=== PATIENT | female | born 1930 | race Caucasian/White ===

== ENCOUNTER 2018-01-26 15:47 | Inpatient (IN) | payer MEDICARE ==
[2018-01-26] MEDS ORDERED: cefTRIAXone\\ROCEPHIN 1 GM VIAL ONE (17:21)
--- NOTE | 2018-01-26 19:14 | CT ---
CT OF THE BRAIN WITHOUT CONTRAST 01/26/18 COMPARISON: None. HISTORY: Renal failure. Fall with head trauma. TECHNIQUE: Multiple contiguous axial images were obtained in a CT of the brain without contrast. FINDINGS: There are scattered hypodensities in the subcortical and periventricular white matter, likely seconda ry to small vessel ischemic disease. No large confluent infarction is seen. There is no evidence of h ydrocephalus, intracranial hemorrhage or extra-axial fluid collection. The calvarium and overlying soft tissues are unremarkable. The visualized paranasal sinuses and masto id air cells are well aerated. IMPRESSION: No evidence of acute intracranial abnormality. POS: [facility]
[2018-01-26] MEDS ORDERED: Ondansetron ODT 4 MG TAB SL PRN (19:23)
[2018-01-26] MEDS ORDERED: Ondansetron HCl/PF 4 MG/2 ML Vial IVP PRN (19:23)
[2018-01-26] MEDS ORDERED: Sodium Chloride 0.9% 1,000 ML IV SCH (19:23)
[2018-01-26] MEDS ORDERED: Acetaminophen 325 MG TAB PO PRN (19:23)
[2018-01-27] MEDS ORDERED: Guaifenesin DM 100-10/5 ML UDCUP PO PRN (01:13)
[2018-01-27] MEDS ORDERED: Zolpidem Tartrate 5 MG TAB PO PRN (01:13)
[2018-01-27] MEDS ORDERED: traMADol HCl 50 MG TAB PO PRN (01:15)
[2018-01-27] MEDS ORDERED: Dextrose 5% in Water 1,000 ML IV SCH (01:15)
--- NOTE | 2018-01-27 04:05 | HP ---
REASON FOR ADMISSION: Acute renal failure, metabolic acidosis with 22-pound weight loss in the last 3 months. HISTORY OF PRESENT ILLNESS: The patient gives history of having fallen 2 weeks back in the restroom. She sustained left thigh bruises and likely fell on the left side of her chest as well. As patient was not complaining of any issue, the patient and her daughter who live together they stayed at home with not seeking any attention. Around 3:00 in the morning yesterday, the patient fell in the hallway. She also tried to latch onto glass cupboard, which apparently broke in the process. This woke her daughter and saw patient was on the floor. The patient also was frequently wanting to urinate. The second time she urinated, it was almost bloody urine. The daughter took her to [facility] from where she was transferred here for higher level of care. The patient also mentions that she has lost nearly 22 pounds from last 3 months. She has not been able to drink or eat much. She has been walking by herself without any assistive devices at home. No complaints of bleeding per rectum. No complaints of cough or expectoration. No complaints of chest pain, palpitation , PND or orthopnea. PAST MEDICAL AND SURGICAL HISTORY: History of hypertension, insomnia, osteoarthritis, left eye retina surgery. CURRENT MEDICATIONS: Lisinopril 20 mg twice daily, zolpidem 5 mg p.o. at bedtime p.r.n. for insomnia, calcium with vitamin D 1 tab daily. ALLERGIES: Allergic to PENICILLIN. PERSONAL HISTORY: Does not abuse alcohol or drugs. No history of smoking. She stays with her daughter. FAMILY HISTORY: Mother of pneumonia and its complications at the age of 86 years. She does not know much about her biological dad. Her stepdad in his 60s from unknown cancer. Her 2 sons are . One due to alcoholism and cirrhosis and other son of suicide at the age of 54. CODE STATUS: DNR. This was discussed with patient at bedside. Power of patent prosecution attorney is her daughter who is here at bedside. REVIEW OF SYSTEMS: The following complete review of systems was negative, unless otherwise mentioned in the HPI or below: Constitutional: Weight loss or gain, ability to conduct usual activities. Skin: Rash, itching. Eyes: Double vision, pain. ENT/Mouth: Nose bleeding, neck stiffness, pain, tenderness. Cardiovascular: Palpitations, dyspnea on exertion, orthopnea. Respiratory: Shortness of breath, wheezing, cough, hemoptysis, fever or night sweats. Gastrointestinal: Poor appetite, abdominal pain, heartburn, nausea, vomiting, constipation, or diarrhea. Genitourinary: Urgency, frequency, dysuria, nocturia. Musculoskeletal: Pain, swelling. Neurologic/Psychiatric: Anxiety, depression. Allergy/Immunologic: Skin rash, bleeding tendency. PHYSICAL EXAMINATION: GENERAL: The patient is an 87-year-old female who is currently not in any acute distress. VITAL SIGNS: Blood pressure 164/58, pulse 70 per minute, respiratory rate 20 per minute, temperature 97.9 degrees Fahrenheit, saturating 97% on room air. NECK: Supple, no elevated JVD. HEENT: Eyes: Extraocular muscles intact. Pupils reacting to light. Oral cavity: Mucous membranes are dry. No exudates or congestion. CARDIOVASCULAR SYSTEM: S1, S2 heard. Regular rhythm. RESPIRATORY SYSTEM: Air entry 1+ bilateral. No rales or rhonchi. ABDOMEN: Soft, bowel sounds heard. No tenderness, rigidity, or guarding. EXTREMITIES: No peripheral edema or calf tenderness. VASCULAR SYSTEM: Peripheral pulses 1+ bilateral, no ischemic ulcerations or gangrene. CENTRAL NERVOUS SYSTEM: No gross focal deficits seen. The patient is alert, awake, oriented well. PSYCHIATRIC SYSTEM: The patient's mood is euthymic. No hallucinations or delusions. LABORATORY DATA AND X-RAY FINDINGS: EKG done shows sinus rhythm with Q-waves seen in V1, V2, V3. White count of 6, H and H 10 and 32, platelet count 169, MCV is 98 with 69% neutrophils. Potassium is 5.5, sodium is 132, serum bicarbonate is 12, BUN 95, creatinine 4.8, glucose 91. UA shows more than 300 mg per deciliter of protein, positive nitrite, small bilirubin, small leukocyte esterase, greater than 50 wbc's, and 3+ bacteria. PA view chest with left rib series done shows fractures of left 8th and 9th rib, no acute infiltrate. CT brain shows no acute intracranial abnormality. Lumbar spine CT shows no acute osseous abnormality. CLINICAL IMPRESSION AND PLAN: The patient will be admitted to telemetry for acute renal failure, metabolic acidosis, urinary tract infection. The patient apparently had normal creatinine last year. It is unclear the reason for her 22 -pound weight loss with loss of appetite, which has been progressive from last 3 months. We will obtain CT chest, abdomen, and pelvis without contrast and ultrasound of the kidneys as well. Echo with 2D Doppler for LV function. She will be gently hydrated with D5 water at 75 mL per hour. We will consult Dr. Guadarrama for Nephrology. She will continue Norvasc 5 mg daily and Ambien p.r.n. for insomnia. Her overall prognosis is guarded given her age of 87 years and current acute renal failure. Please note I have seen and [facility]
[2018-01-27 05:45] LABS: #Eosinphils 0.1 thou/uL (0.0-0.7); #Lymphocytes 1.5 thou/uL (1.20-3.40); #Monocytes 0.5 thou/uL (0.11-0.59); #Neutrophils 6.8 thou/uL (1.40-6.50); %Basophils 0.1 % (0.0-1.0); %Eosinophils 0.9 % (0.0-10.0); %Lymphocytes 16.8 % (21.0-51.0); %Monocytes 5.5 % (0.0-10.0); %Neutrophils 76.7 % (42.0-75.0); Hemoglobin 12.2 g/dL (12.0-16.0); Mean Corpuscular HGB CONC 34.2 g/dL (32.0-36.0); Mean Corpuscular Hemoglobin 34.3 pg (27.0-31.0); Mean Platelet Volume 7.5 fL (7.4-10.4); Platelet Count 203 thou/uL (130-400); RBC Distribution Width 12.8 % (11.5-14.5); Red Blood Cell (RBC) Count 3.56 mill/uL (4.20-5.40); White Blood Cell (WBC) Count 8.8 thou/uL (4.8-10.8)
[2018-01-27 06:15] LABS: Anion Gap 16 mmol/L (10-20); BUN (Urea Nitrogen) 86 mg/dL (9.8-20.1); BUN/Creatinine Ratio 19.33; Calc. Creatinine Clearance 8 mL/min (70-130); Calcium 9.3 mg/dL (7.8-10.44); Carbon Dioxide 12 mmol/L (23-31); Chloride 112 mmol/L (98-107); Estimated GFR-MDRD 9; Glucose 96 mg/dL (83-110); Sodium 135 mmol/L (136-145)
--- NOTE | 2018-01-27 09:31 | CON ---
DATE OF CONSULTATION: 01/27/2018 RENAL MEDICINE SUBJECTIVE: Ms. Saha is an 87-year-old white female who was admitted for an acute kidney injury. According to the history, the patient has had frequent falls. In addition, she has had significant w eight loss. Of interest is she is also taking an MATTEO inhibitor and lisinopril. She is now admitted for further management of this acute kidney injury as well as a consultation for further renal evalua tion. Patient is currently receiving D5 water at 75 mL per hour. My plan is to change this to D5 no rmal saline at 100 mL per hour. REVIEW OF SYSTEMS: Positive for decreased appetite. Positive for frequent falls, no nausea, no vomi ting. Denies any hematochezia, no melena, no syncopal episode. Positive for rib pain, no headache, no syncopal episode, no productive cough, no fever or chills, decreased appetite, decreased energy le kennedy. HOME MEDICATIONS: Include lisinopril 20 mg tab twice a day, Ambien 5 mg at bedtime, calcium 1 tab ev day. TRAUMA: Status post fall. IMMUNIZATIONS: Not up to date. HOSPITALIZATIONS: Please see past medical history. SOCIAL HISTORY: The patient lives in [place]. She has 4 children, 2 . 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 Education; high school. Sedentary lifestyle. Lives with her daughter. No IV drug us e, no smoking, no alcohol intake. FAMILY HISTORY: No family history of ESRD. CODE STATUS: The patient is DNR. ALLERGIES: Includes PENICILLIN, POLYMYXIN B, NEOMYCIN, BACITRACIN. PHYSICAL EXAMINATION: VITAL SIGNS: Blood pressure 142/64, heart rate 73, respiratory rate 16, temperature 98.4, pulse ox 9 2%. GENERAL: Awake, supine, comfortable. SKIN: Decreased turgor. HEENT: She has pinkish conjunctivae, anicteric sclerae. NECK: No neck mass, no carotid bruits, no JVD. CHEST: No deformities. LUNGS: Clear breath sounds, no wheezing, no crackles. HEART: Normal sinus rhythm. No murmurs, no gallops, no rubs. ABDOMEN: Globular, soft, nontender, no masses. EXTREMITIES: No edema, no deformities. NEUROLOGIC: Awake, oriented to 3 spheres. Moving all extremities. No tremors, no asterixis, no josh fartun. IMAGING DATA: 1. On 01/26/2018, chest x-ray/ribs - no CHF. There are fractures involving the left 8th and 9th rib s. 2. CT scan of the head on 01/26/2018 showed no acute intracranial abnormality. 3. CT scan of the lumbar spine, no acute osseous abnormality. LABORATORY DATA: 1. Laboratories of 01/27/2018; sodium 135, potassium 5, chloride 112, carbon dioxide 12, BUN 86, cre atinine 4.45, and phosphorus is 5. 2. On 01/26/2018, creatinine 4.83. 3. On 05/25/2017, creatinine 0.86. 4. Urinalysis of 01/26/2018 showed WBC of 50, RBC of 50, protein is greater than 300, urine bacteria 3+. MEDICATIONS: Medications of 01/27/2018, Norvasc 5 mg daily, Lovenox 30 mg subcu daily status post ce ftriaxone 1 gram x1 dose. ASSESSMENT AND PLAN: 1. Acute kidney injury - urinalysis did not show any evidence of acute tubular necrosis. She does h ave proteinuria. She may simply have a hemodynamically mediated renal dysfunction suggested by a mayte y concentrated urine. Agree with IV hydration. We will change IV fluid to D5 normal saline at 100 m L per hour. I do anticipate improvement with the renal function. There is no indication for any acu te dialytic intervention. 2. Metabolic acidosis - most likely related to her acute kidney injury. I suspect this will improve with improving renal function. 3. Pyuria/hematuria - clinically asymptomatic. I would probably just observe her. 4. A renal ultrasound has been ordered to rule out any intrinsic renal problem. Overall, agree with current management.
[2018-01-27] MEDS: Docusate 100 MG CAP PO SCH ×2 (10:31→22:34)
[2018-01-27] MEDS: Enoxaparin Sodium 30 MG/0.3 ML SYRINGE SC SCH (10:34)
[2018-01-27] MEDS: Amlodipine 5 MG TAB PO SCH (10:34)
[2018-01-27] MEDS: Famotidine 20 MG TAB PO SCH (10:34)
[2018-01-27] MEDS: Dextrose 5 % And 0.9 % NaCl 1,000 ML IV SCH ×2 (10:39→21:29)
--- NOTE | 2018-01-27 12:31 | ULT ---
ULTRASOUND RENAL BILATERAL STANDARD: HISTORY: Renal failure. COMPARISON: CT same day. FINDINGS: The right kidney measures 10.4 x 5.6 x 4.8 cm and the left kidney measures 9.7 x 5 x 5.4 cm. Prevoid urinary bladder is 300 mL. There is layering debris versus mass within the posterior wall urinary b ladder. The wall is abnormally thickened. IMPRESSION: 1. Flat urothelial mass versus more likely debris within the urinary bladder with extensive wall thi ckening. Direct visualization is recommended. 2. No evidence of obstructive uropathy. POS: [facility]
--- NOTE | 2018-01-27 12:55 | CT ---
CT CHEST WITHOUT CONTRAST: CT ABDOMEN WITHOUT CONTRAST: CT PELVIS WITHOUT CONTRAST: HISTORY: Twenty-two pound weight loss. Renal failure. Evaluate for mass. COMPARISON: None. FINDINGS: The lungs are clear. No focal air space consolidation, pneumothorax, or effusion. Small perifissura l lymph nodes. There is a mildly displaced fracture at the left lateral 8th rib. There is a fracture of the left po sterolateral 9th rib with one-half shaft width displacement. A posterior left 10th rib buckle fractu re is present. No thoracic spine compression deformity. The sternum and manubrium are intact. No thoracic spine compression fracture. No lumbar spine compr ession fracture. 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 Mild atherosclerotic plaque of the aorta. No pericardial effusion. There is abnormal inflammation surrounding the urinary bladder with areas of wall thickening. There is abnormal infiltration to the prevesical space. No dilated loops of large or small bowel. No free intraperitoneal gas or fluid. No aneurysmal dilat ation of the aorta. No hydroureteronephrosis or nephroureterolithiasis. No evidence of a recently passed stone. IMPRESSION: Extensive wall thickening of the urinary bladder with abnormal infiltration to the prevesical space. This may be sequela or cystitis versus a malignant process. Direct visualization recommended. Urol ogic consultation recommended. CODE T POS: [facility]
--- NOTE | 2018-01-27 14:23 | PDOC.PN ---
- Subjective Encounter Start Date: 01/27/18 Encounter Start Time: 11:40 Patient denies complaints. She denies being cold in spite of low body temp. On review she reports decreased appetite and weight loss for 3 months. Generalized fatigue. - Objective Resuscitation Status: Resuscitation Status DNR:Do Not Resuscitate Vital Signs & Weight: Vital Signs (12 hours) Temp Pulse Pulse Pulse Resp BP BP 01/27/18 10:34 73 142/64 H 01/27/18 08:31 69 74 162/69 H 01/27/18 07:30 98.4 F 73 16 01/27/18 04:00 97.4 F L 74 16 BP BP Pulse Ox Pulse Ox 01/27/18 10:34 01/27/18 08:31 181/70 H 90 L 01/27/18 07:30 142/64 H 92 L 01/27/18 04:00 155/70 H 94 L Weight Admit Weight 127 lb 12.8 oz Weight 127 lb 12.8 oz I&O: 01/26/18 01/27/18 01/28/18 06:59 06:59 06:59 Intake Total 250 Output Total 650 Balance -400 Result Diagrams: 01/27/18 05:27 01/27/18 05:27 Phys Exam - Physical Examination Constitutional: NAD HEENT: PERRLA, moist MMs, oral pharynx no lesions Neck: no nodes, no JVD Respiratory: no wheezing, no rales, clear to auscultation bilateral Cardiovascular: RRR, no significant murmur Gastrointestinal: soft, non-tender, no distention Musculoskeletal: no edema Psychiatric: normal affect Dx/Plan (1) ARF (acute renal failure) Status: Acute Plan: Etiology is unclear, but may be related to meds and decreased intake. Nephrology consulted. Continue with fluids. (2) UTI (urinary tract infection) Status: Acute Qualifiers: Urinary tract infection type: acute cystitis Plan: Will continue with Rocephin renally dosed starting tomorrow. (3) Weight loss, abnormal Code(s): R63.4 - ABNORMAL WEIGHT LOSS Status: Acute Plan: Had CT chest abdomen and pelvis with some bladder wall thickening. No other major pathology seen. May be secondary to uremia. (4) Hypothermia Code(s): T68.XXXA - HYPOTHERMIA, INITIAL ENCOUNTER Status: Acute Plan: Likely somewhat benign secondary to being in the scanner for a period of time. Ordered warming therapy. Does not appear to be secondary sepsis. (5) Essential hypertension Code(s): I10 - ESSENTIAL (PRIMARY) HYPERTENSION Status: Chronic - Plan * As above.
--- NOTE | 2018-01-28 00:21 | CON ---
DATE OF CONSULTATION REQUEST AND REPORT: 01/27/2018 REASON FOR CONSULTATION: 1. Gross hematuria, R31.0 2. Urinary retention, R33.9 3. Abnormal urinary tract, radiological, R93.49 4. Cystitis, N30.90 5. Abnormal weight loss, R63.4 6. Acute renal insufficiency, N28.9 HISTORY OF PRESENT ILLNESS: Ms. Karin Saha is a pleasant 87-year-old elderly white female who resides at home in the care of her daughter. Over the last month or so, Ms. Saha has lost her appetite and has been having difficulty with feeding and maintaining adequate hydration. The patient does not report significant colon difficulties. No diarrhea at home and does have a chronic history of constipation, but this has not been bad over the last month. The patient apparently has developed a relative anorexia and desired not to eat over the last month. The patient has had some urinary frequency at home up to every 30 minutes. The patient is postmenopausal and has not had any previous gynecologic surgeries. She has never been on hormonal replacement therapy. She is a lifelong nonsmoker, but did have significant secondhand cigarette smoke exposure from her who was a smoker. Her daughter also smokes. Ms. Saha acts as a partial historian for herself today and her daughter also acts as a partial historian. HOME MEDICATION: List includes; 1. Lisinopril 20 mg twice daily. 2. Ambien 5 mg at bedtime. 3. Calcium 1 tablet p.o. daily. SOCIAL HISTORY: The patient resides in [place]. She has run a refill shop for number of years and also had [employer] business where she might have had some industrial exposures. There were no lifetime employment exposures other than this to significant chemicals that may result in cancer. The patient has no history of drug abuse, personal smoking or alcohol intake. FAMILY MEDICAL HISTORY: No history of bladder or renal cancers. No history of renal disease. ALLERGIES: The patient is allergic to PENICILLIN, POLYMYXIN, NEOMYCIN, and BACITRACIN. REVIEW OF SYSTEMS: Constitutional: Positive for a 22-pound weight loss. Musculoskeletal: Negative. Neurologic: Negative for past history of stroke. Gastrointestinal: Positive for decreased appetite. Negative for hematochezia or melena. Cardiac: The patient does have positive history of recent chest pain secondary to rib fractures after a fall, but did not have it prior to this. Endocrinologic: Negative for history of diabetes or endocrinologic disorders. PHYSICAL EXAMINATION: VITAL SIGNS: As per chart. The patient's current heart rate is 105, respirations 12. HEAD, EYES, EARS, NOSE, AND THROAT: Extraocular movements are intact. Sclerae are anicteric. Oropharynx is clear. The patient is dentures. SKIN: Examination of skin finds contusion on the patient's left forehead. NECK: Supple. There is positive jugular venous distention. CARDIAC: There is a regular, but tachycardic rate. PULMONARY: Lungs are clear to auscultation bilaterally. ABDOMEN: Soft and nontender. Patient has no suprapubic fullness or distention. GENITOURINARY: Deferred to the operative suite. EXTREMITIES: Free of evidence of deformity or edema. NEUROLOGIC: Patient is alert and oriented. She has a little trouble with dates and with the trial paralegal, but was able to get it on a secondary guess. She seems to have some reasonable recall and short-term memory that appears reasonable. LABORATORY STUDIES: The patient's baseline creatinine in 05/2017 was 0.86. At admission, creatinine is 4.83. The patient's creatinine did come down minimally to 4.45 overnight. The patient's hemoglobin is 12.2 with hematocrit of 35.7. White cell indices show a left shift of 76%. Urinalysis shows 50 white cells and 50 red cells, protein greater than 300, and urine bacteria 3+. RADIOLOGIC STUDIES: A renal ultrasound with bladder evaluation shows possible posterior bladder wall debris accumulation similar findings observed on CT scan , in both studies, bladder is relatively full. On the CT scan, notable findings of possible diffuse infiltration of the bladder wall and bladder wall thickening. ASSESSMENT AND PLAN: 1. Acute kidney injury, possibly secondary to dehydration given with a history of inadequate fluid and food intake. 2. Metabolic acidosis, probably related to the patient's kidney injury as well as inadequate food intake. 3. Pyuria, hematuria history. The patient did have hematuria on her second void after her fall. This could be related to her fall directly, we do not have contrast imaging studies, so it is not possible to completely assess for possible kidney fracture injury or other issue. Her kidney function is too poor to allow that at this point. 4. Postmenopausal status, not on hormonal replacement therapy. 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 Given two imaging studies with large amounts of urine seen in the patient's bladder, I suspect a degree of outlet obstruction is contributing to the patient's presentation and possible urinary tract infection as well. The patient should be appropriately covered on antibiotics during admission. I would plan on proceeding to the operating room for cystoscopic evaluation tomorrow evening. The patient should be made n.p.o. after breakfast in the morning of 01/28/2018. The patient may require transurethral resection of the bladder if there were tumors observed in her bladder lining. She appears relatively low risk except for age and possible industrial exposure to chemicals as well as secondhand smoke exposure from her . Over 70 minutes of initial evaluation and assessment time was spent in evaluation and assessment of this patient , over of which was in face to face evaluation or in coordination of care, or communication with the patient's family regarding her care, exclusive of any procedures performed, [id number]. MTDD
[2018-01-28] MEDS: Aztreonam 1 GM in Sodium Chloride 0.9% 100 ML IVPB SCH ×3 (05:26→23:04)
[2018-01-28 06:05] LABS: ALT (SGPT) 9 U/L (8-55); AST (SGOT) 18 U/L (5-34); Albumin 3.3 g/dL (3.4-4.8); Alkaline Phosphatase 161 U/L (40-150); Anion Gap 10 mmol/L (10-20); BUN (Urea Nitrogen) 76 mg/dL (9.8-20.1); Bilirubin, Total 0.4 mg/dL (0.2-1.2); Calc. Creatinine Clearance 9 mL/min (70-130); Calcium 8.7 mg/dL (7.8-10.44); Carbon Dioxide 14 mmol/L (23-31); Chloride 116 mmol/L (98-107); Estimated GFR-MDRD 10; Globulin 1.6 g/dL (2.4-3.5); Glucose 98 mg/dL (83-110); Potassium 4.9 mmol/L (3.5-5.1); Protein, Total 4.9 g/dL (6.0-8.3); Sodium 135 mmol/L (136-145)
--- NOTE | 2018-01-28 08:37 | PRG ---
DATE OF SERVICE: 01/28/2018 SUBJECTIVE: Ms. Saha is an 87-year-old white female who has been seen by the Renal Service for her acute kidney injury. At that time, I felt that this was a hemodynamically mediated renal dysfunctio n. She has been empirically volume repleted. A slight improvement in renal function was noted today . In addition, Urology has evaluated this patient for the hematuria and pyuria. A planned cystoscop y for tonight has been scheduled. She is currently on empiric IV antibiotics. Please note we have d iscontinued the patient's lisinopril due to the acute kidney injury. No new complaints today. She denies any chest pain, shortness of breath. OBJECTIVE: VITAL SIGNS: Blood pressure is 151/65, heart rate 73, respiratory rate 18, temperature 97.9, pulse o ximetry 95% on room air. GENERAL: Awake, alert, comfortable, not in distress. SKIN: Decreased turgor. HEENT: She has pinkish conjunctivae, anicteric sclerae. NECK: No neck mass, no carotid bruits, no JVD. CHEST: No deformities. LUNGS: Clear breath sounds. No wheezing, no crackles. HEART: Normal sinus rhythm. No murmur, no gallops or rubs. ABDOMEN: Globular, soft, nontender, no masses. EXTREMITIES: No edema. MEDICATIONS: Medications of 01/28/2018 was reviewed. LABORATORY DATA: Laboratories of 01/27/2018, white count 8.8, hemoglobin 12.2; 01/28/2018, sodium 13 5, potassium 4.9, chloride 116, carbon dioxide 14, BUN 76, creatinine of 4.1, albumin 3.3. ASSESSMENT AND PLAN: 1. Acute kidney injury -- consider hemodynamically mediated renal dysfunction. We will be reviewing a repeat urinalysis and urine chemistries with this patient. A renal ultrasound showed no acute obs truction. Continue current management. No indication for any dialytic intervention. 3. Hematuria/pyuria -- Urology has been consulted. Planned cystoscopy is being considered. Overall, agree with current management. We will be rechecking a base met and CBC in a.m. Urinalysis and urine chemistries have been ordered today.
[2018-01-28] MEDS: Famotidine 20 MG TAB PO SCH (09:07)
[2018-01-28] MEDS: Amlodipine 5 MG TAB PO SCH (09:07)
[2018-01-28] MEDS: Enoxaparin Sodium 30 MG/0.3 ML SYRINGE SC SCH (09:08)
[2018-01-28] MEDS: Docusate 100 MG CAP PO SCH ×2 (09:08→23:03)
--- NOTE | 2018-01-28 09:59 | PDOC.PN ---
- Subjective Encounter Start Date: 01/28/18 Encounter Start Time: 09:58 Doing a little better this morning. She is still having some bladder spasms. Hungry this morning. - Objective Resuscitation Status: Resuscitation Status DNR:Do Not Resuscitate Vital Signs & Weight: Vital Signs (12 hours) Temp Pulse Resp BP BP Pulse Ox 01/28/18 09:07 75 158/72 H 01/28/18 04:00 97.9 F 73 18 151/65 H 95 Weight Admit Weight 127 lb 12.8 oz Weight 127 lb 12.8 oz I&O: 01/27/18 01/28/18 01/29/18 06:59 06:59 06:59 Intake Total 250 1640 0 Output Total 650 550 Balance -400 1090 0 Result Diagrams: 01/27/18 05:27 01/28/18 05:25 Phys Exam - Physical Examination Constitutional: NAD HEENT: PERRLA, moist MMs Respiratory: no wheezing, no rales, no rhonchi, clear to auscultation bilateral Cardiovascular: RRR, no significant murmur Gastrointestinal: soft, non-tender, no distention, positive bowel sounds Musculoskeletal: no edema Neurological: non-focal Psychiatric: normal affect Dx/Plan (1) ARF (acute renal failure) Status: Acute Plan: Nephrology following. Continue with fluids. Slightly better this morning. May be related to outlet obstruction. Lost IV. Awaiting access. (2) UTI (urinary tract infection) Status: Acute Qualifiers: Urinary tract infection type: acute cystitis Plan: Received abx initially and no urine culture pending. Will resume Rocephin. (3) Weight loss, abnormal Code(s): R63.4 - ABNORMAL WEIGHT LOSS Status: Acute Plan: Unclear if related to uremia or other issue. Evaluating abnormal imaging of bladder. Hungry today which would suggest it may be related to uremia. (4) Bladder wall thickening Code(s): N32.89 - OTHER SPECIFIED DISORDERS OF BLADDER Status: Acute Plan: Appreciate Urology consult. Will have cysto later today. (5) Hypothermia Code(s): T68.XXXA - HYPOTHERMIA, INITIAL ENCOUNTER Status: Resolved (6) Essential hypertension Code(s): I10 - ESSENTIAL (PRIMARY) HYPERTENSION Status: Chronic - Plan * As above.
[2018-01-28] MEDS ORDERED: cefTRIAXone\\ROCEPHIN 1 GM in Sodium Chloride 0.9% 100 ML IVPB SCH (11:00)
[2018-01-28] MEDS: Dextrose 5 % And 0.9 % NaCl 1,000 ML IV SCH ×2 (12:36→18:44)
[2018-01-28 13:48] LABS: Bilirubin Negative (Negative); Blood, Urine Large (Negative); Clarity TURBID (Clear); Glucose, Urine (Dipstick) Negative (Negative); Leukocyte Large (Negative); Nitrite Negative (Negative); Protein, Urine (Dipstick) 100 mg/dL (Neg-Trace); Specific Gravity, Urine 1.015 (1.002-1.036); Urobilinogen 0.2 mg/dL (0.2-1.0)
[2018-01-28 13:52] LABS: Bacteria/HPF None Seen HPF (None Seen); Hyaline Casts/LPF 4-6 HYALINE CAST LPF (0-3 Hyaline); RBC/HPF GREATER THAN 50-TNTC HPF (0-3)
[2018-01-28] MEDS ORDERED: PHENYLEPHRINE-NS 100 MCG/ML 10 ML SYRINGE ONE (14:45)
[2018-01-28] MEDS ORDERED: PROPOFOL 200 MG/20 ML VIAL ONE (14:46)
--- NOTE | 2018-01-28 19:11 | PDOC.EVN ---
Event Note - Event Note Event Note: Procedure: Central venous access catheter (procedure aborted) 1600 01/28/18 Attending Physician: Perfecto Cabrales MD Assisting Physician: Vilma Robles DO Primary Primary Physician: Kelton Valerio DO Indication: IV access Attending physician in attendance Consent: Consent was obtained from the patients daughter (POA) for the procedure. Indications, risks and benefits were explained at length. The procedure was attempted routinely and a signed consent form was placed in the patients chart. Procedure summary: Sterile technique was used and hands were washed prior to beginning procedure. I wore a surgical cap, mask with protective eyewear, full gown and sterile gloves throughout the procedure. The pt was placed in the Trendelenburg position. Right chest and neck region was prepped using chlorhexadine scrub and draped in a sterile fashion. The medial and lateral heads of the SCM were identified as was the carotid pulse. The IJ vein was identified using US, but was found to be extremely sensitive to collapse. Anesthesia was achieved using 1 % lidocaine. The introducer needle was advanced with successful venous blood return after several attempts; however, upon attempting to advance the guide wire minor resistance was met and the guide wire was withdrawn. Introducer needle was withdrawn and pressure was held over IJ. After attempting IJ placement, pt was re-prepped and draped to attempt RT sublcavian access; however , pt had palpable pulse under the clavicle on the RT and as such there was concern for abnormal anatomy and no attempt was made for central venous catheter placement at the RT sublclavian site. Lastly, pt was again re-prepped and draped over rt groin and US was placed to identify anatomy which revealed a femoral vein directly behind the femoral artery. Ultimately, the procedure was aborted for the above reasons. The pt did not have any immediate complications from the procedure the nursing staff was notified upon completion of procedure. EBL was 25mL.
--- NOTE | 2018-01-28 19:31 | SPC ---
ULTRASOUND WITH FLUOROSCOPIC GUIDED PICC LINE PLACEMENT 01/28/18 COMPARISON: None. HISTORY: Need for fci IV antibiotics. Bladder mass biopsy. FINDINGS: The patient is brought to the [facility]. All questions were answered. The patient's left arm was prepped and draped in the normal sterile fashion. The basilic vein was not patent. No cephalic vein was available. The brachial vein had to be accessed . 1 mL of lidocaine was instilled in the superficial and deep soft tissues. Over a wire and through a peel away sheath, a PICC line was placed. The wire was unable to pass the axilla due to stenosis. Gi harleen that this line was for short term IV access, it was felt adequate that the line would be placed p eripherally. The line was cut at 15 cm with tip at the axillary vein. IMPRESSION: Technically successful ultrasound and fluoroscopic guided PICC line placement which is not central in location. The tip is at the mid peripheral left axillary vein. The patient tolerated the procedure well without complication. Findings were discussed with the patient's nurse by the technologist. FLUORO TIME: 2.7 minutes. DOSE: 2809 mGy*cm2. POS: HOME
[2018-01-28] MEDS ORDERED: Fentanyl 250 MCG/5 ML VIAL ONE (19:51)
[2018-01-28] MEDS ORDERED: Ondansetron HCl/PF 4 MG/2 ML Vial IVP PRN (20:14)
[2018-01-28] MEDS ORDERED: Bupivacaine 0.75% W/DEXTROSE 8.25% 2 ML AMP ONE (20:35)
[2018-01-28] MEDS ORDERED: Lidocaine 2% 10 ML INJ ONE (20:35)
[2018-01-28] MEDS ORDERED: cefTRIAXone\\ROCEPHIN 1 GM VIAL ONE (20:36)
[2018-01-28] MEDS ORDERED: Fentanyl 100 MCG/2 ML VIAL ONE (20:47)
[2018-01-28] MEDS ORDERED: Iothalamate Meglumine 60% 50 ML VIAL FS ONE (21:20)
[2018-01-28] MEDS ORDERED: Gentamicin 80 MG/2 ML VIAL ONE (21:29)
[2018-01-28] MEDS: Estrogens, Conjugated 30 GM TUBE VAG SCH (23:04)
--- NOTE | 2018-01-29 01:15 | CON ---
DATE OF CONSULTATION: 01/28/2018 CONSULTATION/PROGRESS NOTE DATE OF INITIAL CONSULTATION REQUEST: 01/27/2018 INITIAL REASON FOR CONSULTATION: 1. Gross hematuria, R31.0 2. Urinary retention, R33.9 3. Abnormal urinary tract, radiological, R93.49 4. Cystitis, N30.90 5. Abnormal weight loss, R63.4 6. Acute renal insufficiency, N28.9 HISTORY OF PRESENT ILLNESS: Ms. Karin Saha is a pleasant 87-year-old elderly white female brought in by her daughter with a history of a fall with rib fractures and gross hematuria developing after the fall. The patient had some imaging studies performed in the emergency department on 01/27/2018, which included a renal ultrasound study and a CT scan of the abdomen and pelvis. Both of these demonstrated the presence of layering of posterior bladder wall debris or tumor. I was consulted to evaluate the patient with regard to that and with regard to her gross hematuria episode. Yesterday, we recommended drainage catheter and culture the patient's urine collected by catheter method. The patient had about 400 mL of urine out by Daniels catheter during the day. She does have acute renal failure. A Gram stain of the patient's urine demonstrates presence of gram-negative rods. We did start the patient on aztreonam yesterday and she has also received a dose of ceftriaxone in addition. The patient is doing well, but complains of suprapubic discomfort today. She has had some access issues with respect to IV medications. The patient has been n.p.o. all day. PHYSICAL EXAMINATION: VITAL SIGNS: The patient has been afebrile by standard criteria with current temperature of 98.1, pulse 73, respirations 20, blood pressure is 156/65. HEAD, EARS, EYES, NOSE, AND THROAT: Extraocular movements are intact. Sclerae are anicteric. Oropharynx is clear. NECK: Supple. LUNGS: Clear to auscultation bilaterally. CARDIAC: Regular rate and rhythm. She is markedly less tachycardic than she was yesterday, apparently secondary to volume replacement. ABDOMEN: Superiorly is soft and nontender. Inferior to the umbilicus, there is tenderness in the suprapubic area suggestive of cystitis or a full bladder. I am not able to palpate a bladder mass or any other lesions. PELVIC: Deferred to the operative suite. EXTREMITIES: Appear essentially within normal limits with a few ecchymoses. LABORATORY STUDIES: Urinalysis from yesterday shows a urine gravity of 1.015. There is a large amount of leukocyte esterase. Microscopic analysis shows greater than 50 red cells per high-power field and greater than 50 white cells per high-power field. There were 4-6 squamous epithelial cells seen on the catheterized specimen. A CBC was not obtained today. Serum chemistries do show the patient's creatinine down mildly to 4.1 with a blood urea nitrogen now at 76. ASSESSMENT AND PLAN: 1. Concerns for posterior bladder wall mass. The patient will undergo cystoscopic assessment today. 2. General elderly concerns. The patient has had some trouble with urinary frequency and urgency for about 3-4 weeks. These symptoms predate the patient' s fall at home. She did have at least 1 gross hematuria episode at home. This was after her fall. The patient is at risk due to postmenopausal status for urethral stricture secondary to vaginal atrophy due to low-estrogen status. In addition, urinary tract infection in elderly is a concern. The patient is on appropriate antibiotics and does appear to have a current gram-negative urinary tract infection. She is on broad-spectrum coverage with 2 antibiotics and has been on the antibiotics for 24 hours. She is afebrile. 3. General health. The patient appears to be reasonably stable and will be suitable for cystoscopic assessment, possible urethral dilation if required. Over 35 minutes of subsequent evaluation and assessment time was spent in evaluation and assessment of this patient , over of which was in face to face evaluation, or in coordination of care, or communication with the patient's family regarding her care, exclusive of any procedures performed, [id number]. [facility]
--- NOTE | 2018-01-29 03:01 | OP ---
DATE OF PROCEDURE: 01/28/2018 PREPROCEDURAL DIAGNOSES: 1. Radiologic imaging abnormality on ultrasound and CT scan suggesting posterior bladder wall mass. 2. Bladder wall thickening on CT scan and ultrasound. 3. Pyuria. 4. Gross hematuria. POSTPROCEDURAL DIAGNOSES: 1. Pyuria. 2. No evidence of bladder tumor, other than reddened area on bladder wall which was biopsied. 3. 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 POSTOPERATIVE PROBLEM LIST 1. Gross hematuria, R31.0 2. Urinary retention, R33.9 3. Abnormal urinary tract, radiological, R93.49 4. Cystitis, N30.90 5. Abnormal weight loss, R63.4 6. Acute renal insufficiency, N28.9 7. 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 Post-menopausal atrophic vaginitis, N95.2 PROCEDURES PERFORMED: 1. Cystourethroscopy with bladder biopsy and fulguration of area 1 cm in diameter next to the left ureteric orifice, [address]. 2. Intravesical gentamicin instillation. 3. Cystoscopy Urethral dilation to [id number] SURGEON: Darian Solorio M.D. BRIEF HISTORY AND INDICATION FOR PROCEDURE: Ms. Karin Saha is a pleasant 87- year-old white female brought in by her daughter due to a history of a recent fall with gross hematuria and failure to thrive. The patient has had unexplained weight loss about 22 pounds in a month. The patient is not eating on a regular basis now due to her condition. The patient during course of hospital evaluation has been found to have a gram negative zayda in her urine and has been started on broad spectrum antibiotics. She also has acute renal failure secondary likely to debilitated and dehydrated status it is responding to rehydration therapy. Informed and written consent was obtained from the patient's daughter prior to the procedure. TECHNICAL PROCEDURE: The patient was appropriately identified in the preoperative area. Informed and written consent was verified. The patient was transported to the operative suite. A spinal anesthetic was placed by Anesthesia. The patient was placed in the full supine position and subsequently repositioned in the supine lithotomy position and prepped and draped in usual sterile fashion for cystoscopic assessment. The patient's pelvic examination shows periurethral prolapse of the posterior aspect of the patient's urethra consistent with low estrogen status. The patient's urethra was dilated to 36 British. Cystoscopic evaluation was performed using 22-British cystoscope sheath introduced with using an obturator. Area of pyuria and layering the posterior aspect of the patient's bladder was drained and completely washed from the bladder. Panendoscopic evaluation of the patient's bladder was found some irritation and bladder wall thickening secondary to probable infection. A biopsy was obtained next to the patient's left ureteric orifice. This was sent for permanent section. I cannot rule out carcinoma in situ based on the physical appearance of an irritated bladder wall. The base of the fulgurated area measured approximately 1 cm was fulgurated. Excellent hemostasis was obtained. We then applied 2 mL of gentamicin 40 mg per mL and chased this with an additional 10 mL of sterile saline. The patient was left without indwelling catheter. She tolerated the procedure well. There were no evident complications. ESTIMATED BLOOD LOSS: Less than 5 mL. SPECIMENS: Two biopsies were taken adjacent to the patient's left ureteric orifice which were reddened areas in the bladder west suggestive of CIS but not diagnostic for it. This could also be due to inflammation in the patient's bladder. CHAUD
[2018-01-29] MEDS: Dextrose 5 % And 0.9 % NaCl 1,000 ML IV SCH ×2 (05:16→11:39)
[2018-01-29 05:20] LABS: #Eosinphils 0.1 thou/uL (0.0-0.7); #Lymphocytes 1.2 thou/uL (1.20-3.40); #Monocytes 0.3 thou/uL (0.11-0.59); #Neutrophils 2.9 thou/uL (1.40-6.50); %Basophils 0.4 % (0.0-1.0); %Eosinophils 1.8 % (0.0-10.0); %Lymphocytes 26.7 % (21.0-51.0); %Neutrophils 64.2 % (42.0-75.0); Hemoglobin 9.8 g/dL (12.0-16.0); Mean Corpuscular HGB CONC 33.4 g/dL (32.0-36.0); Mean Corpuscular Hemoglobin 34.3 pg (27.0-31.0); Mean Platelet Volume 7.2 fL (7.4-10.4); Platelet Count 124 thou/uL (130-400); RBC Distribution Width 12.9 % (11.5-14.5); Red Blood Cell (RBC) Count 2.85 mill/uL (4.20-5.40); White Blood Cell (WBC) Count 4.5 thou/uL (4.8-10.8)
[2018-01-29 05:38] LABS: Anion Gap 13 mmol/L (10-20); BUN (Urea Nitrogen) 73 mg/dL (9.8-20.1); Calc. Creatinine Clearance 9 mL/min (70-130); Calcium 8.7 mg/dL (7.8-10.44); Chloride 117 mmol/L (98-107); Estimated GFR-MDRD 11; Glucose 101 mg/dL (83-110); Potassium 4.3 mmol/L (3.5-5.1); Sodium 135 mmol/L (136-145)
[2018-01-29 05:41] LABS: Carbon Dioxide 9 mmol/L (23-31)
[2018-01-29] MEDS ORDERED: Sodium Bicarb 50 MEQ/50 ML VIAL IV SCH (06:00)
[2018-01-29] MEDS: Enoxaparin Sodium 30 MG/0.3 ML SYRINGE SC SCH (09:06)
[2018-01-29] MEDS: Famotidine 20 MG TAB PO SCH (09:06)
[2018-01-29] MEDS: Amlodipine 5 MG TAB PO SCH (09:07)
[2018-01-29] MEDS: Docusate 100 MG CAP PO SCH ×2 (09:07→21:31)
[2018-01-29] MEDS: Aztreonam 1 GM in Sodium Chloride 0.9% 100 ML IVPB SCH ×2 (09:07→21:32)
--- NOTE | 2018-01-29 11:18 | PDOC.PN ---
- Subjective Encounter Start Date: 01/29/18 Encounter Start Time: 11:17 Doing very well. Says she is ready to go home. Eating very well today. Understands the situation well. - Objective Resuscitation Status: Resuscitation Status DNR:Do Not Resuscitate Vital Signs & Weight: Vital Signs (12 hours) Temp Pulse Resp BP Pulse Ox 01/29/18 09:07 75 01/29/18 09:00 97.7 F 75 18 130/60 99 01/29/18 01:00 98.3 F 75 19 150/67 H 98 Weight Admit Weight 127 lb 12.8 oz Weight 120 lb 14.4 oz I&O: 01/28/18 01/29/18 01/30/18 06:59 06:59 06:59 Intake Total 1640 1150 Output Total 550 1050 Balance 1090 100 Result Diagrams: 01/29/18 05:02 01/29/18 05:02 Phys Exam - Physical Examination Constitutional: NAD HEENT: PERRLA, moist MMs, oral pharynx no lesions Neck: no JVD Respiratory: no wheezing, no rales, no rhonchi, clear to auscultation bilateral Cardiovascular: RRR, no significant murmur Gastrointestinal: soft, non-tender, no distention Musculoskeletal: no edema Neurological: non-focal Psychiatric: normal affect Dx/Plan (1) ARF (acute renal failure) Status: Acute Plan: Atrophic vaginitis resulted in some urethral issues and bladder outlet obstruction. That led to ARF and symptomatic azotemia. Had thickened bladder wall, but cyto yesterday was negative for neoplasm and it was likely related to the chronic obstruction. She is improving with IVF. Anticipate a couple more days of IVF and improvement in her creatinine. (2) UTI (urinary tract infection) Status: Acute Qualifiers: Urinary tract infection type: acute cystitis Plan: No culture was obtained. There was some evidence of cystitis on the cystoscopy. On azactam. (3) Weight loss, abnormal Code(s): R63.4 - ABNORMAL WEIGHT LOSS Status: Acute Plan: Secondary to uremia. Eating well now. (4) Bladder wall thickening Code(s): N32.89 - OTHER SPECIFIED DISORDERS OF BLADDER Status: Acute Plan: Cysto negative for neoplasm. Likely related to chronic distention and possibly infection. (5) Hypothermia Code(s): T68.XXXA - HYPOTHERMIA, INITIAL ENCOUNTER Status: Resolved (6) Essential hypertension Code(s): I10 - ESSENTIAL (PRIMARY) HYPERTENSION Status: Chronic (7) Atrophic vaginitis Code(s): N95.2 - POSTMENOPAUSAL ATROPHIC VAGINITIS Status: Acute Plan: Vaginal estrogen cream. - Plan * Continue IVF for another day or two to address the ARF. * IV abx for now. No culture obtained to guide therapy. * Vaginal estrogen cream for atrophic vaginitis.
[2018-01-29] MEDS: Sodium Bicarbonate Tab 325 MG TAB PO SCH ×2 (14:52→21:31)
--- NOTE | 2018-01-29 17:55 | PRG ---
DATE OF SERVICE: 01/29/2018 SUBJECTIVE: Ms. Saha is an 87-year-old white female who was seen by the Renal Service for an acute kidney injury secondary to prerenal azotemia. She has been receiving volume repletion with slow imp rovement of the renal function. In the interim, she also underwent cystourethroscopy with bladder bi opsy and fulguration of an 1-cm area next to the left ureteric orifice. In addition, urethral dilata tion was also done. She was found to have urethral prolapse and urethral stricture. There was no ev idence of bladder tumor. She voices no new complaints except she wants to go home. OBJECTIVE: VITAL SIGNS: Blood pressure is 130/63, heart rate 80, respiratory rate 20, temperature 97.9, pulse o x 98% on room air. GENERAL: Awake, alert, comfortable, not in overt distress. SKIN: Decreased turgor. HEENT: She has slightly pale conjunctivae. Anicteric sclerae. NECK: No neck mass, no carotid bruits, no JVD. CHEST: No deformities. LUNGS: Decreased breath sounds. HEART: Normal sinus rhythm. No murmur, no gallops, no rubs. ABDOMEN: Globular, soft, nontender. No masses. EXTREMITIES: Shows no edema, no deformities. LABORATORY DATA: Laboratories of 01/29/2018, white count 4.5, hemoglobin 9.8, hematocrit 29.3. Sodi um 135, potassium 4.3, chloride 107, carbon dioxide 9, BUN 73, creatinine 3.75, calcium 8.7. ASSESSMENT AND PLAN: 1. Acute kidney injury -- hemodynamically mediated renal dysfunction. Continue IV hydration. Creat inine improved from 4.45 to most recent value of 3.75. Continue to hold off any MATTEO inhibitors or di uretics. 2. Metabolic acidosis -- started sodium bicarbonate 650 mg 1 tab b.i.d. Continue supportive care. There is no indication for any dialytic intervention. Recheck base met and CBC in a.m.
[2018-01-29] MEDS ORDERED: Heparin 1,000 UNITS/ML VIAL ONE (18:04)
[2018-01-29] MEDS ORDERED: cefTRIAXone\\ROCEPHIN 1 GM in Sodium Chloride 0.9% 100 ML IVPB SCH (21:00)
[2018-01-29] MEDS: Estrogens, Conjugated 30 GM TUBE VAG SCH (21:31)
[2018-01-30] MEDS: Dextrose 5 % And 0.9 % NaCl 1,000 ML IV SCH ×3 (03:03→17:49)
[2018-01-30 05:37] LABS: Anion Gap 11 mmol/L (10-20); BUN (Urea Nitrogen) 59 mg/dL (9.8-20.1); Calc. Creatinine Clearance 11 mL/min (70-130); Carbon Dioxide 13 mmol/L (23-31); Chloride 119 mmol/L (98-107); Estimated GFR-MDRD 13; Glucose 150 mg/dL (83-110); Potassium 3.5 mmol/L (3.5-5.1); Sodium 139 mmol/L (136-145)
[2018-01-30 06:55] LABS: Band 1 % (5-11); Eosinophils 1 % (0-10); Hemoglobin 9.8 g/dL (12.0-16.0); Lymphocytes 16 % (21-51); MDiff Complete? YES; Mean Corpuscular HGB CONC 33.5 g/dL (32.0-36.0); Mean Corpuscular Hemoglobin 33.7 pg (27.0-31.0); Mean Platelet Volume 7.4 fL (7.4-10.4); Monocytes 2 % (0-10); Neutrophil 80 % (42-75); PLT Morphology Comment Appears Adequate; Platelet Count 134 thou/uL (130-400); RBC Distribution Width 13.1 % (11.5-14.5); White Blood Cell (WBC) Count 4.3 thou/uL (4.8-10.8)
[2018-01-30] MEDS ORDERED: ALL ABX IVPB PRN (07:30)
[2018-01-30] MEDS: Enoxaparin Sodium 30 MG/0.3 ML SYRINGE SC SCH (10:45)
[2018-01-30] MEDS: Sodium Bicarbonate Tab 325 MG TAB PO SCH ×3 (10:50→20:14)
[2018-01-30] MEDS: Amlodipine 5 MG TAB PO SCH (10:50)
[2018-01-30] MEDS: Famotidine 20 MG TAB PO SCH (10:50)
[2018-01-30] MEDS: Docusate 100 MG CAP PO SCH ×2 (10:51→20:14)
--- NOTE | 2018-01-30 11:55 | PRG ---
DATE OF SERVICE: 01/30/2018 SUBJECTIVE: Ms. Saha is an 87-year-old white female, who was seen for her acute kidney injury. At that time, we felt that she may have hemodynamically-mediated renal dysfunction. She was given IV h ydration. Creatinine slowly improving with hydration. However, the concern is she still has poorly decreased appetite and is not eating well. She also underwent a cystourethroscopy with bladder biops y with her urologist. No overt evidence of bladder tumor was noted. No other complaints, no chest pain or shortness of breath. PHYSICAL EXAMINATION: VITAL SIGNS: Blood pressure is 147/69, heart rate 73, respiratory rate 18, temperature 97.7, pulse o x 100%. GENERAL EXAM: Alert, awake, lethargic, not in overt distress. SKIN: Decreased turgor. HEENT: She has a pinkish conjunctivae, anicteric sclerae. NECK: No neck mass, no carotid bruits, no JVD. CHEST: No deformities. LUNGS: Clear breath sounds, no wheezing, no crackles. HEART: Normal sinus rhythm. No murmur, no gallops, no rubs. ABDOMEN: Globular, soft, nontender, no masses. EXTREMITIES: No edema. Medications of 01/30/2018 was reviewed. LABORATORY DATA: Laboratories of 01/30/2018, white count 4.3, hemoglobin 9.8. Sodium 139, potassium 3.5, chloride 119, carbon dioxide 13, BUN 59, creatinine 3.37, GFR 13 mL per minute. Calcium 8. ASSESSMENT AND PLAN: 1. Acute kidney injury - consider hemodynamically-mediated renal dysfunction. Continue gentle volum e repletion. The slow improvement of the renal function with IV hydration might suggest she may have some degree of acute tubular necrosis. Continue supportive care. No indication for any dialysis. 2. Metabolic acidosis, slightly improved from 9 to a most recent value of 13. We will continue sodi um bicarbonate at 650 mg 1 tab t.i.d.
--- NOTE | 2018-01-30 12:44 | PDOC.PN ---
- Subjective Encounter Start Date: 01/30/18 Encounter Start Time: 11:00 Patient seen and examined for FRANTZ and other med issues. Poor appetite. No new complaints. No overnight events - Objective Resuscitation Status: Resuscitation Status DNR:Do Not Resuscitate MAR Reviewed: Yes Vital Signs & Weight: Vital Signs (12 hours) Temp Pulse Resp BP BP Pulse Ox 01/30/18 10:50 73 147/69 H 01/30/18 04:00 97.7 F 82 18 156/68 H 100 Weight Admit Weight 127 lb 12.8 oz Weight 134 lb 9.6 oz I&O: 01/29/18 01/30/18 01/31/18 06:59 06:59 06:59 Intake Total 1150 3910 Output Total 1050 1735 Balance 100 2175 Result Diagrams: 01/30/18 05:02 01/30/18 05:02 EKG Reviewed by me: Yes (Tele SR) Phys Exam - Physical Examination Constitutional: NAD Respiratory: no wheezing, no rhonchi Cardiovascular: RRR, no rub Gastrointestinal: soft, non-tender, positive bowel sounds Musculoskeletal: no edema Neurological: moves all 4 limbs Dx/Plan (1) ARF (acute renal failure) Status: Acute Comment: improving with IVF (2) Metabolic acidosis Code(s): E87.2 - ACIDOSIS Status: Acute Comment: improving. on Sodium bicarb PO (3) Atrophic vaginitis Code(s): N95.2 - POSTMENOPAUSAL ATROPHIC VAGINITIS Status: Acute Comment: on Estrogen (4) Bladder wall thickening Code(s): N32.89 - OTHER SPECIFIED DISORDERS OF BLADDER Status: Acute Comment : s/p biopsy (5) UTI (urinary tract infection) Status: Acute Qualifiers: Urinary tract infection type: acute cystitis Comment: on Atbx (6) Weight loss, abnormal Code(s): R63.4 - ABNORMAL WEIGHT LOSS Status: Acute (7) HTN (hypertension) Code(s): I10 - ESSENTIAL (PRIMARY) HYPERTENSION Status: Chronic Comment: on Amlodipine - Plan plan discussed w/ family, continue antibiotics, PT/OT, DVT proph w/lovenox, DVT proph w/SCDs Cont current meds as below, Cont IVF/Sodium bicarb -: Change diet to regular due to poor appetite -: AM labs -: Cont to monitor -: Adjust Atbx dose per renal function Review of Systems - Review of Systems Respiratory: negative: Cough, Dry, Shortness of Breath, Hemoptysis, SOB with Excertion, Pleuritic Pain, Sputum, Wheezing Cardiovascular: negative: chest pain, palpitations, orthopnea, paroxysmal nocturnal dyspnea, edema, light headedness, other Gastrointestinal: negative: Nausea, Vomiting, Abdominal Pain, Diarrhea, Constipation, Melena, Hematochezia, Other - Medications/Allergies Allergies/Adverse Reactions: Allergies Allergy/AdvReac Type Severity Reaction Status Date / Time bacitracin Allergy Unknown Verified 03/24/13 03:53 [From Neosporin ([id number])] bacitracin zinc Allergy Unknown Verified 03/24/13 03:53 [From Neosporin ([id number])] neomycin sulfate Allergy Unknown Verified 03/24/13 03:53 [From Neosporin (rab-iwz-eputl)] Penicillins Allergy Unknown Verified 03/24/13 03:53 polymyxin B Allergy Unknown Verified 03/24/13 03:53 [From Neosporin ([id number])] polymyxin B sulfate Allergy Unknown Verified 03/24/13 03:53 [From Polysporin] Medications: Current Medications Acetaminophen (Tylenol) 650 mg PO Q4H PRN PRN Reason: Headache/Fever or Pain Amlodipine Besylate (Norvasc) 5 mg PO DAILY [facility] Last Admin: 01/30/18 10:50 Dose: 5 mg Docusate Sodium (Colace) 100 mg PO BID [facility] Last Admin: 01/30/18 10:51 Dose: 100 mg Enoxaparin Sodium (Lovenox) 30 mg SC 0900 [facility] Last Admin: 01/30/18 10:45 Dose: 30 mg Estrogens Conjugated (Premarin Cream) 1.5 gm VAG HS [facility] Last Admin: 01/29/18 21:31 Dose: 1.5 gm Famotidine (Pepcid) 20 mg PO DAILY [facility] Last Admin: 01/30/18 10:50 Dose: 20 mg Guaifenesin/Dextromethorphan (Robitussin Dm) 15 ml PO Q4H PRN PRN Reason: Cough Dextrose/Sodium Chloride (D5 0.9% Ns) 1,000 mls @ 100 mls/hr IV .Q10H [facility] Last Admin: 01/30/18 03:03 Dose: 1,000 mls Aztreonam 0.5 gm/ Sodium (Chloride) 100 mls @ 100 mls/hr IVPB Q12HR [facility] Miscellaneous Medication (Pharmacy To Dose) 1 each IVPB DAILYPRN PRN PRN Reason: LABS Sodium Bicarbonate (Bicarbonate, Sodium) 650 mg PO TID [facility] Last Admin: 01/30/18 10:50 Dose: 650 mg Sodium Chloride (Flush - Normal Saline) 10 ml IVF Q12HR [facility] Last Admin: 01/30/18 10:52 Dose: 10 ml Sodium Chloride (Flush - Normal Saline) 10 ml IVF PRN PRN PRN Reason: Saline Flush Last Admin: 01/29/18 21:32 Dose: 10 ml Tramadol HCl (Ultram) 50 mg PO Q6H PRN PRN Reason: Pain 4-6 Zolpidem Tartrate (Ambien) 5 mg PO HSPRN PRN PRN Reason: Insomnia
[2018-01-30] MEDS: Estrogens, Conjugated 30 GM TUBE VAG SCH (20:14)
[2018-01-31 04:27] LABS: Albumin 2.7 g/dL (3.4-4.8); Anion Gap 9 mmol/L (10-20); BUN (Urea Nitrogen) 50 mg/dL (9.8-20.1); BUN/Creatinine Ratio 18.12; Calc. Creatinine Clearance 14 mL/min (70-130); Calcium 7.8 mg/dL (7.8-10.44); Carbon Dioxide 12 mmol/L (23-31); Chloride 122 mmol/L (98-107); Estimated GFR-MDRD 16; Glucose 121 mg/dL (83-110); Potassium 3.3 mmol/L (3.5-5.1); Sodium 140 mmol/L (136-145)
[2018-01-31 04:28] LABS: Lactic Acid 1.7 mmol/L (0.5-2.2)
[2018-01-31 04:31] LABS: Phosphorus 1.7 mg/dL (2.3-4.7)
[2018-01-31] MEDS: Dextrose 5 % And 0.9 % NaCl 1,000 ML IV SCH (04:53)
[2018-01-31 04:59] LABS: #Eosinphils 0.1 thou/uL (0.0-0.7); #Monocytes 0.3 thou/uL (0.11-0.59); #Neutrophils 2.5 thou/uL (1.40-6.50); %Basophils 0.5 % (0.0-1.0); %Eosinophils 1.5 % (0.0-10.0); %Lymphocytes 26.3 % (21.0-51.0); %Monocytes 7.1 % (0.0-10.0); %Neutrophils 64.6 % (42.0-75.0); Hemoglobin 9.3 g/dL (12.0-16.0); Mean Corpuscular HGB CONC 34.4 g/dL (32.0-36.0); Mean Corpuscular Hemoglobin 34.4 pg (27.0-31.0); PLT Morphology Comment Appears Decreased; Platelet Count 114 thou/uL (130-400); RBC Distribution Width 13.3 % (11.5-14.5); Red Blood Cell (RBC) Count 2.69 mill/uL (4.20-5.40); White Blood Cell (WBC) Count 3.8 thou/uL (4.8-10.8)
[2018-01-31] MEDS ORDERED: Potassium Phosphate 9 MMOL in Sodium Chloride 0.9% 100 ML IVPB SCH (06:30)
[2018-01-31] MEDS: Sodium Bicarbonate 100 MEQ in Dextrose 5% in Water 1,000 ML IV SCH ×2 (09:09→23:20)
[2018-01-31] MEDS: Famotidine 20 MG TAB PO SCH (09:10)
[2018-01-31] MEDS: Enoxaparin Sodium 30 MG/0.3 ML SYRINGE SC SCH (09:10)
[2018-01-31] MEDS: Amlodipine 5 MG TAB PO SCH (09:10)
[2018-01-31] MEDS: Docusate 100 MG CAP PO SCH ×2 (09:10→20:44)
[2018-01-31] MEDS: Sodium Bicarbonate Tab 325 MG TAB PO SCH ×3 (09:11→20:44)
--- NOTE | 2018-01-31 10:08 | PRG ---
DATE OF SERVICE: 01/31/2018 SERVICE: Renal Medicine. SUBJECTIVE: Ms. Saha is an 87-year-old white female, seen by the Renal Service for acute kidney in [facility]. We felt that this was a hemodynamically-mediated renal dysfunction. She has received IV hydra tion with improvement of the renal function. Her p.o. intake is still inadequate. I had a long disc ussion with the patient and the daughter regarding increasing her p.o. intake. No complaints today, no chest pain or shortness of breath. OBJECTIVE: VITAL SIGNS: Blood pressure is 161/65, heart rate 77, respiratory rate 16, temperature 98, pulse ox 96%. GENERAL EXAM: Awake, alert, supine, comfortable, not in distress. SKIN: Decreased turgor. HEENT: She has a slightly pale conjunctivae, anicteric sclerae. NECK: No neck mass, no carotid bruits, no JVD. CHEST: No deformities. LUNGS: Clear breath sounds. HEART: Normal sinus rhythm. No murmur, no gallops, no rubs. ABDOMEN: Globular, soft, nontender, no masses. EXTREMITIES: No edema, no deformities. Medications of 01/31/2018 was reviewed. LABORATORY DATA: Laboratories of 01/31/2018, sodium 140, potassium 3.3, chloride 122, carbon dioxide 12, BUN 50, creatinine 2.76, calcium is 7.8, phosphorus is 1.9, magnesium 2.0, albumin is 2.7. ASSESSMENT AND PLAN: 1. Hypoalbuminemia - on protein supplementation. 3. Acute kidney injury - secondary to hemodynamically-mediated renal dysfunction, slowly improving o mayte the last several days with IV hydration. Please note her creatinine peaked at 4.1 is currently 2 .76 with a GFR of 16 mL per minute. 3. Mild hypokalemia, p.r.n. replacement. 4. Metabolic acidosis. Continue sodium bicarbonate at 650 mg tablet t.i.d. Overall, prognosis remains guarded.
--- NOTE | 2018-01-31 13:52 | CON ---
DATE OF CONSULTATION: 01/31/2018. HISTORY OF PRESENT ILLNESS: This is an 87-year-old white female that I am seeing today on coverage f or Dr. Darian Solorio. She saw her last week. She had fallen at home, had some rib fractures, had some gross hematuria. At that time, an ultrasound and a CT scan showed a suggestion of perhaps a bladder tumor. Dr. Solorio did a cystoscopy on her on the . She had no bladder tumor of any size. She h ad some abnormal area of mucosa that was biopsied and fulgurated. She developed some hematuria today . It was light pink to red this morning and then much darker this afternoon. She also has not been emptying completely and has required some in and out catheterization and a catheter had been placed e deanna today, a 16 Israeli and the urine has been grossly bloody since. She is also back on Lovenox. She is on Azactam. She did have a low colony counts with gram-negative zayda that has not been furthe r worked up on her initial culture. She is also using some Premarin cream as she had urethral stenos is and Dr. Solorio had to dilate her to do the cystoscopic exam 3-4 days ago. Her vital signs showed t hat she has not had a fever or change in oxygen saturation or change in vital signs. Her hemoglobin is 9.3, it was 9.8 yesterday, 9.8 the day before and 12.2 on the when she came in. Her platelet count is slightly low at 114, although it was 124 two days ago. Apart from the Lovenox, she is not on any other medications that would put her at risk for bleeding. Her creatinine is elevated. It wa s 4.1 when she came in. It was 2.[address] Guadarrama is seeing her for that. I talked with th e patient and the patient's daughter and we went ahead and removed the indwelling catheter and replac ed it with a sterile prep and used a 22-Israeli three-way. We put 15 mL in the balloon. Irrigation p ort was plugged. We hand irrigated with about 500 mL of sterile water until it was just light pink i n color. We got out a [id number] amount of clots and did not seem to be getting any more clots on repeat flushing. The bladder was not distended. Catheter went in easily. Plan on leaving this larger size catheter in. The nurses know that they can hand irrigate it if necessary should her jojo turia worsen and we can also start her on continuous bladder irrigation. Her pathology from her blad edenilson biopsy on the is still pending in the computer. I discussed this with Dr. Solorio earlier thi s afternoon and I will let him know of the results when he returns to care for her tomorrow.
[2018-01-31] MEDS: Estrogens, Conjugated 30 GM TUBE VAG SCH (20:44)
--- NOTE | 2018-01-31 22:11 | PDOC.PN ---
- Subjective Encounter Start Date: 01/31/18 Encounter Start Time: 12:00 Patient seen and examined for FRANTZ/UTI. Gross hematuria +No new complaints. No overnight events - Objective Resuscitation Status: Resuscitation Status DNR:Do Not Resuscitate MAR Reviewed: Yes Vital Signs & Weight: Vital Signs (12 hours) Temp Pulse Resp BP BP Pulse Ox 01/31/18 20:00 97.9 F 81 20 150/68 H 97 01/31/18 16:57 98.8 F 81 16 147/74 H 92 L 01/31/18 12:00 97.9 F 80 16 146/57 H 97 Weight Admit Weight 127 lb 12.8 oz Weight 134 lb 9.6 oz I&O: 01/30/18 01/31/18 02/01/18 06:59 06:59 06:59 Intake Total 3910 1920 1900 Output Total 1735 1050 1500 Balance 2175 870 400 Result Diagrams: 01/31/18 03:35 01/31/18 03:35 Phys Exam - Physical Examination Constitutional: NAD Respiratory: no wheezing, no rhonchi Cardiovascular: RRR, no rub Gastrointestinal: soft, non-tender, positive bowel sounds Musculoskeletal: no edema Neurological: moves all 4 limbs Dx/Plan (1) ARF (acute renal failure) Status: Acute Comment: improving with IVF (2) Metabolic acidosis Code(s): E87.2 - ACIDOSIS Status: Acute Comment: improving. on Sodium bicarb PO (3) Atrophic vaginitis Code(s): N95.2 - POSTMENOPAUSAL ATROPHIC VAGINITIS Status: Acute Comment: on Estrogen (4) Bladder wall thickening Code(s): N32.89 - OTHER SPECIFIED DISORDERS OF BLADDER Status: Acute Comment : s/p biopsy (5) UTI (urinary tract infection) Status: Acute Qualifiers: Urinary tract infection type: acute cystitis Comment: on Atbx (6) Weight loss, abnormal Code(s): R63.4 - ABNORMAL WEIGHT LOSS Status: Acute (7) Hematuria, gross Status: Acute (8) HTN (hypertension) Code(s): I10 - ESSENTIAL (PRIMARY) HYPERTENSION Status: Chronic Comment: on Amlodipine (9) Electrolyte abnormality Code(s): E87.8 - OTH DISORDERS OF ELECTROLYTE AND FLUID BALANCE, NEC Status: Acute Comment: Hypokalemia/Hypophosphatemia - Plan DVT proph w/lovenox, DVT proph w/SCDs DC Lovenox -: Urology notified of hematuria -: AM labs -: Start bicarb drip for 12 hours then change to D5w -: Monitor Review of Systems - Review of Systems Respiratory: negative: Cough, Dry, Shortness of Breath, Hemoptysis, SOB with Excertion, Pleuritic Pain, Sputum, Wheezing Cardiovascular: negative: chest pain, palpitations, orthopnea, paroxysmal nocturnal dyspnea, edema, light headedness, other - Medications/Allergies Allergies/Adverse Reactions: Allergies Allergy/AdvReac Type Severity Reaction Status Date / Time bacitracin Allergy Unknown Verified 03/24/13 03:53 [From Neosporin ([id number])] bacitracin zinc Allergy Unknown Verified 03/24/13 03:53 [From Neosporin ([id number]-[id number])] neomycin sulfate Allergy Unknown Verified 03/24/13 03:53 [From Neosporin ([id number]-[id number])] Penicillins Allergy Unknown Verified 03/24/13 03:53 polymyxin B Allergy Unknown Verified 03/24/13 03:53 [From Neosporin ([id number])] polymyxin B sulfate Allergy Unknown Verified 03/24/13 03:53 [From Polysporin] Medications: Current Medications Acetaminophen (Tylenol) 650 mg PO Q4H PRN PRN Reason: Headache/Fever or Pain Amlodipine Besylate (Norvasc) 5 mg PO DAILY [facility] Last Admin: 01/31/18 09:10 Dose: 5 mg Docusate Sodium (Colace) 100 mg PO BID [facility] Last Admin: 01/31/18 20:44 Dose: 100 mg Estrogens Conjugated (Premarin Cream) 1.5 gm VAG HS [facility] Last Admin: 01/31/18 20:44 Dose: 1.5 gm Famotidine (Pepcid) 20 mg PO DAILY [facility] Last Admin: 01/31/18 09:10 Dose: 20 mg Guaifenesin/Dextromethorphan (Robitussin Dm) 15 ml PO Q4H PRN PRN Reason: Cough Aztreonam 0.5 gm/ Sodium (Chloride) 100 mls @ 100 mls/hr IVPB Q12HR [facility] Last Admin: 01/31/18 20:43 Dose: 100 mls Dextrose/Water (D5w) 1,000 mls @ 75 mls/hr IV .[id number] [facility] Miscellaneous Medication (Pharmacy To Dose) 1 each IVPB DAILYPRN PRN PRN Reason: LABS Potassium Chloride (Klor-Con) 20 meq PO NOW [facility] Stop: 01/31/18 23:59 Sodium Bicarbonate (Bicarbonate, Sodium) 650 mg PO TID [facility] Last Admin: 01/31/18 20:44 Dose: 650 mg Sodium Chloride (Flush - Normal Saline) 10 ml IVF Q12HR [facility] Last Admin: 01/31/18 20:44 Dose: 10 ml Sodium Chloride (Flush - Normal Saline) 10 ml IVF PRN PRN PRN Reason: Saline Flush Last Admin: 01/29/18 21:32 Dose: 10 ml Tramadol HCl (Ultram) 50 mg PO Q6H PRN PRN Reason: Pain 4-6 Zolpidem Tartrate (Ambien) 5 mg PO HSPRN PRN PRN Reason: Insomnia
[2018-01-31] MEDS: Dextrose 5% in Water 1,000 ML IV SCH (23:33)
--- NOTE | 2018-01-31 23:43 | EKG ---
Test Reason : NITZA Blood Pressure : / mmHG Vent. Rate : 068 BPM Atrial Rate : 068 BPM P-R Int : 196 ms QRS Dur : 112 ms QT Int : 406 ms P-R-T Axes : 058 -37 057 degrees QTc Int : 431 ms Normal sinus rhythm Left axis deviation Septal infarct , age undetermined Abnormal ECG No previous ECGs available Confirmed by Raudel GARSIA ([id number]) on 01/31/2018 11:42:42 PM Referred By: STAT Confirmed By:Raudel GARSIA
[2018-02-01] MEDS: Acetaminophen 325 MG TAB PO PRN (00:36)
[2018-02-01 04:41] LABS: #Eosinphils 0.1 thou/uL (0.0-0.7); #Lymphocytes 1.3 thou/uL (1.20-3.40); #Monocytes 0.4 thou/uL (0.11-0.59); #Neutrophils 4.2 thou/uL (1.40-6.50); %Basophils 0.3 % (0.0-1.0); %Eosinophils 1.8 % (0.0-10.0); %Lymphocytes 21.3 % (21.0-51.0); %Monocytes 6.1 % (0.0-10.0); %Neutrophils 70.5 % (42.0-75.0); Hemoglobin 8.4 g/dL (12.0-16.0); Mean Corpuscular HGB CONC 35.8 g/dL (32.0-36.0); Mean Corpuscular Hemoglobin 35.5 pg (27.0-31.0); Mean Platelet Volume 7.6 fL (7.4-10.4); Platelet Count 114 thou/uL (130-400); RBC Distribution Width 13.4 % (11.5-14.5); Red Blood Cell (RBC) Count 2.36 mill/uL (4.20-5.40)
[2018-02-01 04:56] LABS: Albumin 2.6 g/dL (3.4-4.8); Anion Gap 7 mmol/L (10-20); BUN (Urea Nitrogen) 48 mg/dL (9.8-20.1); BUN/Creatinine Ratio 22.33; Calc. Creatinine Clearance 18 mL/min (70-130); Calcium 7.7 mg/dL (7.8-10.44); Carbon Dioxide 16 mmol/L (23-31); Chloride 119 mmol/L (98-107); Estimated GFR-MDRD 22; Glucose 109 mg/dL (83-110); Magnesium 1.7 mg/dL (1.6-2.6); Potassium 3.7 mmol/L (3.5-5.1); Sodium 138 mmol/L (136-145)
[2018-02-01 05:16] LABS: Phosphorus 1.7 mg/dL (2.3-4.7)
[2018-02-01] MEDS ORDERED: K-Phos Neutral 250 MG TAB PO SCH (08:45)
[2018-02-01] MEDS: Amlodipine 5 MG TAB PO SCH (08:47)
[2018-02-01] MEDS: Famotidine 20 MG TAB PO SCH (08:48)
[2018-02-01] MEDS: Sodium Bicarbonate Tab 325 MG TAB PO SCH ×3 (08:48→20:42)
[2018-02-01] MEDS: Docusate 100 MG CAP PO SCH ×2 (08:48→20:43)
--- NOTE | 2018-02-01 09:56 | PRG ---
DATE OF SERVICE: 02/01/2018 SUBJECTIVE: Ms. Saha is an 87-year-old white female who was seen for an acute kidney injury. The patient's renal functions has slowly been improving over the last several days with IV hydration. Hussein seymour was noted to have some gross hematuria. Please note she is status post cystoscopy. In addition, h er Lovenox has been discontinued. No other complaints. She is eating better. No chest pain or shor tness of breath. OBJECTIVE: VITAL SIGNS: Blood pressure 149/68, heart rate 81, respiratory 20, temperature 97.9, pulse ox 97% ro om air. GENERAL: Awake, supine, comfortable, not in distress. SKIN: Decreased turgor. HEENT: Slightly pale conjunctivae, anicteric sclerae. NECK: No neck mass, no carotid bruits, no JVD. CHEST: No deformities. LUNGS: Clear breath sounds. HEART: Normal sinus rhythm. No murmur, no gallops, no rubs. ABDOMEN: Globular, soft, nontender, no masses. EXTREMITIES: No edema. MEDICATIONS: 02/01/2018 - Reviewed. LABORATORY: 02/01/2018 - White count 6, hemoglobin 8.4. Sodium 138, potassium 3.7, chloride 119, ca rbon dioxide 16, BUN 48, creatinine 2.15, GFR 22 mL per minute. Phosphorus is 1.7, calcium 7.7, albu min 2.6. ASSESSMENT AND PLAN: 1. Acute kidney injury - hemodynamically mediated renal dysfunction. Improving renal function with gentle volume repletion. Again, I encouraged the patient to increase her p.o. and fluid intake. 2. Anemia. Continue to observe. Off Lovenox. 3. Gross hematuria - status post cystoscopy - Urology is following. 4. Mild hypophosphatemia, K-Phos has been started on this patient. 5. Metabolic acidosis, slowly improving. Continue sodium bicarbonate 650 mg p.o. t.i.d. We will recheck base met and CBC in a.m.
--- NOTE | 2018-02-01 10:24 | PQF ---
CLINICAL DOCUMENTATION IMPROVEMENT CLARIFICATION FORM: ICD-10 Updated PLEASE DO AN ADDENDUM TO THE PROGRESS NOTE WITH ANY DOCUMENTATION UPDATES OR ADDITIONS AND CARRY THROUGH TO DC SUMMARY. THANK YOU. Date: 02/01/2018 ATTN: DR. MICHELLE ROSAS Please exercise your independent, professional judgment in responding to the clarification form. Clinical indicators are provided on the bottom of this form for your review Please check appropriate box(s): [ ] Protein Calorie Malnutrition: [ ] Mild [ ] Moderate [ ] Severe [ ] Other Malnutrition (please specify) __ [ ] Underweight without malnutrition [ ] Cachexia [ ] Other diagnosis [ ] Unable to determine CLINICAL INDICATORS - SIGNS / SYMPTOMS / LABS BMI: 20.0 PHYSICIAN H&P DOCUMENTATION 01/26: HX OF PRESENT ILLNESS: PT MENTIONS THAT SHE HAS LOST NEARLY 22 LBS IN 3 MONTHS. 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 SHE HAS LOST 22 LBS IN THE LAST 3 MONTHS RISK FACTORS: UTI ACUTE RENAL FAILURE DECREASED APPETITE FOR 3 MONTHS 20 LB WEIGHT LOSS IN 3 MONTHS TREATMENT: NUTRITION ASSESSMENT NUTRITION SUPPLEMENT (SUPLENA BID, 01/29 - PRESENT) Moderate Malnutrition (in acute illness) Energy Intake: <75% of estimated energy requirement for > 7 days Weight Loss: 1-2%/1 week; 5%/ 1 month; 7.5%/3 months Other: mild body fat loss; mild muscle mass loss; mild fluid accumulation; Severe Malnutrition (in acute illness) Energy Intake: < 50% of estimated energy requirement for > 5 days Weight Loss: >1-2%/1 week; >5%/1 month; >7.5%/3 months Other: moderate body fat loss; moderate muscle mass loss; moderate- severe fluid accumulation; measurably reduced lead java developer architect strength Moderate Malnutrition (in chronic illness) Energy Intake: <75% of estimated energy requirement for >1 month Weight Loss: 5%/1 month; 7.5%/3 months; 10%/6 months; 20%/1 year Other: mild body fat loss; mild muscle mass loss; mild fluid accumulation Severe Malnutrition (in chronic illness) Energy Intake: <75% of estimated energy requirement for >1 month Weight Loss: >5%/1 month; >7.5%/3 months; >10%/6 months; >20%/1 year Other: severe body fat loss; severe muscle mass loss; severe fluid accumulation; measurably reduced lead java developer architect strength THANK YOU! Roslyn (This form is maintained as a part of the permanent medical record) 2014 [employer]. All Rights Reserved Roslyn Franklin RN, BSN [email or web address] Office: [phone] [facility]ITAL[facility]atsy
[2018-02-01] MEDS: K-Phos Neutral 250 MG TAB PO SCH ×2 (12:01→16:00)
[2018-02-01] MEDS: Dextrose 5% in Water 1,000 ML IV SCH (12:01)
[2018-02-01 16:44] LABS: Hemoglobin 9.2 g/dL (12.0-16.0)
[2018-02-01] MEDS: Estrogens, Conjugated 30 GM TUBE VAG SCH (20:43)
--- NOTE | 2018-02-01 22:02 | PDOC.PN ---
- Subjective Encounter Start Date: 02/01/18 Encounter Start Time: 09:00 Patient seen and examined for FRANTZ. No new complaints. No overnight events - Objective Resuscitation Status: Resuscitation Status DNR:Do Not Resuscitate MAR Reviewed: Yes Vital Signs & Weight: Vital Signs (12 hours) Temp Pulse Resp BP Pulse Ox 02/01/18 17:00 97.6 F 74 18 145/70 H 97 02/01/18 11:31 97.9 F 77 18 136/65 97 Weight Admit Weight 127 lb 12.8 oz Weight 134 lb 9.6 oz I&O: 01/31/18 02/01/18 02/02/18 06:59 06:59 06:59 Intake Total 1920 3025 2160 Output Total 1050 2250 750 Balance 412 934 2373 Result Diagrams: 02/08/18 04:25 02/08/18 04:25 EKG Reviewed by me: Yes (Tele paced) Phys Exam - Physical Examination Constitutional: NAD Respiratory: no wheezing, no rhonchi Cardiovascular: RRR, no rub Gastrointestinal: soft, non-tender, positive bowel sounds Musculoskeletal: no edema Neurological: moves all 4 limbs Dx/Plan (1) ARF (acute renal failure) Status: Acute Comment: improving with IVF (2) Metabolic acidosis Code(s): E87.2 - ACIDOSIS Status: Acute Comment: improving. on Sodium bicarb PO (3) Atrophic vaginitis Code(s): N95.2 - POSTMENOPAUSAL ATROPHIC VAGINITIS Status: Acute Comment: on Estrogen (4) Bladder wall thickening Code(s): N32.89 - OTHER SPECIFIED DISORDERS OF BLADDER Status: Acute Comment : s/p biopsy - No malignancy (5) UTI (urinary tract infection) Status: Acute Qualifiers: Urinary tract infection type: acute cystitis Comment: on Atbx (6) Weight loss, abnormal Code(s): R63.4 - ABNORMAL WEIGHT LOSS Status: Acute Comment: Moderate protein calorie malnutrition (7) Hematuria, gross Status: Acute Comment: improving (8) HTN (hypertension) Code(s): I10 - ESSENTIAL (PRIMARY) HYPERTENSION Status: Chronic Comment: on Amlodipine (9) Electrolyte abnormality Code(s): E87.8 - OTH DISORDERS OF ELECTROLYTE AND FLUID BALANCE, NEC Status: Acute Comment: Hypokalemia/Hypophosphatemia/Hyponatremia/Hypomagnesemia - Plan continue antibiotics Cont current meds as below -: AM labs Review of Systems - Review of Systems Respiratory: negative: Cough, Dry, Shortness of Breath, Hemoptysis, SOB with Excertion, Pleuritic Pain, Sputum, Wheezing Cardiovascular: negative: chest pain, palpitations, orthopnea, paroxysmal nocturnal dyspnea, edema, light headedness, other - Medications/Allergies Allergies/Adverse Reactions: Allergies Allergy/AdvReac Type Severity Reaction Status Date / Time bacitracin Allergy Unknown Verified 03/24/13 03:53 [From Neosporin ([id number]-[id number])] bacitracin zinc Allergy Unknown Verified 03/24/13 03:53 [From Neosporin ([id number]-[id number])] neomycin sulfate Allergy Unknown Verified 03/24/13 03:53 [From Neosporin (ysy-lez-fuuxy)] Penicillins Allergy Unknown Verified 03/24/13 03:53 polymyxin B Allergy Unknown Verified 03/24/13 03:53 [From Neosporin ([id number]-zop-tezik)] polymyxin B sulfate Allergy Unknown Verified 03/24/13 03:53 [From Polysporin] Medications: Current Medications Acetaminophen (Tylenol) 650 mg PO Q4H PRN PRN Reason: Headache/Fever or Pain Last Admin: 02/01/18 00:36 Dose: 650 mg Amlodipine Besylate (Norvasc) 2.5 mg PO DAILY [facility] Docusate Sodium (Colace) 100 mg PO BID [facility] Last Admin: 02/01/18 20:43 Dose: 100 mg Estrogens Conjugated (Premarin Cream) 1.5 gm VAG HS [facility] Last Admin: 02/01/18 20:43 Dose: 1.5 gm Famotidine (Pepcid) 20 mg PO DAILY [facility] Last Admin: 02/01/18 08:48 Dose: 20 mg Guaifenesin/Dextromethorphan (Robitussin Dm) 15 ml PO Q4H PRN PRN Reason: Cough Aztreonam 0.5 gm/ Sodium (Chloride) 100 mls @ 100 mls/hr IVPB Q12HR [facility] Last Admin: 02/01/18 20:43 Dose: 100 mls Dextrose/Water (D5w) 1,000 mls @ 75 mls/hr IV .[id number] [facility] Last Admin: 02/01/18 12:01 Dose: 1,000 mls Miscellaneous Medication (Pharmacy To Dose) 1 each IVPB DAILYPRN PRN PRN Reason: LABS Phosphorus (Kphos Neutral) 250 mg PO TID-[facility] Last Admin: 02/01/18 16:00 Dose: 250 mg Saccharomyces Boulardii (Florastor) 250 mg PO DAILY [facility] Sodium Bicarbonate (Bicarbonate, Sodium) 650 mg PO TID [facility] Last Admin: 02/01/18 20:42 Dose: 650 mg Sodium Chloride (Flush - Normal Saline) 10 ml IVF Q12HR [facility] Last Admin: 02/01/18 20:44 Dose: 10 ml Sodium Chloride (Flush - Normal Saline) 10 ml IVF PRN PRN PRN Reason: Saline Flush Last Admin: 01/29/18 21:32 Dose: 10 ml Tramadol HCl (Ultram) 50 mg PO Q6H PRN PRN Reason: Pain 4-6 Zolpidem Tartrate (Ambien) 5 mg PO HSPRN PRN PRN Reason: Insomnia
--- NOTE | 2018-02-01 23:35 | PDOC.PN ---
- Subjective Encounter Start Date: 02/01/18 Encounter Start Time: 12:30 Patient seen and examined for FRANTZ. No new complaints. No overnight events - Objective Resuscitation Status: Resuscitation Status DNR:Do Not Resuscitate MAR Reviewed: Yes Vital Signs & Weight: Vital Signs (12 hours) Temp Pulse Resp BP Pulse Ox 02/01/18 20:00 97.6 F 69 18 138/54 L 97 02/01/18 17:00 97.6 F 74 18 145/70 H 97 Weight Admit Weight 127 lb 12.8 oz Weight 134 lb 9.6 oz I&O: 01/31/18 02/01/18 02/02/18 06:59 06:59 06:59 Intake Total 1920 3025 2160 Output Total 1050 2250 750 Balance 890 550 3470 Result Diagrams: 02/02/18 04:35 02/02/18 04:35 Phys Exam - Physical Examination Constitutional: NAD Respiratory: no wheezing, no rhonchi Cardiovascular: RRR, no rub Gastrointestinal: soft, positive bowel sounds Musculoskeletal: no edema Neurological: moves all 4 limbs Dx/Plan (1) ARF (acute renal failure) Status: Acute Comment: improving with IVF (2) Metabolic acidosis Code(s): E87.2 - ACIDOSIS Status: Acute Comment: improving. on Sodium bicarb PO (3) Atrophic vaginitis Code(s): N95.2 - POSTMENOPAUSAL ATROPHIC VAGINITIS Status: Acute Comment: on Estrogen (4) Bladder wall thickening Code(s): N32.89 - OTHER SPECIFIED DISORDERS OF BLADDER Status: Acute Comment : s/p biopsy (5) UTI (urinary tract infection) Status: Acute Qualifiers: Urinary tract infection type: acute cystitis Comment: on Atbx (6) Weight loss, abnormal Code(s): R63.4 - ABNORMAL WEIGHT LOSS Status: Acute Comment: Moderate protein calorie malnutrition (7) Hematuria, gross Status: Acute (8) HTN (hypertension) Code(s): I10 - ESSENTIAL (PRIMARY) HYPERTENSION Status: Chronic Comment: on Amlodipine (9) Electrolyte abnormality Code(s): E87.8 - OTH DISORDERS OF ELECTROLYTE AND FLUID BALANCE, NEC Status: Acute Comment: Hypokalemia/Hypophosphatemia (10) Acute blood loss anemia Code(s): D62 - ACUTE POSTHEMORRHAGIC ANEMIA Status: Acute - Plan PT/OT, DVT proph w/SCDs Replace electrolytes -: Monitor HH -: AM labs -: Change IVF to D5W -: Cont to monitor Review of Systems - Review of Systems Respiratory: negative: Cough, Dry, Shortness of Breath, Hemoptysis, SOB with Excertion, Pleuritic Pain, Sputum, Wheezing Cardiovascular: negative: chest pain, palpitations, orthopnea, paroxysmal nocturnal dyspnea, edema, light headedness, other - Medications/Allergies Allergies/Adverse Reactions: Allergies Allergy/AdvReac Type Severity Reaction Status Date / Time bacitracin Allergy Unknown Verified 03/24/13 03:53 [From Neosporin ([id number]-ddp-tbott)] bacitracin zinc Allergy Unknown Verified 03/24/13 03:53 [From Neosporin ([id number]-nke-[id number])] neomycin sulfate Allergy Unknown Verified 03/24/13 03:53 [From Neosporin ([id number]-beg-lvlvj)] Penicillins Allergy Unknown Verified 03/24/13 03:53 polymyxin B Allergy Unknown Verified 03/24/13 03:53 [From Neosporin ([id number]-lrm-qsauz)] polymyxin B sulfate Allergy Unknown Verified 03/24/13 03:53 [From Polysporin] Medications: Current Medications Acetaminophen (Tylenol) 650 mg PO Q4H PRN PRN Reason: Headache/Fever or Pain Last Admin: 02/01/18 00:36 Dose: 650 mg Amlodipine Besylate (Norvasc) 2.5 mg PO DAILY [facility] Docusate Sodium (Colace) 100 mg PO BID [facility] Last Admin: 02/01/18 20:43 Dose: 100 mg Estrogens Conjugated (Premarin Cream) 1.5 gm VAG HS [facility] Last Admin: 02/01/18 20:43 Dose: 1.5 gm Famotidine (Pepcid) 20 mg PO DAILY [facility] Last Admin: 02/01/18 08:48 Dose: 20 mg Guaifenesin/Dextromethorphan (Robitussin Dm) 15 ml PO Q4H PRN PRN Reason: Cough Aztreonam 0.5 gm/ Sodium (Chloride) 100 mls @ 100 mls/hr IVPB Q12HR [facility] Last Admin: 02/01/18 20:43 Dose: 100 mls Dextrose/Water (D5w) 1,000 mls @ 75 mls/hr IV .[id number] [facility] Last Admin: 02/01/18 12:01 Dose: 1,000 mls Miscellaneous Medication (Pharmacy To Dose) 1 each IVPB DAILYPRN PRN PRN Reason: LABS Phosphorus (Kphos Neutral) 250 mg PO TID-[facility] Last Admin: 02/01/18 16:00 Dose: 250 mg Saccharomyces Boulardii (Florastor) 250 mg PO DAILY [facility] Sodium Bicarbonate (Bicarbonate, Sodium) 650 mg PO TID [facility] Last Admin: 02/01/18 20:42 Dose: 650 mg Sodium Chloride (Flush - Normal Saline) 10 ml IVF Q12HR [facility] Last Admin: 02/01/18 20:44 Dose: 10 ml Sodium Chloride (Flush - Normal Saline) 10 ml IVF PRN PRN PRN Reason: Saline Flush Last Admin: 01/29/18 21:32 Dose: 10 ml Tramadol HCl (Ultram) 50 mg PO Q6H PRN PRN Reason: Pain 4-6 Zolpidem Tartrate (Ambien) 5 mg PO HSPRN PRN PRN Reason: Insomnia
[2018-02-02] MEDS: Dextrose 5% in Water 1,000 ML IV SCH (02:32)
--- NOTE | 2018-02-02 03:58 | CON ---
DATE OF CONSULTATION: 02/01/2018 INITIAL REASON FOR CONSULTATION: 1. History of gross hematuria. 2. Posterior bladder wall mass. 3. Acute renal failure. PROBLEM LIST: 1. Gross hematuria, R31.0 2. Urinary retention, R33.9 3. Abnormal urinary tract, radiological, R93.49 4. Cystitis, N30.90 5. Abnormal weight loss, R63.4 6. Acute renal insufficiency, N28.9 7. 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 Karin Saha is a pleasant 87-year-old white female known to me for hematuria after a fall at home and number of fractured ribs. The patient also had radiologic imaging demonstrating possible posterior bladder wall mass or layering of debris. Patient did undergo cystoscopic assessment on 01/28/2018. Please see my operative notes for specific details. Since I last saw Ms. Saha, she was evaluated by my colleague, Dr. Carlos Castle with respective gross hematuria that developed after use of Lovenox. The patient does have a degree of uremia, platelet dysfunction, and a recent biopsy that would be possible causes of this, in addition to her presenting complaint of gross hematuria after a fall. The patient has not undergone any contrast imaging of her kidneys due to the renal dysfunction and has not undergone retrograde evaluation due to the fact that she had concurrent urinary tract infection, likely secondary to E. coli. The patient has been treated with appropriate antibiotics for that. She did have a bladder biopsy that remains pending as far as pathology. We believe that she has simply inflammatory changes to her bladder wall secondary to chronic bladder infection. The patient does remain on Estrace cream for her postmenopausal atrophic vaginitis and urethral narrowing. She did have a urethral stricture dilated on 01/28/2018 as well. PHYSICAL EXAMINATION: VITAL SIGNS: Patient is afebrile with temperature of 97.6, pulse 74, respirations 18, O2 saturation 97% on room air, blood pressure is 145/70. GENERAL: This is a pleasant, awake, alert, white female in no apparent distress. She does appear to be more aware of her surroundings and when I first met her, suggesting some degree of an illness from her bladder infection. General hydration may also be helping. The patient's renal function seems to be improving to a degree as well as documented by laboratories. The patient today is able to communicate without any difficulties. HEAD, EARS, EYES, NOSE, AND THROAT: Extraocular movements are intact. Sclerae are anicteric. Oropharynx is clear. NECK: Supple. LUNGS: Clear to auscultation bilaterally. CARDIAC: Regular rate and rhythm without murmur, rub, or gallop. ABDOMEN: Soft and nontender. There is no suprapubic tenderness today. Abdomen exam finds one small bruised area, which the patient states was an injection in her abdomen to prevent blood clots. GENITOURINARY: Daniels catheter is in place. There is gross hematuria present, but this easily and irrigates to clear, a few small clots were cleared by hand irrigation. EXTREMITIES: Appear within normal limits. BACK: No costovertebral angle tenderness, no point tenderness along the course of the spine. NEUROLOGIC: Formal neurologic examination was not performed. The patient does have the ability to move all 4 extremities against gravity. LABORATORY STUDIES: The patient's hemoglobin is 9.2 with a current hematocrit of 26.7, indicating a degree of hemoconcentration. Serum chemistries show current blood urea nitrogen of 48 with a creatinine of 2.15 with a BUN to creatinine ratio of 22, suggesting a degree of dehydration as well. Microbiology: The patient's original urine culture obtained on 01/26/2018, grew E. coli greater than 100,000, CFUs per mL and this was pansensitive except to ampicillin. Urine obtained for culture on 01/27/2018, grew gram-negative rods. ASSESSMENT AND PLAN: 1. Urinary tract infection. The patient can be appropriately treated on essentially many different available oral antibiotics. She does not need to be continued long-term on IV antibiotics based on the presentation. 2. Gross hematuria. This is likely secondary to a combination of either the patient's fall, which was the prompting presentation of gross hematuria or due to her bladder biopsy in combination with the Lovenox shot and a degree of platelet dysfunction. She has relatively low platelet count and has had uremia for number of days. Based on that presentation, the patient's bleeding is not wholly unexpected. I would recommend no use of anticoagulants as the patient is essentially auto anticoagulated. There are concerns, EMETERIO hose and sequential compression devices would be a suitable alternative. 3. Pathology. This remains pending at the present time. The patient does not need to remain hospitalized until the pathology report is available. 4. Acute renal failure. Patient is being followed by Dr. Guadarrama at the present time, the patient appears to be improving, although over the last 24 hours or so , she probably has not been taking enough p.o. fluids and this may be a longer- term issue for the patient. We did discuss with the patient's daughter that there is a risk when patient is no longer taking in food, which seems to be an issue for her and not wanting to drink that a degree of Alzheimer disease or dementia may be present. Ms. Saha does seem to be embarrassed and she is more aware of her surroundings today than she was at admission. 5. Low estrogen status. Patient should continue on Estrace cream applied to the periurethral area on a nightly basis. Over 35 minutes of subsequent evaluation and assessment time was spent in evaluation and assessment of this patient, over of which was in face to face evaluation, or in coordination of care, or communication with the patient's family regarding her care, exclusive of any procedures performed, [id number]. [facility]
[2018-02-02 05:16] LABS: Anion Gap 8 mmol/L (10-20); BUN (Urea Nitrogen) 43 mg/dL (9.8-20.1); Calc. Creatinine Clearance 23 mL/min (70-130); Calcium 7.2 mg/dL (7.8-10.44); Carbon Dioxide 17 mmol/L (23-31); Chloride 107 mmol/L (98-107); Estimated GFR-MDRD 29; Glucose 104 mg/dL (83-110); Iron 98 ug/dL (50-170); Iron Binding Capacity, Total 136 mcg/dL (265-497); Potassium 3.5 mmol/L (3.5-5.1); Sodium 128 mmol/L (136-145)
[2018-02-02 05:18] LABS: #Eosinphils 0.1 thou/uL (0.0-0.7); #Lymphocytes 1.5 thou/uL (1.20-3.40); #Monocytes 0.5 thou/uL (0.11-0.59); #Neutrophils 3.7 thou/uL (1.40-6.50); %Basophils 0.4 % (0.0-1.0); %Eosinophils 1.2 % (0.0-10.0); %Lymphocytes 26.2 % (21.0-51.0); %Monocytes 8.3 % (0.0-10.0); Hemoglobin 7.9 g/dL (12.0-16.0); Mean Corpuscular HGB CONC 34.7 g/dL (32.0-36.0); Mean Corpuscular Hemoglobin 34.1 pg (27.0-31.0); Mean Corpuscular Volume 98.2 fl (81.0-99.0); Mean Platelet Volume 7.4 fL (7.4-10.4); Platelet Count 98 thou/uL (130-400); RBC Distribution Width 13.2 % (11.5-14.5); Red Blood Cell (RBC) Count 2.31 mill/uL (4.20-5.40); White Blood Cell (WBC) Count 5.7 thou/uL (4.8-10.8)
[2018-02-02 05:23] LABS: Phosphorus 1.9 mg/dL (2.3-4.7)
[2018-02-02] MEDS: Sodium Bicarbonate Tab 325 MG TAB PO SCH ×3 (08:55→22:05)
[2018-02-02] MEDS: Amlodipine 5 MG TAB PO SCH (08:55)
[2018-02-02] MEDS: Famotidine 20 MG TAB PO SCH (08:55)
[2018-02-02] MEDS: Docusate 100 MG CAP PO SCH ×2 (08:55→22:02)
[2018-02-02] MEDS: Saccharomyces boulardii 250 MG CAP PO SCH (08:55)
[2018-02-02] MEDS: K-Phos Neutral 250 MG TAB PO SCH ×3 (08:56→16:47)
[2018-02-02] MEDS: Sodium Chloride 0.9% 1,000 ML IV SCH (08:57)
--- NOTE | 2018-02-02 09:46 | PRG ---
DATE OF SERVICE: 02/02/2018 SUBJECTIVE: Ms. Saha is an 87-year-old white female who was seen for an acute kidney injury that w as hemodynamically mediated renal dysfunction. She received continuous IV infusion with normal salin e. We also encouraged her to increase her p.o. intake. Renal function is now much improved with the conservative management. No other complaints today, no chest pain or shortness of breath. OBJECTIVE: VITAL SIGNS: Blood pressure 125/56, heart rate 68, respiratory rate 18, temperature 97.8, pulse ox 9 6%. GENERAL: Noted to be awake, alert, comfortable, not in distress. SKIN: Adequate turgor. HEENT: She has slightly pale conjunctivae, anicteric sclerae. NECK: No neck mass, no carotid bruits, no JVD. CHEST: No deformities. LUNGS: Clear breath sounds, no wheezing, no crackles. HEART: Normal sinus rhythm. No murmur, no gallops, no rubs. ABDOMEN: Globular, soft, nontender. EXTREMITIES: No edema, no deformities. LABORATORY: 02/02/2018 - Reviewed. LABORATORY DATA: 02/02/2018 - White count 5.7, hemoglobin 7.9. Sodium 128, potassium 3.5, chloride 107, carbon dioxide 17, BUN 43, creatinine 1.66, phosphorus is 1.9, calcium 7.2, TIBC 136, albumin 2. 6. ASSESSMENT AND PLAN: 1. Acute kidney injury - hemodynamically mediated renal dysfunction. Much improved with IV hydratio n. No indication for any dialytic intervention. 2. Anemia p.r.n. blood transfusion. 3. Hyperphosphatemia. Continue on K-phos. 4. Please note creatinine is much improved at 1.66. Please note at one time her creatinine was note d at 4.45. 5. Metabolic acidosis. Continue sodium bicarbonate 650 mg tab t.i.d.
[2018-02-02 16:17] LABS: Hemoglobin 8.7 g/dL (12.0-16.0)
[2018-02-02 16:37] LABS: Anion Gap 11 mmol/L (10-20); BUN (Urea Nitrogen) 43 mg/dL (9.8-20.1); Calc. Creatinine Clearance 24 mL/min (70-130); Calcium 7.3 mg/dL (7.8-10.44); Carbon Dioxide 16 mmol/L (23-31); Chloride 103 mmol/L (98-107); Estimated GFR-MDRD 30; Glucose 107 mg/dL (83-110); Potassium 3.5 mmol/L (3.5-5.1); Sodium 126 mmol/L (136-145)
[2018-02-02] MEDS: Estrogens, Conjugated 30 GM TUBE VAG SCH (22:05)
[2018-02-02] MEDS: Nitrofurantoin Monohyd/M-Cryst 100 MG CAP PO SCH (22:05)
--- NOTE | 2018-02-02 23:15 | PDOC.PN ---
- Subjective Encounter Start Date: 02/02/18 Encounter Start Time: 12:00 Patient seen and examined for FRANTZ/UTI/Gen weakness. Gross hematuria imroving. No new complaints. No overnight events - Objective Resuscitation Status: Resuscitation Status DNR:Do Not Resuscitate MAR Reviewed: Yes Vital Signs & Weight: Vital Signs (12 hours) Temp Pulse Resp BP BP Pulse Ox 02/02/18 20:00 98.5 F 75 18 127/76 96 02/02/18 16:00 98.2 F 77 16 117/62 97 02/02/18 11:31 98.0 F 79 18 115/54 L 97 Weight Admit Weight 127 lb 12.8 oz Weight 134 lb 9.6 oz I&O: 02/01/18 02/02/18 02/03/18 06:59 06:59 06:59 Intake Total 3025 3235 1504 Output Total 2250 1600 850 Balance 775 1635 654 Result Diagrams: 02/02/18 16:07 02/03/18 03:53 Phys Exam - Physical Examination Constitutional: NAD Daniels + Respiratory: no wheezing, no rhonchi Cardiovascular: RRR, no rub Gastrointestinal: soft, non-tender, positive bowel sounds Musculoskeletal: no edema Neurological: moves all 4 limbs Psychiatric: A&O x 3 Dx/Plan (1) ARF (acute renal failure) Status: Acute Comment: improving with IVF (2) Metabolic acidosis Code(s): E87.2 - ACIDOSIS Status: Acute Comment: improving. on Sodium bicarb PO (3) Atrophic vaginitis Code(s): N95.2 - POSTMENOPAUSAL ATROPHIC VAGINITIS Status: Acute Comment: on Estrogen (4) Bladder wall thickening Code(s): N32.89 - OTHER SPECIFIED DISORDERS OF BLADDER Status: Acute Comment : s/p biopsy (5) UTI (urinary tract infection) Status: Acute Qualifiers: Urinary tract infection type: acute cystitis Comment: on Atbx (6) Weight loss, abnormal Code(s): R63.4 - ABNORMAL WEIGHT LOSS Status: Acute Comment: Moderate protein calorie malnutrition (7) Hematuria, gross Status: Acute (8) HTN (hypertension) Code(s): I10 - ESSENTIAL (PRIMARY) HYPERTENSION Status: Chronic Comment: on Amlodipine (9) Electrolyte abnormality Code(s): E87.8 - OTH DISORDERS OF ELECTROLYTE AND FLUID BALANCE, NEC Status: Acute Comment: Hypokalemia/Hypophosphatemia/Hyponatremia (10) Acute blood loss anemia Code(s): D62 - ACUTE POSTHEMORRHAGIC ANEMIA Status: Acute - Plan continue antibiotics, PT/OT, out of bed/ambulate, DVT proph w/SCDs Cont NS at 50 ml/hr -: AM labs -: Cont current meds as below -: DC planning to Home with HHC per patient req Review of Systems - Review of Systems Respiratory: negative: Cough, Dry, Shortness of Breath, Hemoptysis, SOB with Excertion, Pleuritic Pain, Sputum, Wheezing Cardiovascular: negative: chest pain, palpitations, orthopnea, paroxysmal nocturnal dyspnea, edema, light headedness, other Gastrointestinal: negative: Nausea, Vomiting, Abdominal Pain, Diarrhea, Constipation, Melena, Hematochezia, Other - Medications/Allergies Allergies/Adverse Reactions: Allergies Allergy/AdvReac Type Severity Reaction Status Date / Time bacitracin Allergy Unknown Verified 03/24/13 03:53 [From Neosporin ([id number])] bacitracin zinc Allergy Unknown Verified 03/24/13 03:53 [From Neosporin ([id number])] neomycin sulfate Allergy Unknown Verified 03/24/13 03:53 [From Neosporin ([id number])] Penicillins Allergy Unknown Verified 03/24/13 03:53 polymyxin B Allergy Unknown Verified 03/24/13 03:53 [From Neosporin ([id number])] polymyxin B sulfate Allergy Unknown Verified 03/24/13 03:53 [From Polysporin] Medications: Current Medications Acetaminophen (Tylenol) 650 mg PO Q4H PRN PRN Reason: Headache/Fever or Pain Last Admin: 02/01/18 00:36 Dose: 650 mg Amlodipine Besylate (Norvasc) 2.5 mg PO DAILY [facility] Last Admin: 02/02/18 08:55 Dose: 2.5 mg Docusate Sodium (Colace) 100 mg PO BID [facility] Last Admin: 02/02/18 22:02 Dose: Not Given Estrogens Conjugated (Premarin Cream) 1.5 gm VAG HS [facility] Last Admin: 02/02/18 22:05 Dose: 1.5 gm Famotidine (Pepcid) 20 mg PO DAILY [facility] Last Admin: 02/02/18 08:55 Dose: 20 mg Guaifenesin/Dextromethorphan (Robitussin Dm) 15 ml PO Q4H PRN PRN Reason: Cough Sodium Chloride (Normal Saline 0.9%) 1,000 mls @ 50 mls/hr IV .Q20H [facility] Last Admin: 02/02/18 08:57 Dose: 1,000 mls Miscellaneous Medication (Pharmacy To Dose) 1 each IVPB DAILYPRN PRN PRN Reason: LABS Nitrofurantoin Macrocrystals (Macrobid) 100 mg PO BID [facility] Last Admin: 02/02/18 22:05 Dose: 100 mg Phosphorus (Kphos Neutral) 500 mg PO TID[facility] Last Admin: 02/02/18 16:47 Dose: 500 mg Saccharomyces Boulardii (Florastor) 250 mg PO DAILY [facility] Last Admin: 02/02/18 08:55 Dose: 250 mg Sodium Bicarbonate (Bicarbonate, Sodium) 650 mg PO TID [facility] Last Admin: 02/02/18 22:05 Dose: 650 mg Sodium Chloride (Flush - Normal Saline) 10 ml IVF Q12HR [facility] Last Admin: 02/02/18 22:05 Dose: Not Given Sodium Chloride (Flush - Normal Saline) 10 ml IVF PRN PRN PRN Reason: Saline Flush Last Admin: 01/29/18 21:32 Dose: 10 ml Tramadol HCl (Ultram) 50 mg PO Q6H PRN PRN Reason: Pain 4-6 Zolpidem Tartrate (Ambien) 5 mg PO HSPRN PRN PRN Reason: Insomnia
--- NOTE | 2018-02-03 02:22 | CON ---
DATE OF CONSULTATION: 02/02/2018 INITIAL REASON FOR CONSULTATION: 1. History of gross hematuria. 2. Concerns for posterior bladder wall mass. 3. Acute renal failure. PROBLEM LIST: 1. Gross hematuria, R31.0 2. Urinary retention, R33.9 3. Abnormal urinary tract, radiological, R93.49 4. Cystitis, N30.90 5. Abnormal weight loss, R63.4 6. Acute renal insufficiency, N28.9 7. 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 Karin Saha is a pleasant 87-year -old white female, known to me for history of hematuria after a fall at home and a number of fractured ribs. The patient had radiologic imaging, ultrasound and CT demonstrating possible posterior bladder wall mass or layering of debris. She underwent a cystoscopic assessment on 01/28/2018. Please see my operative notes for specific details. We did perform a bladder biopsy due to some inflammatory changes in her bladder wall. interval events since I last saw Ms. Saha last night, she has continued to have a small amount of hematuria and few clots passing her catheter. She has not been on continuous bladder irrigation, simply had a Daniels catheter in place. Hand irrigation was then performed as necessary. Today, the patient has much-reduced amounts of hematuria and we have decided to perform a voiding trial on her tonight. Patient's urine culture did return earlier in the week with evidence of E. coli which was pansensitive and the patient did have a specimen which grew gram negative rods suggestive of the same type of organism. The Escherichia coli is pansensitive to all tested antibiotics. The patient does have a number of allergies and/or suggesting conversion from aztreonam, which is relatively expensive to a more inexpensive orally usable medication Macrobid tonight. The patient's bladder biopsy results became available today and these do not show any evidence of any type of cancer or precancer. The patient's pathology report from 01/29/2018, shows cystitis cystica and cystitis glandularis, marked inflammation with focal reactive epithelial atypia, but no evidence of dysplasia or malignancy. Multiple levels of the bladder wall works evaluated before that assessment. PHYSICAL EXAMINATION: GENERAL: This is a pleasant, elderly white female in no apparent distress. She is a reasonable historian. VITAL SIGNS: The patient has been afebrile. Has current temperature of 98.5, pulse 75, respirations 18, O2 saturation on room air is 96%, blood pressure is 127/76. HEAD, EYES, EARS, NOSE, AND THROAT: Extraocular movements are intact. Sclerae are anicteric. Oropharynx is clear. NECK: Supple. LUNGS: Clear to auscultation bilaterally. CARDIAC: Regular rate and rhythm without murmur, rub, or gallop. ABDOMEN: Soft and nontender. Bowel sounds are heard on auscultation. BACK: There is no point tenderness in the patient's bladder. GENITOURINARY: Indwelling Daniels catheter is in place and this was hand irrigated until clear using sterile water. The patient did have a few clots which appeared to be dependent, which were easily irrigated free. The patient has recently been on Lovenox as an anticoagulant. This probably contributed to the patient's hematuria as well as the patient's recent history of fall and hematuria after that as well as recent urethral dilation as potential contributor as well. The patient did have bladder biopsies performed x2 and these relatively small, but were fulgurated. We irrigated the patient's bladder by hand to clear and discontinued the Daniels catheter. Extremities appear within normal limits. LABORATORY STUDIES: The patient's blood urea nitrogen shows any improvement to 43 with a current creatinine of 1.62, which is the lowest, it has been on her hospitalization. Electrolytes appeared essentially within normal limits with a current potassium of 3.5, sodium level is a little low at 126. Serum calcium 7.3, but this is not in the INR's measurement and she is a little on the hypoalbuminemic side with a current albumin of 2.6, which probably affects her serum calcium level to a degree. ASSESSMENT: 1. Concerns for posterior bladder wall mass. This does not appear to be due to a malignancy, but instead due to inflammatory changes associated with chronic infection. 2. Chronic infection management. The patient was relatively dehydrated, had relatively low urine output associated with acute renal insufficiency and this probably contributed to development of her urine infection. If the patient's bladder fills infrequently and she makes low amounts of urine, she is more prone to having a urinary tract infection. This is due to stagnant time in the bladder. Adequate hydration is retana in this patient. 3. Ascending infection risks. Patient has been started on Premarin cream applied to the anterior vaginal wall nightly and should continue indefinitely. The patient may follow up in my office regarding further prescriptions for that after she is discharged, she should be discharged with a current tube being utilized for her topical Estrace application. The patient should be self instructed with an application of the cream to the anterior vaginal wall at the opening where the urethra is present. 4. Urinary tract infection due to Escherichia coli pansensitive type not a hospital organism. The patient's UTIs can be easily treated with a number of oral agents and I recommend the use of Macrobid based on her antibiotic allergy history. She will start on that tonight, so she may be observed on that medication overnight. 5. Antibiotic management. I would recommend discontinuation of the aztreonam and other antibiotics except Macrobid for now. We are going to treat her as if she has a complicated urinary tract infection and should receive at least a 2- week course of antibiotic therapy. 6. Urethral stricture disease. The patient did undergo urethral dilation earlier in this hospitalization. She may have this is an ongoing issue and should follow up in the clinic regarding this. 7. Loss of desire to eat and drink. These are early symptoms of dementia and may well be present in this patient. I did caution the patient's daughter to not be overly optimistic, even though the patient is looking significantly better today. This may be on long-term and ongoing issue and is a manifestation of dementia in its middle phases. Over 35 minutes of subsequent evaluation and assessment time was spent in evaluation and assessment of this patient, over of which was in face to face evaluation, or in coordination of care, or communication with the patient's family regarding her care, exclusive of any procedures performed, [id number]. [facility]
[2018-02-03 05:42] LABS: Anion Gap 12 mmol/L (10-20); BUN (Urea Nitrogen) 50 mg/dL (9.8-20.1); Calc. Creatinine Clearance 23 mL/min (70-130); Calcium 7.2 mg/dL (7.8-10.44); Carbon Dioxide 17 mmol/L (23-31); Chloride 105 mmol/L (98-107); Estimated GFR-MDRD 29; Glucose 93 mg/dL (83-110); Magnesium 1.4 mg/dL (1.6-2.6); Phosphorus 3.3 mg/dL (2.3-4.7); Potassium 3.5 mmol/L (3.5-5.1); Sodium 130 mmol/L (136-145)
[2018-02-03] MEDS: Sodium Chloride 0.9% 1,000 ML IV SCH ×2 (05:58→23:39)
[2018-02-03] MEDS ORDERED: Magnesium Sulfate 2 GM in Sodium Chloride 0.9% 100 ML IVPB SCH (08:30)
[2018-02-03] MEDS ORDERED: Magnesium 2 GM/NS 0.9% 100 ML 2 GM in Premix Bag 1 BAG IVPB SCH (08:45)
[2018-02-03] MEDS: Amlodipine 5 MG TAB PO SCH (09:18)
[2018-02-03] MEDS: Famotidine 20 MG TAB PO SCH (09:19)
[2018-02-03] MEDS: Nitrofurantoin Monohyd/M-Cryst 100 MG CAP PO SCH (09:19)
[2018-02-03] MEDS: K-Phos Neutral 250 MG TAB PO SCH ×3 (09:19→17:13)
[2018-02-03] MEDS: Sodium Bicarbonate Tab 325 MG TAB PO SCH ×3 (09:19→22:20)
[2018-02-03] MEDS: Saccharomyces boulardii 250 MG CAP PO SCH (09:19)
[2018-02-03] MEDS: Docusate 100 MG CAP PO SCH ×2 (09:20→22:20)
--- NOTE | 2018-02-03 10:05 | PRG ---
DATE OF SERVICE: 02/03/2018 SERVICE: Renal Medicine. SUBJECTIVE: Ms. Saha is an 87-year-old white female, seen for acute kidney injury. She had a hemo dynamically-mediated renal dysfunction. The renal function has slowly been improving with optimizati on of her hemodynamics. She has received IV hydration. She has also increased p.o. intake. No comp laints today. No chest pain or shortness of breath. OBJECTIVE: VITAL SIGNS: Blood pressure 133/66, heart rate 74, respiratory rate 18, temperature 98, pulse ox 94% . GENERAL EXAM: Awake, alert, comfortable. SKIN: Adequate turgor. HEENT: Pinkish conjunctivae, anicteric sclerae. NECK: No neck mass, no carotid bruits, no JVD. CHEST: No deformities. LUNGS: Clear breath sounds, no wheezing, no crackles. HEART: Normal sinus rhythm. No murmur, no gallops, no rubs. ABDOMEN: Globular, soft, nontender, no masses. EXTREMITIES: No edema, no deformities. Medications of 02/03/2018 reviewed. LABORATORY DATA: Laboratories of 02/02/2018, hemoglobin 8.7. 02/03/2018, sodium 130, potassium 3.5, chloride 105, carbon dioxide 17, BUN 50, creatinine 1.66, phosphorus is 3.3, magnesium 1.4. ASSESSMENT AND PLAN: 1. Urinary tract infection - Urology evaluated this patient. He recommended antibiotics. He starte d the p.o. Macrobid. However, due to her renal dysfunction, we will discontinue Macrobid and change it Cipro 250 b.i.d. 2. Acute kidney injury - hemodynamically-mediated renal dysfunction. Much improved creatinine. Cre atinine is now running at about 1.66. This is most likely her baseline. 3. Anemia - we will continue to observe. Overall, continue supportive care. From a renal point of view, this patient with stable renal functi on can be discharged anytime. We will follow up at the Renal Clinic.
[2018-02-03 12:20] VITALS: BMI 21.0
--- NOTE | 2018-02-03 14:45 | CON ---
DATE OF CONSULTATION: 02/03/2018 INITIAL REASON FOR CONSULTATION: 1. Gross hematuria. 2. Urinary retention. 3. Possible posterior bladder wall mass. 4. Acute renal failure. PROBLEM LIST: 1. Gross hematuria, R31.0 2. Urinary retention, R33.9 3. Abnormal urinary tract, radiological, R93.49 4. Cystitis, N30.90 5. Abnormal weight loss, R63.4 6. Acute renal insufficiency, N28.9 7. 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 Karin Saha is a pleasant 87-year-old white female known to me for history of gross hematuria developing after a fall at home. She had a number of fractured ribs. The patient had radiologic imaging ultrasound and CT demonstrating a possible posterior bladder wall mass or layering of debris. She underwent cystoscopic assessment on 01/28/2018. Please see my operative notes for specific details related to that case. She did have a bladder biopsy performed and this returned with only inflammatory changes, no evidence of cancer. INTERVAL EVENTS: Since I evaluated Ms. Saha last night, she has been on observation after a voiding trial. She had a few clots that were completely cleared from her bladder yesterday. She has not had gross hematuria since yesterday. She did have a number of combined stool and urine voids overnight due to concurrent diarrhea from bowel softening agents. The patient has settled down quite a bit today. She did have a number of postvoid bladder scans , it is unclear if these were immediate postvoid or not, but these all showed residual volumes of in excess of 250 mL indicating the patient still has a degree of urinary retention despite urethral dilation. Overall, she is doing well today and is awake and alert. PHYSICAL EXAMINATION: GENERAL: This is a pleasant, elderly, frail white female in no apparent distress. She is a reasonable historian and is communicative today. VITAL SIGNS: The patient has been afebrile with a current temperature of 97.9, pulse 73, respirations 16, O2 saturation on room air is 94%, blood pressure is 128/61. HEENT: Extraocular movements are intact. Sclerae are anicteric. Oropharynx is clear. NECK: Supple. LUNGS: Clear to auscultation bilaterally. CARDIAC: Regular rate and rhythm. ABDOMEN: Soft and nontender. Bowel sounds are heard on auscultation. BLADDER/GENITOURINARY: Catheter has been removed. PELVIC: Formal pelvic examination not repeated on today's rounds. EXTREMITIES: Appear within normal limits. LABORATORY STUDIES: The patient's acute renal failure is substantially resolved. She has a blood urea nitrogen of 50 with a current creatinine 1.66. She is essentially in a stable baseline at this point and has been this way for the last 24 hours. She apparently endured some degree of permanent injury from her acute renal failure episode secondary to dehydration. Estimated glomerular filtration rate is 29 placing her in class 4 acute renal failure. Hematologic profile last obtained yesterday shows a white count of 5700, hemoglobin of 7.9 with hematocrit of 22.6. She is a little hemoconcentrated today with a hematocrit up to 25.1. Evaluation of the patient's differential on 02/[address] back to 01/31 shows no evidence of left shift or systemic process is resolved. The patient's urine culture obtained on 01/26 grew only E. coli which was pansensitive to all tested organisms and she has been on Macrobid for more than 24 hours. ASSESSMENT AND PLAN: 1. Urinary tract infection with posterior bladder wall debris and inflammatory changes to the bladder. The patient is now on Macrobid for management of the UTI and we will continue on that as an outpatient. 2. Gross hematuria, apparently resolved. At this point, patient has not had a formal gross hematuria evaluation due to her poor renal function and concurrent bladder infection. She would be appropriate for subsequent followup cystoscopic assessment. Possibly if her kidney function resolves appropriately , might be appropriate for CT scanning or a renal ultrasound in the future to complete her hematuria evaluation. 3. Urinary retention and incomplete bladder emptying issues. The patient did undergo urethral dilation for urethral stricture secondary to low estrogen status and appears to be retaining more than 250 mL post-void at the present time. I am recommending that the patient started on intermittent catheterization at home. Her daughter is excellent scrap metal burner for her and shows all the signs of being appropriately provisioned for taking care of her mother at home. The patient would need to be on clean intermittent catheterization 5 times per day, likely using 14 or 16 Welsh vinyl catheters preferably as a closed system for a total of 99 months. 4. Low estrogen status. Patient should be discharged home on Premarin vaginal cream to be applied to the anterior urethra and anterior vaginal wall on a nightly basis. This will be a lifelong need. 5. General health issues. The patient had lost her appetite and desired to consume fluids prior to admission. She has remained on IV fluid throughout her hospitalization. I am recommending the patient adequately hydrate herself so that she does not present again in acute renal failure. 6. Acute renal failure. The patient is followed by Dr. Guadarrama of the Nephrology Service and appears to have recovered with appropriate hydration to a new baseline blood urea nitrogen 50, creatinine of 1.66 indicating chronic renal failure stage 4. The patient may transition into stage 3B with further hydration in time. Over 35 minutes of subsequent evaluation and assessment time was spent in evaluation and assessment of this patient, over of which was in face to face evaluation, or in coordination of care, or communication with the patient's family regarding her care, exclusive of any procedures performed, [id number]. MTDD
[2018-02-03] MEDS ORDERED: Sodium Chloride 0.9% 10 ML ONE (14:52)
--- NOTE | 2018-02-03 16:41 | PDOC.PN ---
- Subjective Encounter Start Date: 02/03/18 Encounter Start Time: 12:00 Patient seen and examined for FRANTZ/Gen weakness. No new complaints. No overnight events. Gross hematuria improved. Daniels dced. - Objective Resuscitation Status: Resuscitation Status DNR:Do Not Resuscitate MAR Reviewed: Yes Vital Signs & Weight: Vital Signs (12 hours) Temp Pulse Resp BP BP Pulse Ox 02/03/18 12:00 97.9 F 73 16 128/61 94 L 02/03/18 09:18 74 133/66 02/03/18 08:00 98 F 74 18 133/66 94 L Weight Admit Weight 127 lb 12.8 oz Weight 134 lb 9.6 oz I&O: 02/02/18 02/03/18 02/04/18 06:59 06:59 06:59 Intake Total 3235 1504 Output Total 1600 850 Balance 1635 654 Result Diagrams: 02/02/18 16:07 02/03/18 03:53 Additional Labs: Laboratory Tests 02/03/18 03:53 Magnesium 1.4 L Phys Exam - Physical Examination Constitutional: NAD Respiratory: no wheezing, no rhonchi Cardiovascular: RRR, no rub Gastrointestinal: soft, non-tender, positive bowel sounds Musculoskeletal: no edema Neurological: moves all 4 limbs Psychiatric: A&O x 3 Dx/Plan (1) ARF (acute renal failure) Status: Acute Comment: improving with IVF (2) Metabolic acidosis Code(s): E87.2 - ACIDOSIS Status: Acute Comment: improving. on Sodium bicarb PO (3) Atrophic vaginitis Code(s): N95.2 - POSTMENOPAUSAL ATROPHIC VAGINITIS Status: Acute Comment: on Estrogen (4) Bladder wall thickening Code(s): N32.89 - OTHER SPECIFIED DISORDERS OF BLADDER Status: Acute Comment : s/p biopsy - No malignancy (5) UTI (urinary tract infection) Status: Acute Qualifiers: Urinary tract infection type: acute cystitis Comment: on Atbx (6) Weight loss, abnormal Code(s): R63.4 - ABNORMAL WEIGHT LOSS Status: Acute Comment: Moderate protein calorie malnutrition (7) Hematuria, gross Status: Acute Comment: improving (8) HTN (hypertension) Code(s): I10 - ESSENTIAL (PRIMARY) HYPERTENSION Status: Chronic Comment: on Amlodipine (9) Electrolyte abnormality Code(s): E87.8 - OTH DISORDERS OF ELECTROLYTE AND FLUID BALANCE, NEC Status: Acute Comment: Hypokalemia/Hypophosphatemia/Hyponatremia/Hypomagnesemia (10) Acute blood loss anemia Code(s): D62 - ACUTE POSTHEMORRHAGIC ANEMIA Status: Acute - Plan DVT proph w/SCDs Postvoid residuals per Urology -: AM labs, Replace Magnessium -: Replace Mg -: DC once cleared by Nephrology and Urology -: Cont current meds as below Review of Systems - Review of Systems Respiratory: negative: Cough, Dry, Shortness of Breath, Hemoptysis, SOB with Excertion, Pleuritic Pain, Sputum, Wheezing Cardiovascular: negative: chest pain, palpitations, orthopnea, paroxysmal nocturnal dyspnea, edema, light headedness, other Gastrointestinal: negative: Nausea, Vomiting, Abdominal Pain, Diarrhea, Constipation, Melena, Hematochezia, Other - Medications/Allergies Allergies/Adverse Reactions: Allergies Allergy/AdvReac Type Severity Reaction Status Date / Time bacitracin Allergy Unknown Verified 03/24/13 03:53 [From Neosporin ([id number])] bacitracin zinc Allergy Unknown Verified 03/24/13 03:53 [From Neosporin ([id number])] neomycin sulfate Allergy Unknown Verified 03/24/13 03:53 [From Neosporin ([id number]-bgz-[id number])] Penicillins Allergy Unknown Verified 03/24/13 03:53 polymyxin B Allergy Unknown Verified 03/24/13 03:53 [From Neosporin ([id number]-[id number])] polymyxin B sulfate Allergy Unknown Verified 03/24/13 03:53 [From Polysporin] Medications: Current Medications Acetaminophen (Tylenol) 650 mg PO Q4H PRN PRN Reason: Headache/Fever or Pain Last Admin: 02/01/18 00:36 Dose: 650 mg Amlodipine Besylate (Norvasc) 2.5 mg PO DAILY [facility] Last Admin: 02/03/18 09:18 Dose: 2.5 mg Ciprofloxacin (Cipro) 250 mg PO 0600,1999 [facility] Docusate Sodium (Colace) 100 mg PO BID [facility] Last Admin: 02/03/18 09:20 Dose: Not Given Estrogens Conjugated (Premarin Cream) 1.5 gm VAG HS [facility] Last Admin: 02/02/18 22:05 Dose: 1.5 gm Famotidine (Pepcid) 20 mg PO DAILY [facility] Last Admin: 02/03/18 09:19 Dose: 20 mg Guaifenesin/Dextromethorphan (Robitussin Dm) 15 ml PO Q4H PRN PRN Reason: Cough Sodium Chloride (Normal Saline 0.9%) 1,000 mls @ 50 mls/hr IV .Q20H [facility] Last Admin: 02/03/18 05:58 Dose: 1,000 mls Miscellaneous Medication (Pharmacy To Dose) 1 each IVPB DAILYPRN PRN PRN Reason: LABS Phosphorus (Kphos Neutral) 500 mg PO TID-WM [facility] Last Admin: 02/03/18 11:50 Dose: 500 mg Saccharomyces Boulardii (Florastor) 250 mg PO DAILY [facility] Last Admin: 02/03/18 09:19 Dose: 250 mg Sodium Bicarbonate (Bicarbonate, Sodium) 650 mg PO TID [facility] Last Admin: 02/03/18 15:08 Dose: 650 mg Sodium Chloride (Flush - Normal Saline) 10 ml IVF Q12HR [facility] Last Admin: 02/03/18 09:20 Dose: Not Given Sodium Chloride (Flush - Normal Saline) 10 ml IVF PRN PRN PRN Reason: Saline Flush Last Admin: 01/29/18 21:32 Dose: 10 ml Tramadol HCl (Ultram) 50 mg PO Q6H PRN PRN Reason: Pain 4-6 Zolpidem Tartrate (Ambien) 5 mg PO HSPRN PRN PRN Reason: Insomnia
[2018-02-03] MEDS ORDERED: Loperamide HCl 2 MG CAP PO PRN (21:08)
[2018-02-03] MEDS: Cipro 250 MG TAB PO SCH (22:20)
[2018-02-03] MEDS: Estrogens, Conjugated 30 GM TUBE VAG SCH (22:20)
[2018-02-04 04:26] LABS: #Lymphocytes 1.1 thou/uL (1.20-3.40); #Monocytes 0.4 thou/uL (0.11-0.59); #Neutrophils 2.2 thou/uL (1.40-6.50); %Basophils 0.6 % (0.0-1.0); %Eosinophils 1.2 % (0.0-10.0); %Lymphocytes 29.4 % (21.0-51.0); %Neutrophils 57.8 % (42.0-75.0); Mean Corpuscular HGB CONC 35.8 g/dL (32.0-36.0); Mean Corpuscular Hemoglobin 34.5 pg (27.0-31.0); Mean Corpuscular Volume 96.4 fl (81.0-99.0); Mean Platelet Volume 7.3 fL (7.4-10.4); Platelet Count 103 thou/uL (130-400); RBC Distribution Width 13.1 % (11.5-14.5); Red Blood Cell (RBC) Count 2.04 mill/uL (4.20-5.40); White Blood Cell (WBC) Count 3.7 thou/uL (4.8-10.8)
[2018-02-04 04:41] LABS: Anion Gap 11 mmol/L (10-20); BUN (Urea Nitrogen) 52 mg/dL (9.8-20.1); Calc. Creatinine Clearance 23 mL/min (70-130); Calcium 7.4 mg/dL (7.8-10.44); Carbon Dioxide 17 mmol/L (23-31); Chloride 108 mmol/L (98-107); Estimated GFR-MDRD 29; Glucose 93 mg/dL (83-110); Potassium 3.4 mmol/L (3.5-5.1); Sodium 133 mmol/L (136-145)
[2018-02-04] MEDS: Cipro 250 MG TAB PO SCH ×2 (07:43→20:46)
[2018-02-04] MEDS: Famotidine 20 MG TAB PO SCH (07:44)
[2018-02-04] MEDS: Sodium Bicarbonate Tab 325 MG TAB PO SCH ×3 (07:44→20:47)
[2018-02-04] MEDS: K-Phos Neutral 250 MG TAB PO SCH ×3 (07:44→16:09)
[2018-02-04] MEDS: Saccharomyces boulardii 250 MG CAP PO SCH (07:45)
[2018-02-04] MEDS: Amlodipine 5 MG TAB PO SCH (07:45)
[2018-02-04] MEDS: Docusate 100 MG CAP PO SCH ×3 (07:48→20:51)
--- NOTE | 2018-02-04 09:44 | PRG ---
DATE OF SERVICE: 02/04/2018 SERVICE: Renal Medicine. SUBJECTIVE: Ms. Saha is an 87-year-old white female, who was seen by the Renal Service for her acu te kidney injury. This was a hemodynamically-mediated renal dysfunction. Renal function improved wi th IV hydration. Her creatinine is noted to have stabilized to a most recent value of 1.68. No othe r complaints. No chest pain or shortness of breath. PHYSICAL EXAMINATION: VITAL SIGNS: Blood pressure is 151/77, heart rate 74, respiratory rate 12, temperature 98, pulse ox 95%. GENERAL EXAM: Noted to be awake, alert, comfortable, not in distress. SKIN: Adequate turgor. HEENT: Pale conjunctivae, anicteric sclerae. NECK: No neck mass, no carotid bruits, no JVD. CHEST: No deformities. LUNGS: Clear breath sounds. HEART: Normal sinus rhythm. No murmur, no gallops, no rubs. ABDOMEN: Globular, soft, nontender, no masses. EXTREMITIES: No edema, no deformities. Medications of 02/04/2018 reviewed. LABORATORY DATA: Laboratories of 02/04/2018, white count 3.7, hemoglobin 7, sodium 133, potassium 3. 4, chloride 108, carbon dioxide 17, BUN 52, creatinine 1.68, calcium 7.4. ASSESSMENT AND PLAN: 1. Anemia. Consider starting Epogen with iron supplementation. Consider also giving 1 unit of pack ed RBC. 2. Acute kidney injury - hemodynamically-mediated renal dysfunction, much improved. Currently, she is probably most likely at baseline GFR. There is no indication for any dialytic intervention. Agree with current management. If the patient is discharged, consider following up at the Renal Clin ic.
[2018-02-04] MEDS ORDERED: Epoetin (ESRD) 20,000 UNITS/ML SC SCH (10:00)
[2018-02-04] MEDS: Ferrous Sulfate 325 MG TAB PO SCH (16:09)
[2018-02-04] MEDS: Sodium Chloride 0.9% 1,000 ML IV SCH (16:13)
[2018-02-04] MEDS: Estrogens, Conjugated 30 GM TUBE VAG SCH (20:48)
--- NOTE | 2018-02-04 22:03 | PDOC.PN ---
- Subjective Encounter Start Date: 02/04/18 Encounter Start Time: 10:30 Subjective: pt up in bed no complains. pt had cardenas replaced due to gross hematuria - Objective Resuscitation Status: Resuscitation Status DNR:Do Not Resuscitate Vital Signs & Weight: Vital Signs (12 hours) Temp Pulse Pulse Resp BP BP BP 02/04/18 20:00 98.1 F 77 20 136/71 02/04/18 16:00 98.0 F 75 16 134/67 02/04/18 12:49 97.8 F 78 16 151/69 H 02/04/18 11:09 97.9 F 78 18 156/70 H 02/04/18 10:39 97.9 F 78 16 157/68 H 02/04/18 10:23 97.9 F 74 16 161/69 H Pulse Ox 02/04/18 20:00 97 02/04/18 16:00 95 02/04/18 12:49 93 L 02/04/18 11:09 93 L 02/04/18 10:39 96 02/04/18 10:23 95 Weight Admit Weight 127 lb 12.8 oz Weight 134 lb 9.6 oz I&O: 02/03/18 02/04/18 02/05/18 06:59 06:59 06:59 Intake Total 1504 1180 1750 Output Total 850 1800 1900 Balance 654 -620 -150 Result Diagrams: 02/04/18 13:25 02/04/18 03:35 Phys Exam - Physical Examination HEENT: PERRLA, moist MMs, sclera anicteric, TM's clear, oral pharynx no lesions , 2+ tonsils Neck: no nodes, no JVD, supple, full ROM Respiratory: no wheezing, no rales, no rhonchi, wheezing present, clear to auscultation bilateral Cardiovascular: RRR, no significant murmur, no rub, gallop, irregular Gastrointestinal: soft, non-tender, no distention, positive bowel sounds Dx/Plan (1) ARF (acute renal failure) Status: Acute Comment: improving with IVF (2) Metabolic acidosis Code(s): E87.2 - ACIDOSIS Status: Acute Comment: improving. on Sodium bicarb PO (3) Hematuria, gross Status: Acute Comment: improving (4) Acute blood loss anemia Code(s): D62 - ACUTE POSTHEMORRHAGIC ANEMIA Status: Acute - Plan * pt's hh was low being transfused one unit. Pt has Cardenas back in gross hematuria. will continue to monitor. urology called recommended removal of cardenas but pt's hematuria is significant will keep cardenas in for now. will discharge once ok with nephrology and urology. Review of Systems - Review of Systems Eyes: negative: Pain, Vision Change, Conjunctivae Inflammation, Eyelid Inflammation, Redness, Other ENT: negative: Ear Pain, Ear Discharge, Nose Pain, Nose Discharge, Nose Congestion, Mouth Pain, Mouth Swelling, Throat Pain, Throat Swelling, Other Respiratory: negative: Cough, Dry, Shortness of Breath, Hemoptysis, SOB with Excertion, Pleuritic Pain, Sputum, Wheezing Cardiovascular: negative: chest pain, palpitations, orthopnea, paroxysmal nocturnal dyspnea, edema, light headedness, other Gastrointestinal: negative: Nausea, Vomiting, Abdominal Pain, Diarrhea, Constipation, Melena, Hematochezia, Other Genitourinary: negative: Dysuria, Frequency, Incontinence, Hematuria, Retention , Other - Medications/Allergies Allergies/Adverse Reactions: Allergies Allergy/AdvReac Type Severity Reaction Status Date / Time bacitracin Allergy Unknown Verified 03/24/13 03:53 [From Neosporin ([id number])] bacitracin zinc Allergy Unknown Verified 03/24/13 03:53 [From Neosporin (qod-wmq-tbmdj)] neomycin sulfate Allergy Unknown Verified 03/24/13 03:53 [From Neosporin (brv-xve-ulxwq)] Penicillins Allergy Unknown Verified 03/24/13 03:53 polymyxin B Allergy Unknown Verified 03/24/13 03:53 [From Neosporin ([id number])] polymyxin B sulfate Allergy Unknown Verified 03/24/13 03:53 [From Polysporin] Medications: Current Medications Acetaminophen (Tylenol) 650 mg PO Q4H PRN PRN Reason: Headache/Fever or Pain Last Admin: 02/01/18 00:36 Dose: 650 mg Amlodipine Besylate (Norvasc) 2.5 mg PO DAILY [facility] Last Admin: 02/04/18 07:45 Dose: 2.5 mg Ciprofloxacin (Cipro) 250 mg PO 0600,2000 [facility] Last Admin: 02/04/18 20:46 Dose: 250 mg Docusate Sodium (Colace) 100 mg PO BID [facility] Last Admin: 02/04/18 20:51 Dose: Not Given Epoetin Zeke (Procrit) 7,500 units SC Q7D [facility] Last Admin: 02/04/18 13:06 Dose: 7,500 units Estrogens Conjugated (Premarin Cream) 1.5 gm VAG HS [facility] Last Admin: 02/04/18 20:48 Dose: 1.5 gm Famotidine (Pepcid) 20 mg PO DAILY [facility] Last Admin: 02/04/18 07:44 Dose: 20 mg Ferrous Sulfate (Feosol) 325 mg PO BID-[facility] Last Admin: 02/04/18 16:09 Dose: 325 mg Guaifenesin/Dextromethorphan (Robitussin Dm) 15 ml PO Q4H PRN PRN Reason: Cough Sodium Chloride (Normal Saline 0.9%) 1,000 mls @ 50 mls/hr IV .Q20H [facility] Last Admin: 02/04/18 16:13 Dose: Not Given Loperamide HCl (Imodium) 2 mg PO PRN PRN PRN Reason: Diarrhea/Loose Stools Last Admin: 02/03/18 22:50 Dose: 2 mg Miscellaneous Medication (Pharmacy To Dose) 1 each IVPB DAILYPRN PRN PRN Reason: LABS Phosphorus (Kphos Neutral) 500 mg PO TID-[facility] Last Admin: 02/04/18 16:09 Dose: 500 mg Saccharomyces Boulardii (Florastor) 250 mg PO DAILY [facility] Last Admin: 02/04/18 07:45 Dose: 250 mg Sodium Bicarbonate (Bicarbonate, Sodium) 650 mg PO TID [facility] Last Admin: 02/04/18 20:47 Dose: 650 mg Sodium Chloride (Flush - Normal Saline) 10 ml IVF Q12HR [facility] Last Admin: 02/04/18 20:50 Dose: Not Given Sodium Chloride (Flush - Normal Saline) 10 ml IVF PRN PRN PRN Reason: Saline Flush Last Admin: 01/29/18 21:32 Dose: 10 ml Tramadol HCl (Ultram) 50 mg PO Q6H PRN PRN Reason: Pain 4-6 Zolpidem Tartrate (Ambien) 5 mg PO HSPRN PRN PRN Reason: Insomnia
[2018-02-05 04:54] LABS: Hemoglobin 8.2 g/dL (12.0-16.0)
[2018-02-05 05:17] LABS: Anion Gap 11 mmol/L (10-20); BUN (Urea Nitrogen) 48 mg/dL (9.8-20.1); Calc. Creatinine Clearance 23 mL/min (70-130); Calcium 7.4 mg/dL (7.8-10.44); Carbon Dioxide 20 mmol/L (23-31); Chloride 107 mmol/L (98-107); Estimated GFR-MDRD 30; Glucose 134 mg/dL (83-110); Magnesium 1.6 mg/dL (1.6-2.6); Sodium 134 mmol/L (136-145)
--- NOTE | 2018-02-05 05:32 | CON ---
DATE OF CONSULTATION: 02/04/2018 INITIAL REASON FOR CONSULTATION: 1. Gross hematuria. 2. Urinary retention. 3. Possible posterior bladder wall mass, which has now been ruled out. 4. Acute renal failure. PROBLEM LIST: 1. Gross hematuria, R31.0. 2. Urinary retention, R33.9. 3. Abnormal urinary tract by radiological imaging, R93.49. 4. Cystitis, N30.90. 5. Abnormal weight loss, R63.4. 6. Acute renal insufficiency, N28.9. 7. 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 8. Postmenopausal atrophic vaginitis, N95.2. BRIEF HISTORY AND REASON FOR INITIAL CONSULTATION: Ms. Karin Saha is a pleasant 87-year-old white female, known to me for history of gross hematuria developing after a fall at home. Her fall was severe enough to result in fractures of ribs 7 and 8 on the left side. These are associated with her pulmonary space, not her kidneys. There is an intervening spleen as well, and we do not believe her kidney was injured in a fall. The patient had radiologic imaging of CT scan and ultrasound studies, which suggested a possible posterior bladder wall mass or layering of debris. She did undergo cystoscopic evaluation on 01/28/2018, was found to have pyocystis. She had some inflammatory changes to her bladder wall, underwent biopsy and this was returned with no evidence of cancer, simply inflammatory changes. INTERVAL EVENTS: Since I last saw Ms. Saha last night, she had her catheter out under my service and evaluation yesterday and was clot free and had no hematuria at that point. The patient has developed interval hematuria and has had a Daniels catheter replaced. She has apparently not been on any new anticoagulants. She was started on Epogen due to her anemic state. The patient has had gross clots in the existing small bore catheter which is in place. PHYSICAL EXAMINATION: GENERAL: A pleasant, elderly, frail white female, in no apparent distress. She is a reasonable historian, does not recall any shots other than her Epogen shot today. VITAL SIGNS: The patient has been afebrile throughout the day. Current temperature 98.1, pulse 77, respirations 20, O2 saturations 97% on room air. Blood pressure is 136/71. HEAD, EARS, EYES, NOSE, THROAT: Extraocular movements are intact. Sclerae are anicteric. Oropharynx is clear. NECK: Supple. LUNGS: Clear to auscultation bilaterally. CARDIAC: Regular rate and rhythm. ABDOMEN: Soft and nontender. There is no suprapubic mass noted. GENITOURINARY: Indwelling Daniels catheter is in place and is draining grossly bloody urine. I did hand irrigate the patient's bladder and did recover about 500 mL of relatively soft clot from her bladder. I am recommending that we replaced the existing catheter with an indwelling CBI catheter on continuous bladder irrigation on this patient. EXTREMITIES: Appear within normal limits. LABORATORY STUDIES: White count is down to 3.7. The patient's hemoglobin is 7.0 and hematocrit of 19.6 prior to transfusion, hemoglobin increased to 9 with a hematocrit of 25.7, showing good utilization after transfusion of 1 unit of packed red cells. Serum chemistries show the patient's current blood urea nitrogen of 52, creatinine 1.68. RADIOLOGIC STUDIES: I did review the patient's admission CT scan and does not appear that the kidney has any contusions on the left side at all. Did notice the rib fractures were nowhere close to the patient's kidney and there is no evidence of perinephric hematoma or swelling observed on evaluation of the CT scan. The patient's spleen appears to be appropriately intact on the admission CT scan. ASSESSMENT AND PLAN: 1. Gross hematuria. No current source of the patient's cystitis and potentially a very small biopsy site which was fulgurated. 2. Acute renal insufficiency with now probable chronic manifestations, this might improve with additional transfusion of blood as the patient is quite anemic at this point. Unclear if the patient's kidney function is going to completely recover. She seems to have achieved a new baseline. 3. Upper tract evaluation. The patient's upper urinary tract has not really been evaluated at this point. She had a CT scan, which showed no kidney stones , no obstruction, no hydronephrosis, no obvious renal injuries. If her kidney function improves appropriately, she might be a candidate for a CT and IVP study. This ultimately can be delayed. Retrograde evaluation of the patient may be valuable for evaluating her ureters. I do not believe her fall was strong enough to result in a ureteral injury, although this could be a potential source of additional bleeding. The patient has no significant risk factors for upper tract transitional cell carcinoma and I see no lesions on the CT scan or ultrasound that would suggest a primary renal malignancy. In all likelihood, the bleeding is either from the biopsy site, cystitis or urethral polyps, any of which could result in this presentation. I would strenuously recommend strict avoidance of any anticoagulants in this patient. 4. Hematuria management. A CBI catheter will be placed tonight. We placed on sterile water CBI. The patient's catheter may be hand irrigated p.r.n. Total assessment, evaluation, and consultation time were in excess of 35 minutes with over 25 minutes of bedside care delivered directly to the patient with hand irrigation of clots free from the bladder. Over 35 minutes of subsequent evaluation and assessment time was spent in evaluation and assessment of this patient, over of which was in face to face evaluation, or in coordination of care, or communication with the patient's family regarding her care, exclusive of any procedures performed, [id number]. [facility]
[2018-02-05] MEDS: Saccharomyces boulardii 250 MG CAP PO SCH (08:25)
[2018-02-05] MEDS: Amlodipine 5 MG TAB PO SCH (08:25)
[2018-02-05] MEDS: Sodium Bicarbonate Tab 325 MG TAB PO SCH ×3 (08:25→20:00)
[2018-02-05] MEDS: Famotidine 20 MG TAB PO SCH (08:25)
[2018-02-05] MEDS: Cipro 250 MG TAB PO SCH ×2 (08:27→20:00)
[2018-02-05] MEDS: Ferrous Sulfate 325 MG TAB PO SCH ×2 (08:27→17:16)
[2018-02-05] MEDS: K-Phos Neutral 250 MG TAB PO SCH ×3 (08:27→17:16)
--- NOTE | 2018-02-05 09:57 | PDOC.PN ---
- Subjective Encounter Start Date: 02/05/18 Encounter Start Time: 08:20 -: old records requested/rev Patient seen and examined for hematuria, still has pinkish urine and on CBI, pt feels fine. No new complaints. No overnight events - Objective Resuscitation Status: Resuscitation Status DNR:Do Not Resuscitate MAR Reviewed: Yes Vital Signs & Weight: Vital Signs (12 hours) Temp Pulse Resp BP BP BP Pulse Ox 02/05/18 08:25 75 147/57 H 02/05/18 08:00 98.1 F 72 16 147/57 H 95 02/05/18 04:00 98.3 F 79 20 176/73 H 97 02/05/18 00:00 98.6 F 100 20 172/73 H 96 Weight Admit Weight 127 lb 12.8 oz Weight 134 lb 9.6 oz I&O: 02/04/18 02/05/18 02/06/18 06:59 06:59 06:59 Intake Total 1180 81393 Output Total 1800 13293 Balance -620 60915 Result Diagrams: 02/05/18 04:22 02/05/18 04:22 Phys Exam - Physical Examination Constitutional: NAD HEENT: PERRLA, moist MMs, sclera anicteric Neck: no JVD, supple Respiratory: no wheezing, no rales, no rhonchi Cardiovascular: RRR, no significant murmur, no rub Gastrointestinal: soft, non-tender, no distention, positive bowel sounds cardenas+ on CBI Musculoskeletal: no edema, pulses present Neurological: non-focal, normal sensation Lymphatic: no nodes Psychiatric: normal affect, A&O x 3 Skin: no rash, normal turgor Dx/Plan (1) ARF (acute renal failure) Status: Acute Comment: improving with IVF (2) Acute blood loss anemia Code(s): D62 - ACUTE POSTHEMORRHAGIC ANEMIA Status: Acute (3) Atrophic vaginitis Code(s): N95.2 - POSTMENOPAUSAL ATROPHIC VAGINITIS Status: Acute Comment: on Estrogen (4) Bladder wall thickening Code(s): N32.89 - OTHER SPECIFIED DISORDERS OF BLADDER Status: Acute Comment : s/p biopsy - No malignancy (5) Electrolyte abnormality Code(s): E87.8 - OTH DISORDERS OF ELECTROLYTE AND FLUID BALANCE, NEC Status: Acute Comment: Hypokalemia/Hypophosphatemia/Hyponatremia/Hypomagnesemia (6) Hematuria, gross Status: Acute Comment: improving (7) Metabolic acidosis Code(s): E87.2 - ACIDOSIS Status: Acute Comment: improving. on Sodium bicarb PO (8) UTI (urinary tract infection) Status: Acute Qualifiers: Urinary tract infection type: acute cystitis Comment: on Atbx (9) Weight loss, abnormal Code(s): R63.4 - ABNORMAL WEIGHT LOSS Status: Acute Comment: Moderate protein calorie malnutrition (10) Essential hypertension Code(s): I10 - ESSENTIAL (PRIMARY) HYPERTENSION Status: Chronic Comment: Cont Amlodipine (11) HTN (hypertension) Code(s): I10 - ESSENTIAL (PRIMARY) HYPERTENSION Status: Chronic Comment: on Amlodipine (12) Hypothermia Code(s): T68.XXXA - HYPOTHERMIA, INITIAL ENCOUNTER Status: Resolved - Plan cont current plan of care, social media content manager * hematuria slowly clearing with CBI * we need to see if her hematuria clears off CBI * will need intermittent catheterization at home * home health will be arranged by case management assistant * medication reviewed as below * symptomatic treatment. Review of Systems - Review of Systems Constitutional: negative: fever, chills, sweats, weakness, malaise, other Eyes: negative: Pain, Vision Change, Conjunctivae Inflammation, Eyelid Inflammation, Redness, Other ENT: negative: Ear Pain, Ear Discharge, Nose Pain, Nose Discharge, Nose Congestion, Mouth Pain, Mouth Swelling, Throat Pain, Throat Swelling, Other Respiratory: negative: Cough, Dry, Shortness of Breath, Hemoptysis, SOB with Excertion, Pleuritic Pain, Sputum, Wheezing Cardiovascular: negative: chest pain, palpitations, orthopnea, paroxysmal nocturnal dyspnea, edema, light headedness, other Gastrointestinal: negative: Nausea, Vomiting, Abdominal Pain, Diarrhea, Constipation, Melena, Hematochezia, Other Genitourinary: Hematuria. negative: Dysuria, Frequency, Incontinence, Retention , Other Musculoskeletal: negative: Neck Pain, Shoulder Pain, Arm Pain, Back Pain, Hand Pain, Leg Pain, Foot Pain, Other Skin: negative: Rash, Lesions, Wyatt, Bruising, Other - Medications/Allergies Allergies/Adverse Reactions: Allergies Allergy/AdvReac Type Severity Reaction Status Date / Time bacitracin Allergy Unknown Verified 03/24/13 03:53 [From Neosporin ([id number])] bacitracin zinc Allergy Unknown Verified 03/24/13 03:53 [From Neosporin ([id number])] neomycin sulfate Allergy Unknown Verified 03/24/13 03:53 [From Neosporin ([id number])] Penicillins Allergy Unknown Verified 03/24/13 03:53 polymyxin B Allergy Unknown Verified 03/24/13 03:53 [From Neosporin ([id number])] polymyxin B sulfate Allergy Unknown Verified 03/24/13 03:53 [From Polysporin] Medications: Current Medications Acetaminophen (Tylenol) 650 mg PO Q4H PRN PRN Reason: Headache/Fever or Pain Last Admin: 02/01/18 00:36 Dose: 650 mg Amlodipine Besylate (Norvasc) 2.5 mg PO DAILY [facility] Last Admin: 02/05/18 08:25 Dose: 2.5 mg Ciprofloxacin (Cipro) 250 mg PO [phone] [facility] Last Admin: 02/05/18 08:27 Dose: 250 mg Epoetin Zeke (Procrit) 7,500 units SC Q7D [facility] Last Admin: 02/04/18 13:06 Dose: 7,500 units Estrogens Conjugated (Premarin Cream) 1.5 gm VAG HS [facility] Last Admin: 02/04/18 20:48 Dose: 1.5 gm Famotidine (Pepcid) 20 mg PO DAILY [facility] Last Admin: 02/05/18 08:25 Dose: 20 mg Ferrous Sulfate (Feosol) 325 mg PO BID-[facility] Last Admin: 02/05/18 08:27 Dose: 325 mg Guaifenesin/Dextromethorphan (Robitussin Dm) 15 ml PO Q4H PRN PRN Reason: Cough Sodium Chloride (Normal Saline 0.9%) 1,000 mls @ 50 mls/hr IV .Q20H [facility] Last Admin: 02/04/18 16:13 Dose: Not Given Loperamide HCl (Imodium) 2 mg PO PRN PRN PRN Reason: Diarrhea/Loose Stools Last Admin: 02/03/18 22:50 Dose: 2 mg Miscellaneous Medication (Pharmacy To Dose) 1 each IVPB DAILYPRN PRN PRN Reason: LABS Phosphorus (Kphos Neutral) 500 mg PO TID-[facility] Last Admin: 02/05/18 08:27 Dose: 500 mg Saccharomyces Boulardii (Florastor) 250 mg PO DAILY [facility] Last Admin: 02/05/18 08:25 Dose: 250 mg Sodium Bicarbonate (Bicarbonate, Sodium) 650 mg PO TID [facility] Last Admin: 02/05/18 08:25 Dose: 650 mg Sodium Chloride (Flush - Normal Saline) 10 ml IVF Q12HR [facility] Last Admin: 02/05/18 08:28 Dose: Not Given Sodium Chloride (Flush - Normal Saline) 10 ml IVF PRN PRN PRN Reason: Saline Flush Last Admin: 01/29/18 21:32 Dose: 10 ml Tramadol HCl (Ultram) 50 mg PO Q6H PRN PRN Reason: Pain 4-6 Zolpidem Tartrate (Ambien) 5 mg PO HSPRN PRN PRN Reason: Insomnia
[2018-02-05] MEDS: Sodium Chloride 0.9% 1,000 ML IV SCH ×2 (17:15→23:05)
[2018-02-05] MEDS: Estrogens, Conjugated 30 GM TUBE VAG SCH (20:01)
--- NOTE | 2018-02-06 01:51 | CON ---
DATE OF CONSULTATION: 02/05/2018 INITIAL REASON FOR CONSULTATION: 1. Gross hematuria. 2. Urinary retention. 3. Possible posterior bladder wall mass which has now been ruled out. 4. Acute renal failure. PROBLEM LIST: 1. Gross hematuria, R31.0. 2. Urinary retention, R33.9. 3. Abnormal urinary tract by radiologic imaging, R93.49. 4. Cystitis, N30.90. 5. Abnormal weight loss, R63.4. 6. Acute renal insufficiency, N28.9. 7. 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 8. Postmenopausal atrophic vaginitis, N95.2. BRIEF HISTORY AND REASON FOR INITIAL CONSULTATION: Ms. Karin Saha is a pleasant 87-year-old white female brought into the hospital by her daughter due to a change in mental status, weight loss and development of gross hematuria after a fall at home. The patient suffered a fall, significant enough to resultant fractures of ribs 7 and 8 on the left side. These are in the thoracic area next to the lung not next to her kidney. The patient underwent radiologic imaging by CT and ultrasound evaluation, which demonstrated possible posterior bladder wall mass or layering of debris, it later turned out to be the actual case. She underwent cystoscopic evaluation demonstrating pyocystis on 01/28/2018. We did perform a small two cold cup biopsy of the patient's trigone area and these have returned without evidence of malignancy. 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 The patient has been on a medical floor bed for about a week and at the present time continues to have a degree of hematuria despite the fulguration portion of our operation. She was doing fine for several days and then developed gross hematuria after Lovenox. At this point, the patient is still having a little bit of hematuria. INTERVAL EVENTS: The patient had her catheter exchanged out for 24 Kinyarwanda CBI catheter yesterday and has been doing well with that. She is a fairly having clots irrigated from her bladder without difficulty. At this point, the urine is substantially cleared and is no longer grossly bloody now appears almost the same color as the irrigation which is entering her bladder. She has been otherwise stable and is feeling significantly better than when admitted. She had a degree of altered mental status at admission. PHYSICAL EXAMINATION: GENERAL: This is a pleasant, elderly, frail white female in no apparent distress. She is able to communicate her needs and is a reasonable historian of the day's events for herself. VITAL SIGNS: Temperature is 98.1, pulse 75, respirations are 16, and blood pressure is 147/57. HEAD, EYES, EARS, NOSE, AND THROAT: Extraocular movements are intact. Sclerae are anicteric. Oropharynx is clear. NECK: Supple. LUNGS: Clear to auscultation bilaterally. CARDIAC: Regular rate and rhythm without murmur, rub or gallop. ABDOMEN: Soft and nontender. Bowel sounds are heard on auscultation. GENITOURINARY: An indwelling 24-Kinyarwanda three-way Daniels catheter is in place. Irrigation is running at an extremely low rate. The patient has only minimal hematuria. I did hand irrigate the patient's bladder recovering several small clots. After this, the urine cleared substantially. We left her on low rate CBI at that point. LABORATORY STUDIES: The patient's hemoglobin is 8.2 today with hematocrit of 23.3. Serum chemistries show some normalization, current potassium 4, chloride 107, sodium is 134, blood urea nitrogen is 48, creatinine is 1.63, essentially unchanged over the last 24 hours. ASSESSMENT AND PLAN: 1. Gross hematuria. The current source is most likely the patient's cystitis and recent very small biopsy site which was recently fulgurated as well. 2. Acute renal insufficiency, now with probable chronic manifestations, probably a chronic kidney disease stage 3 A or B depending upon how much improvement there is. 3. Upper tract evaluation. The patient's upper tract has not been evaluated by CT scan or retrograde evaluation due to concurrent bladder infection and acute renal insufficiency. These studies can be delayed for some time until the patient's overall general condition improves. 4. Hematuria management. The patient will continue with CBI catheter on low rate tonight and possibly tomorrow night. We will plan on placing the patient on no CBI at least by Thursday, possibly consider a voiding trial on Thursday. As the patient is a chronic retainer, she will be on home intermittent self- catheterization 5 times per day which could be restarted on Thursday. If she succeed with that she should be suitable for discharge on Thursday. Over 35 minutes of subsequent evaluation and assessment time was spent in evaluation and assessment of this patient, over of which was in face to face evaluation, or in coordination of care, or communication with the patient's family regarding care, exclusive of any procedures performed, [id number]. [facility]
[2018-02-06] MEDS: Cipro 250 MG TAB PO SCH ×2 (05:35→20:39)
[2018-02-06] MEDS: Amlodipine 5 MG TAB PO SCH (09:20)
[2018-02-06] MEDS: K-Phos Neutral 250 MG TAB PO SCH ×3 (09:21→16:55)
[2018-02-06] MEDS: Famotidine 20 MG TAB PO SCH (09:22)
[2018-02-06] MEDS: Ferrous Sulfate 325 MG TAB PO SCH ×2 (09:22→16:55)
[2018-02-06] MEDS: Saccharomyces boulardii 250 MG CAP PO SCH (09:22)
[2018-02-06] MEDS: Sodium Bicarbonate Tab 325 MG TAB PO SCH ×3 (09:22→20:39)
--- NOTE | 2018-02-06 09:41 | PDOC.PN ---
- Subjective Encounter Start Date: 02/06/18 Encounter Start Time: 09:00 Patient seen and examined for hematuria. No new complaints. No overnight events - Objective Resuscitation Status: Resuscitation Status DNR:Do Not Resuscitate MAR Reviewed: Yes Vital Signs & Weight: Vital Signs (12 hours) Temp Pulse Resp BP BP Pulse Ox 02/06/18 09:20 81 133/67 02/06/18 08:00 98.2 F 81 16 133/67 93 L Weight Admit Weight 127 lb 12.8 oz Weight 134 lb 9.6 oz I&O: 02/05/18 02/06/18 02/07/18 06:59 06:59 06:59 Intake Total 75926 29083 Output Total 38483 00408 Balance 28306 -8705 Result Diagrams: 02/05/18 04:22 02/05/18 04:22 Phys Exam - Physical Examination Constitutional: NAD HEENT: PERRLA, moist MMs, sclera anicteric Neck: no JVD, supple Respiratory: no wheezing, no rales, no rhonchi Cardiovascular: RRR, no significant murmur, no rub Gastrointestinal: soft, non-tender, no distention, positive bowel sounds Musculoskeletal: no edema, pulses present Neurological: non-focal, normal sensation, moves all 4 limbs Lymphatic: no nodes Psychiatric: normal affect, A&O x 3 Skin: no rash, normal turgor Dx/Plan (1) ARF (acute renal failure) Status: Acute Comment: improving with IVF (2) Acute blood loss anemia Code(s): D62 - ACUTE POSTHEMORRHAGIC ANEMIA Status: Acute (3) Atrophic vaginitis Code(s): N95.2 - POSTMENOPAUSAL ATROPHIC VAGINITIS Status: Acute Comment: on Estrogen (4) Bladder wall thickening Code(s): N32.89 - OTHER SPECIFIED DISORDERS OF BLADDER Status: Acute Comment : s/p biopsy - No malignancy (5) Electrolyte abnormality Code(s): E87.8 - OTH DISORDERS OF ELECTROLYTE AND FLUID BALANCE, NEC Status: Acute Comment: Hypokalemia/Hypophosphatemia/Hyponatremia/Hypomagnesemia (6) Hematuria, gross Status: Acute Comment: improving (7) Metabolic acidosis Code(s): E87.2 - ACIDOSIS Status: Acute Comment: improving. on Sodium bicarb PO (8) UTI (urinary tract infection) Status: Acute Qualifiers: Urinary tract infection type: acute cystitis Comment: on Atbx (9) Weight loss, abnormal Code(s): R63.4 - ABNORMAL WEIGHT LOSS Status: Acute Comment: Moderate protein calorie malnutrition (10) Essential hypertension Code(s): I10 - ESSENTIAL (PRIMARY) HYPERTENSION Status: Chronic Comment: Cont Amlodipine (11) HTN (hypertension) Code(s): I10 - ESSENTIAL (PRIMARY) HYPERTENSION Status: Chronic Comment: on Amlodipine (12) Hypothermia Code(s): T68.XXXA - HYPOTHERMIA, INITIAL ENCOUNTER Status: Resolved - Plan cont current plan of care, plan discussed w/ family * today hematuria resolved, but still on CBI * as per urology tomorrow CBI will be turned off and monitor * on Thursday voiding trial * expecting discharge on Thursday * medication reviewed as below * symptomatic treatment * discussed with daughter. Review of Systems - Review of Systems Eyes: negative: Pain, Vision Change, Conjunctivae Inflammation, Eyelid Inflammation, Redness, Other ENT: negative: Ear Pain, Ear Discharge, Nose Pain, Nose Discharge, Nose Congestion, Mouth Pain, Mouth Swelling, Throat Pain, Throat Swelling, Other Respiratory: negative: Cough, Dry, Shortness of Breath, Hemoptysis, SOB with Excertion, Pleuritic Pain, Sputum, Wheezing Cardiovascular: negative: chest pain, palpitations, orthopnea, paroxysmal nocturnal dyspnea, edema, light headedness, other Gastrointestinal: negative: Nausea, Vomiting, Abdominal Pain, Diarrhea, Constipation, Melena, Hematochezia, Other Genitourinary: negative: Dysuria, Frequency, Incontinence, Hematuria, Retention , Other Musculoskeletal: negative: Neck Pain, Shoulder Pain, Arm Pain, Back Pain, Hand Pain, Leg Pain, Foot Pain, Other Skin: negative: Rash, Lesions, Wyatt, Bruising, Other - Medications/Allergies Allergies/Adverse Reactions: Allergies Allergy/AdvReac Type Severity Reaction Status Date / Time bacitracin Allergy Unknown Verified 03/24/13 03:53 [From Neosporin ([id number])] bacitracin zinc Allergy Unknown Verified 03/24/13 03:53 [From Neosporin ([id number])] neomycin sulfate Allergy Unknown Verified 03/24/13 03:53 [From Neosporin ([id number])] Penicillins Allergy Unknown Verified 03/24/13 03:53 polymyxin B Allergy Unknown Verified 03/24/13 03:53 [From Neosporin ([id number])] polymyxin B sulfate Allergy Unknown Verified 03/24/13 03:53 [From Polysporin] Medications: Current Medications Acetaminophen (Tylenol) 650 mg PO Q4H PRN PRN Reason: Headache/Fever or Pain Last Admin: 02/01/18 00:36 Dose: 650 mg Amlodipine Besylate (Norvasc) 2.5 mg PO DAILY [facility] Last Admin: 02/06/18 09:20 Dose: 2.5 mg Ciprofloxacin (Cipro) 250 mg PO [phone] [facility] Last Admin: 02/06/18 05:35 Dose: 250 mg Epoetin Zeke (Procrit) 7,500 units SC Q7D [facility] Last Admin: 02/04/18 13:06 Dose: 7,500 units Estrogens Conjugated (Premarin Cream) 1.5 gm VAG HS [facility] Last Admin: 02/05/18 20:01 Dose: Not Given Famotidine (Pepcid) 20 mg PO DAILY [facility] Last Admin: 02/06/18 09:22 Dose: 20 mg Ferrous Sulfate (Feosol) 325 mg PO BID-[facility] Last Admin: 02/06/18 09:22 Dose: 325 mg Guaifenesin/Dextromethorphan (Robitussin Dm) 15 ml PO Q4H PRN PRN Reason: Cough Sodium Chloride (Normal Saline 0.9%) 1,000 mls @ 50 mls/hr IV .Q20H [facility] Last Admin: 02/05/18 23:05 Dose: 1,000 mls Loperamide HCl (Imodium) 2 mg PO PRN PRN PRN Reason: Diarrhea/Loose Stools Last Admin: 02/03/18 22:50 Dose: 2 mg Miscellaneous Medication (Pharmacy To Dose) 1 each IVPB DAILYPRN PRN PRN Reason: LABS Phosphorus (Kphos Neutral) 500 mg PO TID-[facility] Last Admin: 02/06/18 09:21 Dose: 500 mg Saccharomyces Boulardii (Florastor) 250 mg PO DAILY [facility] Last Admin: 02/06/18 09:22 Dose: 250 mg Sodium Bicarbonate (Bicarbonate, Sodium) 650 mg PO TID [facility] Last Admin: 02/06/18 09:22 Dose: 650 mg Sodium Chloride (Flush - Normal Saline) 10 ml IVF Q12HR [facility] Last Admin: 02/06/18 09:22 Dose: Not Given Sodium Chloride (Flush - Normal Saline) 10 ml IVF PRN PRN PRN Reason: Saline Flush Last Admin: 01/29/18 21:32 Dose: 10 ml Zolpidem Tartrate (Ambien) 5 mg PO HSPRN PRN PRN Reason: Insomnia
--- NOTE | 2018-02-06 12:05 | PRG ---
DATE OF SERVICE: 02/06/2018 I am covering for Dr. Solorio. SUBJECTIVE: The patient did well overnight. No concerns for clot or need for hand irrigation and she has no complaints. OBJECTIVE: VITAL SIGNS: Have been stable and she is 93% on room air. I's and O's are little difficult given the CBI. ABDOMEN: Soft, nondistended. GENITOURINARY: Daniels catheter in place with CBI draining at a low rate and clear water consistency output in the tubing and yellow in the bag. I clamped the tubing and filled the bladder and then released as a quick test to determine if there were any clot noted and none were seen. I turned the CBI back down to a slow drip. LABORATORY DATA: No new labs. ASSESSMENT AND PLAN: We have an 87-year-old female with gross hematuria on CBI , doing very well at this time. As per the plan discussed with Dr. Solorio, we will continue CBI in a low rate today and anticipate holding it tomorrow. Continue current care. MICHAEL
--- NOTE | 2018-02-06 12:29 | PRG ---
DATE OF SERVICE: 02/06/2018 SUBJECTIVE: Ms. Saha is an 87-year-old white female seen by the Renal Service for acute kidney inj ury that was hemodynamically mediated renal dysfunction. She received empiric volume repletion. Cre atinine is much improved. Her creatinine seems to have stabilized at around 1.63 with a GFR of 30 mL per minute. She has also been seen by Urology due to the gross hematuria. Bladder wash has been do ne. Urine this morning is clear. She has also been empirically treated with antibiotics. No complaints today. No chest pain or short ness of breath. Her appetite is improving. OBJECTIVE: VITAL SIGNS: Blood pressure is 133/67, heart rate 81, respiratory rate 16, temperature 98.2, pulse o ximetry 93%. GENERAL: Awake, alert, supine, comfortable, not in distress. SKIN: Adequate turgor. HEENT: Pinkish conjunctivae. Anicteric sclera. NECK: No neck mass, no carotid bruits, no JVD. CHEST: No deformities. LUNGS: Clear breath sounds, no wheezing, no crackles. HEART: Normal sinus rhythm. No murmur, no gallops, no rubs. ABDOMEN: Globular, soft, nontender, no masses. EXTREMITIES: No edema. MEDICATIONS: Of 02/06/2018, reviewed. LABORATORY: Of 02/05/2018, sodium 134, potassium 4, chloride 107, carbon dioxide 20, BUN 40, creatin ine 1.63, calcium 7.4. Hemoglobin 8.2. ASSESSMENT AND PLAN: 1. Anemia - currently the patient has been started on weekly Epogen as well as on iron supplementati on. We will recheck CBC in a.m. - p.r.n. blood transfusion. 2. Acute kidney injury on top of her chronic renal failure, much improved prerenal azotemia after vo lume repletion. Creatinine now stabilizing. There is no indication for any dialytic intervention wi th this patient. We will be rechecking a base met. 3. Gross hematuria - on a bladder wash. Doing better. Urology is following. We will recheck base met and CBC in a.m.
[2018-02-06] MEDS: Sodium Chloride 0.9% 1,000 ML IV SCH ×2 (12:48→19:12)
[2018-02-06] MEDS: Estrogens, Conjugated 30 GM TUBE VAG SCH (20:39)
[2018-02-06] MEDS: Acetaminophen 325 MG TAB PO PRN (20:39)
[2018-02-07 04:17] LABS: #Eosinphils 0.1 thou/uL (0.0-0.7); #Lymphocytes 1.6 thou/uL (1.20-3.40); #Monocytes 0.3 thou/uL (0.11-0.59); #Neutrophils 2.6 thou/uL (1.40-6.50); %Basophils 0.8 % (0.0-1.0); %Eosinophils 1.4 % (0.0-10.0); %Monocytes 7.3 % (0.0-10.0); %Neutrophils 56.5 % (42.0-75.0); Hemoglobin 7.1 g/dL (12.0-16.0); Mean Corpuscular HGB CONC 34.8 g/dL (32.0-36.0); Mean Corpuscular Hemoglobin 32.7 pg (27.0-31.0); Platelet Count 171 thou/uL (130-400); Red Blood Cell (RBC) Count 2.18 mill/uL (4.20-5.40); White Blood Cell (WBC) Count 4.6 thou/uL (4.8-10.8)
[2018-02-07 04:39] LABS: Anion Gap 10 mmol/L (10-20); BUN (Urea Nitrogen) 47 mg/dL (9.8-20.1); Calc. Creatinine Clearance 28 mL/min (70-130); Calcium 7.3 mg/dL (7.8-10.44); Carbon Dioxide 22 mmol/L (23-31); Chloride 109 mmol/L (98-107); Estimated GFR-MDRD 36; Glucose 98 mg/dL (83-110); Potassium 3.6 mmol/L (3.5-5.1); Sodium 137 mmol/L (136-145)
[2018-02-07] MEDS: Cipro 250 MG TAB PO SCH ×2 (05:43→20:41)
[2018-02-07] MEDS ORDERED: Diabetic Tussin 200 MG/10 ML UDCUP PO PRN (06:37)
[2018-02-07] MEDS ORDERED: Chloraseptic Spray 180 ml Bottle PO PRN (06:37)
[2018-02-07] MEDS ORDERED: Mag-Al 1200 mg/1200 mg/30 ML UDCUP PO PRN (06:37)
[2018-02-07] MEDS ORDERED: HYDROcodone/Acetaminophen 5/325 mg Tablet PO PRN (06:37)
[2018-02-07] MEDS ORDERED: Eucerin (Mineral Oil/Petrolatum,White) 30 gm Jar TOP PRN (06:37)
[2018-02-07] MEDS ORDERED: Sodium Chloride 0.65% Nasal 44 ML BOT EA NARE PRN (06:37)
[2018-02-07] MEDS ORDERED: Loratadine 10 MG TAB PO PRN (06:37)
[2018-02-07] MEDS ORDERED: Milk Of Magnesia 30 ML UDCUP PO PRN (06:37)
[2018-02-07] MEDS ORDERED: Artificial Tears 18 DROP/0.9 ML EA EYE PRN (06:37)
[2018-02-07] MEDS ORDERED: hydrALAZINE 20 MG/ML VIAL SLOW IVP PRN (06:37)
[2018-02-07] MEDS ORDERED: Ondansetron HCl/PF 4 MG/2 ML Vial IVP PRN (06:37)
[2018-02-07] MEDS ORDERED: Ondansetron ODT 4 MG TAB PO PRN (06:37)
[2018-02-07] MEDS ORDERED: Calcium Carbonate 500 MG ChewTAB PO PRN (06:37)
[2018-02-07] MEDS ORDERED: Senokot 8.6 MG TAB PO PRN (06:37)
[2018-02-07 07:12] LABS: Magnesium 1.4 mg/dL (1.6-2.6); Phosphorus 5.1 mg/dL (2.3-4.7)
[2018-02-07] MEDS: Saccharomyces boulardii 250 MG CAP PO SCH (07:57)
[2018-02-07] MEDS: Famotidine 20 MG TAB PO SCH (07:57)
[2018-02-07] MEDS: Ferrous Sulfate 325 MG TAB PO SCH ×2 (07:57→16:15)
[2018-02-07] MEDS: Sodium Bicarbonate Tab 325 MG TAB PO SCH ×3 (07:57→20:41)
--- NOTE | 2018-02-07 08:59 | PDOC.PN ---
- Subjective Encounter Start Date: 02/07/18 Encounter Start Time: 08:20 Patient seen and examined for hematuria. No new complaints. No overnight events - Objective Resuscitation Status: Resuscitation Status DNR:Do Not Resuscitate MAR Reviewed: Yes Vital Signs & Weight: Vital Signs (12 hours) Temp Pulse Resp BP BP Pulse Ox 02/07/18 07:57 79 02/07/18 07:46 98 F 79 16 174/69 H 95 02/06/18 20:58 98.3 F 82 16 176/72 H 93 L Weight Admit Weight 127 lb 12.8 oz Weight 134 lb 9.6 oz I&O: 02/06/18 02/07/18 02/08/18 06:59 06:59 06:59 Intake Total 16810 8241 Output Total 06893 9163 Balance -7239 -323 Result Diagrams: 02/07/18 04:00 02/07/18 04:00 Phys Exam - Physical Examination Constitutional: NAD HEENT: PERRLA, moist MMs, sclera anicteric Neck: no JVD, supple Respiratory: no wheezing, no rales, no rhonchi Cardiovascular: RRR, no significant murmur, no rub Gastrointestinal: soft, non-tender, no distention, positive bowel sounds cardenas + Musculoskeletal: no edema, pulses present Neurological: non-focal, normal sensation, moves all 4 limbs Psychiatric: normal affect, A&O x 3 Skin: no rash, normal turgor Dx/Plan (1) ARF (acute renal failure) Status: Acute Comment: improving with IVF (2) Acute blood loss anemia Code(s): D62 - ACUTE POSTHEMORRHAGIC ANEMIA Status: Acute (3) Atrophic vaginitis Code(s): N95.2 - POSTMENOPAUSAL ATROPHIC VAGINITIS Status: Acute Comment: on Estrogen (4) Bladder wall thickening Code(s): N32.89 - OTHER SPECIFIED DISORDERS OF BLADDER Status: Acute Comment : s/p biopsy - No malignancy (5) Electrolyte abnormality Code(s): E87.8 - OTH DISORDERS OF ELECTROLYTE AND FLUID BALANCE, NEC Status: Acute Comment: Hypokalemia/Hypophosphatemia/Hyponatremia/Hypomagnesemia (6) Hematuria, gross Status: Acute Comment: improving (7) Metabolic acidosis Code(s): E87.2 - ACIDOSIS Status: Acute Comment: improving. on Sodium bicarb PO (8) UTI (urinary tract infection) Status: Acute Qualifiers: Urinary tract infection type: acute cystitis Comment: on Atbx (9) Weight loss, abnormal Code(s): R63.4 - ABNORMAL WEIGHT LOSS Status: Acute Comment: Moderate protein calorie malnutrition (10) Essential hypertension Code(s): I10 - ESSENTIAL (PRIMARY) HYPERTENSION Status: Chronic Comment: Cont Amlodipine (11) HTN (hypertension) Code(s): I10 - ESSENTIAL (PRIMARY) HYPERTENSION Status: Chronic Comment: on Amlodipine (12) Hypothermia Code(s): T68.XXXA - HYPOTHERMIA, INITIAL ENCOUNTER Status: Resolved - Plan cont current plan of care, plan discussed w/ family * will transfuse 1 unit PRBC today for low H & H * repeat labs tomorrow * increase amlodipine 5 mg po daily * DC IVF * discussed with daughter * still on CBI, may be will DC CBI today and monitor for any recurrent hematuria * voiding trial tomorrow * pt's daughter is learning about self catheterization for pt at home. * medication reviewed as below * symptomatic treatment Review of Systems - Review of Systems Eyes: negative: Pain, Vision Change, Conjunctivae Inflammation, Eyelid Inflammation, Redness, Other ENT: negative: Ear Pain, Ear Discharge, Nose Pain, Nose Discharge, Nose Congestion, Mouth Pain, Mouth Swelling, Throat Pain, Throat Swelling, Other Respiratory: negative: Cough, Dry, Shortness of Breath, Hemoptysis, SOB with Excertion, Pleuritic Pain, Sputum, Wheezing Cardiovascular: negative: chest pain, palpitations, orthopnea, paroxysmal nocturnal dyspnea, edema, light headedness, other Gastrointestinal: negative: Nausea, Vomiting, Abdominal Pain, Diarrhea, Constipation, Melena, Hematochezia, Other Genitourinary: negative: Dysuria, Frequency, Incontinence, Hematuria, Retention , Other Musculoskeletal: negative: Neck Pain, Shoulder Pain, Arm Pain, Back Pain, Hand Pain, Leg Pain, Foot Pain, Other Skin: negative: Rash, Lesions, Wyatt, Bruising, Other - Medications/Allergies Allergies/Adverse Reactions: Allergies Allergy/AdvReac Type Severity Reaction Status Date / Time bacitracin Allergy Unknown Verified 03/24/13 03:53 [From Neosporin ([id number])] bacitracin zinc Allergy Unknown Verified 03/24/13 03:53 [From Neosporin ([id number])] neomycin sulfate Allergy Unknown Verified 03/24/13 03:53 [From Neosporin ([id number])] Penicillins Allergy Unknown Verified 03/24/13 03:53 polymyxin B Allergy Unknown Verified 03/24/13 03:53 [From Neosporin ([id number])] polymyxin B sulfate Allergy Unknown Verified 03/24/13 03:53 [From Polysporin] Medications: Current Medications Acetaminophen (Tylenol) 650 mg PO Q4H PRN PRN Reason: Headache/Fever or Pain Last Admin: 02/06/18 20:39 Dose: 650 mg Hydrocodone Bitart/Acetaminophen ([place] 5/325) 1 tab PO Q6H PRN PRN Reason: Moderate Pain (4-6) Al Hydroxide/Mg Hydroxide (Maalox) 15 ml PO Q4H PRN PRN Reason: Heartburn or Indigestion Amlodipine Besylate (Norvasc) 5 mg PO DAILY [facility] Last Admin: 02/07/18 07:57 Dose: 5 mg Artificial Tears (Tears Naturale) 0 drop EA EYE PRN PRN PRN Reason: Dry Eyes Calcium Carbonate (Tums) 1,000 mg PO Q4H PRN PRN Reason: Heartburn or Indigestion Ciprofloxacin (Cipro) 250 mg PO 06,1999 [facility] Last Admin: 02/07/18 05:43 Dose: 250 mg Epoetin Zeke (Procrit) 7,500 units SC Q7D [facility] Last Admin: 02/04/18 13:06 Dose: 7,500 units Estrogens Conjugated (Premarin Cream) 1.5 gm VAG HS [facility] Last Admin: 02/06/18 20:39 Dose: Not Given Famotidine (Pepcid) 20 mg PO DAILY [facility] Last Admin: 02/07/18 07:57 Dose: 20 mg Ferrous Sulfate (Feosol) 325 mg PO BID-WM [facility] Last Admin: 02/07/18 07:57 Dose: 325 mg Guaifenesin (Robitussin Sf) 200 mg PO Q4H PRN PRN Reason: Cough Guaifenesin/Dextromethorphan (Robitussin Dm) 15 ml PO Q4H PRN PRN Reason: Cough Hydralazine HCl (Apresoline) 10 mg SLOW IVP Q4H PRN PRN Reason: SBP Greater Than 170 Magnesium Sulfate 3 gm/ Sodium (Chloride) 106 mls @ 100 mls/hr IVPB ONE [facility] Loperamide HCl (Imodium) 2 mg PO PRN PRN PRN Reason: Diarrhea/Loose Stools Last Admin: 02/03/18 22:50 Dose: 2 mg Loratadine (Claritin) 10 mg PO DAILYPRN PRN PRN Reason: Sinus Symptoms Magnesium Hydroxide (Milk Of Magnesium) 30 ml PO DAILYPRN PRN PRN Reason: Constipation Mineral Oil/White Petrolatum (Eucerin Cream) 0 gm TOP BIDPRN PRN PRN Reason: Dry Skin Miscellaneous Medication (Pharmacy To Dose) 1 each IVPB DAILYPRN PRN PRN Reason: LABS Ondansetron HCl (Zofran Odt) 4 mg PO Q6H PRN PRN Reason: Nausea/Vomiting Ondansetron HCl (Zofran) 4 mg IVP Q6H PRN PRN Reason: Nausea/Vomiting Phenol (Chloraseptic [place] 180 Ml Bot) 0 ml PO PRN PRN PRN Reason: Sore Throat Saccharomyces Boulardii (Florastor) 250 mg PO DAILY [facility] Last Admin: 02/07/18 07:57 Dose: 250 mg Senna (Senokot) 2 tab PO HSPRN PRN PRN Reason: Constipation Sodium Bicarbonate (Bicarbonate, Sodium) 650 mg PO TID [facility] Last Admin: 02/07/18 07:57 Dose: 650 mg Sodium Chloride (Flush - Normal Saline) 10 ml IVF Q12HR [facility] Last Admin: 02/07/18 07:58 Dose: Not Given Sodium Chloride (Flush - Normal Saline) 10 ml IVF PRN PRN PRN Reason: Saline Flush Last Admin: 01/29/18 21:32 Dose: 10 ml Sodium Chloride ([place] Nasal [place] 0.65%) 0 ml EA NARE QIDPRN PRN PRN Reason: Nasal Congestion Zolpidem Tartrate (Ambien) 5 mg PO HSPRN PRN PRN Reason: Insomnia
[2018-02-07] MEDS ORDERED: Amlodipine 5 MG TAB PO SCH (09:00)
[2018-02-07] MEDS ORDERED: Magnesium Sulfate 3 GM in Sodium Chloride 0.9% 100 ML IVPB SCH (09:30)
[2018-02-07] MEDS: Estrogens, Conjugated 30 GM TUBE VAG SCH (20:42)
[2018-02-08 05:04] LABS: #Basophils 0.1 thou/uL (0.0-0.2); #Eosinphils 0.1 thou/uL (0.0-0.7); #Lymphocytes 1.6 thou/uL (1.20-3.40); #Monocytes 0.4 thou/uL (0.11-0.59); #Neutrophils 3.3 thou/uL (1.40-6.50); %Eosinophils 1.4 % (0.0-10.0); %Lymphocytes 28.5 % (21.0-51.0); %Neutrophils 61.2 % (42.0-75.0); Hemoglobin 8.9 g/dL (12.0-16.0); Mean Corpuscular HGB CONC 35.1 g/dL (32.0-36.0); Mean Corpuscular Hemoglobin 33.1 pg (27.0-31.0); Mean Corpuscular Volume 94.2 fl (81.0-99.0); Mean Platelet Volume 6.6 fL (7.4-10.4); Platelet Count 202 thou/uL (130-400); RBC Distribution Width 16.1 % (11.5-14.5); Red Blood Cell (RBC) Count 2.69 mill/uL (4.20-5.40); White Blood Cell (WBC) Count 5.4 thou/uL (4.8-10.8)
[2018-02-08 05:14] LABS: Anion Gap 10 mmol/L (10-20); BUN (Urea Nitrogen) 39 mg/dL (9.8-20.1); Calc. Creatinine Clearance 25 mL/min (70-130); Calcium 7.6 mg/dL (7.8-10.44); Carbon Dioxide 20 mmol/L (23-31); Chloride 110 mmol/L (98-107); Estimated GFR-MDRD 32; Glucose 95 mg/dL (83-110); Potassium 3.8 mmol/L (3.5-5.1); Sodium 136 mmol/L (136-145)
[2018-02-08] MEDS: Cipro 250 MG TAB PO SCH ×2 (06:07→18:16)
--- NOTE | 2018-02-08 07:03 | PRG ---
DATE OF SERVICE: 02/07/2018 SUBJECTIVE: The patient did well overnight, but did require hand irrigation x1 overnight. She has n o complaints other than she just has too many tubes and want to get a lot of stuff off of her. Her vitals have been stable. PHYSICAL EXAMINATION: ABDOMEN: Soft. CBI is actually like water running through; however, there is a couple of red clots noted in the tubing, nothing significant rinsed through when the tubing was clamped and CBI filled an d then released. LABORATORY DATA: Reveal an H&H that dropped slightly more at 7.1 and 20.5 with an improved creatinin e at 1.38. ASSESSMENT AND PLAN: An 87-year-old female with gross hematuria improving, but still requiring some hand irrigation. We will attempt to wean the CBI off today. Her H&H is significantly anemic and I d o think this is from any bleeding in the last 24 hours. I suspect this is dilution and I will leave transfusion up to the primary team if they feel it is indicated.
[2018-02-08] MEDS: Sodium Bicarbonate Tab 325 MG TAB PO SCH ×2 (08:08→15:00)
[2018-02-08] MEDS: Famotidine 20 MG TAB PO SCH (08:11)
[2018-02-08] MEDS: Saccharomyces boulardii 250 MG CAP PO SCH (08:11)
[2018-02-08] MEDS: Ferrous Sulfate 325 MG TAB PO SCH ×2 (08:11→18:08)
[2018-02-08] MEDS ORDERED: Amlodipine 10 MG TAB PO SCH (09:00)
--- NOTE | 2018-02-08 09:37 | PRG ---
DATE OF SERVICE: 02/08/2018 SERVICE: Renal Medicine. SUBJECTIVE: Ms. Saha is an 87-year-old white female who was seen by the Renal Service for an acute kidney injury that was hemodynamically mediated renal dysfunction. Over time with volume repletion, renal function has stabilized. Her most recent creatinine today is noted at 1.52 mg percent, which is most likely her new baseline. She continues to have continuous bladder irrigation due to the vasquez s hematuria. This morning, the urine is clear. Awaiting the go-ahead from the urologist for dischar ge. No other complaints, no chest pain or shortness of breath. PHYSICAL EXAMINATION: VITAL SIGNS: Blood pressure is 143/65, heart rate 81, respiratory rate 16, temperature 97.9, pulse o x 94%. GENERAL: Noted to be awake, alert, supine, comfortable, not in distress. SKIN: Adequate turgor. HEENT: Pinkish conjunctiva, anicteric sclerae. NECK: No neck mass, no carotid bruits, no JVD. CHEST: No deformities. LUNGS: Clear breath sounds. No wheezing, no crackles. HEART: Normal sinus rhythm. No murmur, no gallops or rubs. ABDOMEN: Globular, soft, nontender. No masses. EXTREMITIES: No edema, no deformities. MEDICATIONS: Of 02/08/2018 was reviewed. LABORATORY DATA: Of 02/08/2018, sodium 136, potassium 3.8, chloride 110, carbon dioxide 20, BUN 39, creatinine 1.52, calcium 7.6. Hemoglobin which is 8.9, hematocrit 25.3. ASSESSMENT AND PLAN: 1. Acute kidney injury - hemodynamically mediated renal dysfunction, much improved. Continue curren t management. There is no indication for any dialytic intervention. 2. Chronic renal failure, uncertain etiology. The creatinine of 1.63 may be her new baseline. 3. Anemia, currently on Epogen and iron supplementation. 4. Gross hematuria, on continuous bladder irrigation. Urology is following. Agree with current management.
--- NOTE | 2018-02-08 10:46 | PDOC.PN ---
- Subjective Encounter Start Date: 02/08/18 Encounter Start Time: 08:30 Patient seen and examined for hematuria. No new complaints. No overnight events - Objective Resuscitation Status: Resuscitation Status DNR:Do Not Resuscitate MAR Reviewed: Yes Vital Signs & Weight: Vital Signs (12 hours) Temp Pulse Resp BP BP Pulse Ox 02/08/18 08:11 81 143/65 H 02/08/18 07:53 97.9 F 81 16 143/65 H 94 L Weight Admit Weight 127 lb 12.8 oz Weight 134 lb 9.6 oz I&O: 02/07/18 02/08/18 02/09/18 06:59 06:59 06:59 Intake Total 8247 720 500 Output Total 9150 2500 Balance -903 -0860 500 Result Diagrams: 02/08/18 04:25 02/08/18 04:25 Phys Exam - Physical Examination Constitutional: NAD HEENT: PERRLA, moist MMs, sclera anicteric Neck: no JVD, supple Respiratory: no wheezing, no rales, no rhonchi Cardiovascular: RRR, no significant murmur, no rub Gastrointestinal: soft, non-tender, no distention, positive bowel sounds Musculoskeletal: no edema, pulses present Neurological: non-focal, normal sensation, moves all 4 limbs Psychiatric: normal affect, A&O x 3 Skin: no rash, normal turgor Dx/Plan (1) ARF (acute renal failure) Status: Acute Comment: improving with IVF (2) Acute blood loss anemia Code(s): D62 - ACUTE POSTHEMORRHAGIC ANEMIA Status: Acute (3) Atrophic vaginitis Code(s): N95.2 - POSTMENOPAUSAL ATROPHIC VAGINITIS Status: Acute Comment: on Estrogen (4) Bladder wall thickening Code(s): N32.89 - OTHER SPECIFIED DISORDERS OF BLADDER Status: Acute Comment : s/p biopsy - No malignancy (5) Electrolyte abnormality Code(s): E87.8 - OTH DISORDERS OF ELECTROLYTE AND FLUID BALANCE, NEC Status: Acute Comment: Hypokalemia/Hypophosphatemia/Hyponatremia/Hypomagnesemia (6) Hematuria, gross Status: Acute Comment: improving (7) Metabolic acidosis Code(s): E87.2 - ACIDOSIS Status: Acute Comment: improving. on Sodium bicarb PO (8) UTI (urinary tract infection) Status: Acute Qualifiers: Urinary tract infection type: acute cystitis Comment: on Atbx (9) Weight loss, abnormal Code(s): R63.4 - ABNORMAL WEIGHT LOSS Status: Acute Comment: Moderate protein calorie malnutrition (10) Essential hypertension Code(s): I10 - ESSENTIAL (PRIMARY) HYPERTENSION Status: Chronic Comment: Cont Amlodipine (11) HTN (hypertension) Code(s): I10 - ESSENTIAL (PRIMARY) HYPERTENSION Status: Chronic Comment: on Amlodipine (12) Hypothermia Code(s): T68.XXXA - HYPOTHERMIA, INITIAL ENCOUNTER Status: Resolved - Plan cont current plan of care, plan discussed w/ family, continue antibiotics * CBI off, no further hematuria * may be cardenas out today and then intermittent catheterization * if urology ok, will discharge later on today. * see my discharge summery Review of Systems - Review of Systems Eyes: negative: Pain, Vision Change, Conjunctivae Inflammation, Eyelid Inflammation, Redness, Other ENT: negative: Ear Pain, Ear Discharge, Nose Pain, Nose Discharge, Nose Congestion, Mouth Pain, Mouth Swelling, Throat Pain, Throat Swelling, Other Respiratory: negative: Cough, Dry, Shortness of Breath, Hemoptysis, SOB with Excertion, Pleuritic Pain, Sputum, Wheezing Cardiovascular: negative: chest pain, palpitations, orthopnea, paroxysmal nocturnal dyspnea, edema, light headedness, other Gastrointestinal: negative: Nausea, Vomiting, Abdominal Pain, Diarrhea, Constipation, Melena, Hematochezia, Other Genitourinary: negative: Dysuria, Frequency, Incontinence, Hematuria, Retention , Other Musculoskeletal: negative: Neck Pain, Shoulder Pain, Arm Pain, Back Pain, Hand Pain, Leg Pain, Foot Pain, Other - Medications/Allergies Allergies/Adverse Reactions: Allergies Allergy/AdvReac Type Severity Reaction Status Date / Time bacitracin Allergy Unknown Verified 03/24/13 03:53 [From Neosporin ([id number])] bacitracin zinc Allergy Unknown Verified 03/24/13 03:53 [From Neosporin ([id number])] neomycin sulfate Allergy Unknown Verified 03/24/13 03:53 [From Neosporin ([id number])] Penicillins Allergy Unknown Verified 03/24/13 03:53 polymyxin B Allergy Unknown Verified 03/24/13 03:53 [From Neosporin ([id number]-lfe-[id number])] polymyxin B sulfate Allergy Unknown Verified 03/24/13 03:53 [From Polysporin] Medications: Current Medications Acetaminophen (Tylenol) 650 mg PO Q4H PRN PRN Reason: Headache/Fever or Pain Last Admin: 02/06/18 20:39 Dose: 650 mg Hydrocodone Bitart/Acetaminophen ([place] 5/325) 1 tab PO Q6H PRN PRN Reason: Moderate Pain (4-6) Al Hydroxide/Mg Hydroxide (Maalox) 15 ml PO Q4H PRN PRN Reason: Heartburn or Indigestion Amlodipine Besylate (Norvasc) 10 mg PO DAILY [facility] Last Admin: 02/08/18 08:11 Dose: 10 mg Artificial Tears (Tears Naturale) 0 drop EA EYE PRN PRN PRN Reason: Dry Eyes Calcium Carbonate (Tums) 1,000 mg PO Q4H PRN PRN Reason: Heartburn or Indigestion Ciprofloxacin (Cipro) 250 mg PO 599,1999 [facility] Last Admin: 02/08/18 06:07 Dose: 250 mg Epoetin Zeke (Procrit) 7,500 units SC Q7D [facility] Last Admin: 02/04/18 13:06 Dose: 7,500 units Estrogens Conjugated (Premarin Cream) 1.5 gm VAG HS [facility] Last Admin: 02/07/18 20:42 Dose: 1.5 gm Famotidine (Pepcid) 20 mg PO DAILY [facility] Last Admin: 02/08/18 08:11 Dose: 20 mg Ferrous Sulfate (Feosol) 325 mg PO BID-[facility] Last Admin: 02/08/18 08:11 Dose: 325 mg Guaifenesin (Robitussin Sf) 200 mg PO Q4H PRN PRN Reason: Cough Guaifenesin/Dextromethorphan (Robitussin Dm) 15 ml PO Q4H PRN PRN Reason: Cough Hydralazine HCl (Apresoline) 10 mg SLOW IVP Q4H PRN PRN Reason: SBP Greater Than 170 Loperamide HCl (Imodium) 2 mg PO PRN PRN PRN Reason: Diarrhea/Loose Stools Last Admin: 02/03/18 22:50 Dose: 2 mg Loratadine (Claritin) 10 mg PO DAILYPRN PRN PRN Reason: Sinus Symptoms Magnesium Hydroxide (Milk Of Magnesium) 30 ml PO DAILYPRN PRN PRN Reason: Constipation Mineral Oil/White Petrolatum (Eucerin Cream) 0 gm TOP BIDPRN PRN PRN Reason: Dry Skin Miscellaneous Medication (Pharmacy To Dose) 1 each IVPB DAILYPRN PRN PRN Reason: LABS Ondansetron HCl (Zofran Odt) 4 mg PO Q6H PRN PRN Reason: Nausea/Vomiting Ondansetron HCl (Zofran) 4 mg IVP Q6H PRN PRN Reason: Nausea/Vomiting Phenol (Chloraseptic [place] 180 Ml Bot) 0 ml PO PRN PRN PRN Reason: Sore Throat Saccharomyces Boulardii (Florastor) 250 mg PO DAILY [facility] Last Admin: 02/08/18 08:11 Dose: 250 mg Senna (Senokot) 2 tab PO HSPRN PRN PRN Reason: Constipation Sodium Bicarbonate (Bicarbonate, Sodium) 650 mg PO TID [facility] Last Admin: 02/08/18 08:08 Dose: 650 mg Sodium Chloride (Flush - Normal Saline) 10 ml IVF Q12HR [facility] Last Admin: 02/08/18 08:12 Dose: 10 ml Sodium Chloride (Flush - Normal Saline) 10 ml IVF PRN PRN PRN Reason: Saline Flush Last Admin: 01/29/18 21:32 Dose: 10 ml Sodium Chloride ([place] Nasal [place] 0.65%) 0 ml EA NARE QIDPRN PRN PRN Reason: Nasal Congestion Zolpidem Tartrate (Ambien) 5 mg PO HSPRN PRN PRN Reason: Insomnia
--- NOTE | 2018-02-08 10:54 | DIS ---
DATE OF ADMISSION: 01/26/2018 DATE OF DISCHARGE: 02/08/2018 PRIMARY CARE PHYSICIAN: Dr. Vish Wynn. DISCHARGE DISPOSITION: Home with home health. PRIMARY DISCHARGE DIAGNOSES: Acute kidney failure, acute blood loss anemia, atrophic vaginitis, cyst itis, abnormal electrolytes, gross hematuria, metabolic acidosis, urinary tract infection, abnormal w eight loss, hypothermia on admission. SECONDARY DISCHARGE DIAGNOSES: Hypertension, dyslipidemia. PRIMARY PROCEDURES AND OPERATIONS: Continuous bladder irrigation, cystoscopy and bladder biopsy. RADIOLOGICAL INVESTIGATION: CT brain was negative for any acute intracranial process. Renal ultraso und was negative for obstructive uropathy. Patient had urothelial mass versus debris within urinary bladder with extensive bladder wall thickening. Chest, abdomen, and pelvis CT scan in the emergency room showed extensive wall thickening of the urinary bladder. The pathology report came back negativ e for malignancy from bladder. PICC line was placed during this admission. SIGNIFICANT LABORATORY DATA: WBC 5.4, hemoglobin 8.9, platelet 202. Sodium 136, potassium 3.8, BUN 39, creatinine 1.52, calcium 7.6. Urinalysis suggestive of UTI. Urine culture grew gram negative ro ds. C. diff negative. DISCHARGE MEDICATIONS: Amlodipine 10 mg p.o. daily, Cipro 250 mg p.o. b.i.d. for 7 days, Pepcid 20 m g daily, ferrous sulfate 325 mg p.o. b.i.d., Systane eyedrops q.i.d., Crestor 20 mg p.o. daily, Elaina stor 250 mg p.o. daily for 7 days, sodium bicarbonate 650 mg p.o. t.i.d., Ambien 5 mg p.o. at bedtime p.r.n. CONTRAINDICATIONS: None. CODE STATUS: DNR. INPATIENT CONSULTANTS: Dr. Solorio, urologist, was following while in hospital. Dr. Guadarrama was consulted for acute kidney failure. TEST RESULTS PENDING ON DISCHARGE: None. ALLERGIES: BACITRACIN, NEOMYCIN, PENICILLIN. DISCHARGE PLAN: Post hospital, the patient will follow up with Dr. Solorio, urologist, Dr. Vish rojo in 1 week. HOSPITAL COURSE: An 87-year-old female with above-mentioned medical problem who was admitted by Dr. George on 01/27/2018. Please see his H&P for further detail. This patient had significant weig ht loss. She was found with metabolic acidosis and acute kidney failure. During this admission, the patient had CT chest, abdomen, and pelvis which showed extensive bladder wall thickening. Patient a lso had blood clot in her bladder. Urology was consulted and they did cystoscopy, ureteroscopy. 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 Her gross hematuria resolved with bladder irrigation. Subsequently, bladder irrigation was stopped. Even after that, the patient was not having any further hematuria. The patient does have urinary re tention and atrophic vaginitis and that is why Urology recommended self-intermittent catheterization at home 4 times per day at least. The patient's daughter was given patient education about doing marta f catheterization. Patient's daughter is main cut lace machine operator for the patient. Urology recommended to do voiding trial and subsequently patient will be discharged home today. Whil e in hospital, the patient had abnormal electrolytes, which was replaced and corrected. She had acut e kidney failure with a creatinine of 1.68 and that was also improved to creatinine 1.38. Her cultur e grew only scant amount of gram negative zayda. Blood culture remained negative. She had leukocytosi s and that is why we did check stool for C. diff that was negative. Echocardiography during this adm ission showed normal EF. The patient is overall doing very well. She is expressing her wish to go home today. The patient's daughter was present at bedside today. The patient and family member was given instruction about dis charge medications. Discharge plan was discussed with them as well. The patient is seen and examined at bedside today.
[2018-02-08 17:13] VITALS: BP 146/75; TEMP 98.3
== END 2018-02-08 19:30 | disposition home health service (06) | DRG 669 ==
LOC: ERS 15:47 → 2NO 17:17 → T4-B 01-30 16:33
PROVIDERS: ADMIT Emergency Medicine; ATTEND Emergency Medicine
PROC: 0T5B8ZZ Destruction of Bladder, Via Natural or Artificial Opening Endoscopic (ICD-10-PCS; principal; 2018-01-28)
PROC: 0TBB8ZX Excision of Bladder, Via Natural or Artificial Opening Endoscopic, Diagnostic (ICD-10-PCS; 2018-01-28)
PROC: 0T7D8ZZ Dilation of Urethra, Via Natural or Artificial Opening Endoscopic (ICD-10-PCS; 2018-01-28)
PROC: 3E0 Administration, Physiological Systems and Anatomical Regions, Introduction (ICD-10-PCS; 2018-01-28)
PROC: 05H833Z Insertion of Infusion Device into Left Axillary Vein, Percutaneous Approach (ICD-10-PCS; 2018-01-28)
PROC: 30233N1 Transfusion of Nonautologous Red Blood Cells into Peripheral Vein, Percutaneous Approach (ICD-10-PCS; 2018-02-04)
DX: N17.9 Acute kidney failure, unspecified (principal); E87.2 Acidosis; D62 Acute posthemorrhagic anemia; N30.81 Other cystitis with hematuria; B96.20 Unspecified Escherichia coli [E. coli] as the cause of diseases classified elsewhere; N32.89 Other specified disorders of bladder; N35.12 Postinfective urethral stricture, not elsewhere classified, female; R63.4 Abnormal weight loss; N95.2 Postmenopausal atrophic vaginitis; E88.09 Other disorders of plasma-protein metabolism, not elsewhere classified; D69.6 Thrombocytopenia, unspecified; Z66 Do not resuscitate; I12.9 Hypertensive chronic kidney disease with stage 1 through stage 4 chronic kidney disease, or unspecified chronic kidney disease; N18.9 Chronic kidney disease, unspecified; E83.39 Other disorders of phosphorus metabolism; E87.6 Hypokalemia; F03.90 Unspecified dementia, unspecified severity, without behavioral disturbance, psychotic disturbance, mood disturbance, and anxiety; T68.XXXA Hypothermia, initial encounter; M19.90 Unspecified osteoarthritis, unspecified site; Z68.21 Body mass index [BMI] 21.0-21.9, adult; Z88.0 Allergy status to penicillin
CPT/HCPCS: 36415; 36430; 36569; 70450; 71250; 74177; 76770; 80048; 80053; 80069; 81001; 82570; 82728; 83540; 83550; 83605; 83735; 84100; 84300; 85014; 85018; 85025; 86850; 86900; 86901; 87086; 87324; 87449; 88305; 93005; 93010; 93306; 96361; 96365; A4216; C1751; G8978-GP-CK; G8978-GP-CL; G8979-GP-CI; G8979-GP-CK; G8987-GO-CK; G8988-GO-CI; J0696; J1580; J1644; J1650; J2704; J3010; J3475; J3490; J7050; J7070; P9016; Q4081; Q9961

== ENCOUNTER 2018-02-09 07:56 | Observation (INO) | payer MEDICARE ==
[2018-02-09 10:39] LABS: #Eosinphils 0.1 thou/uL (0.0-0.7); #Lymphocytes 1.9 thou/uL (1.20-3.40); #Monocytes 0.4 thou/uL (0.11-0.59); #Neutrophils 3.4 thou/uL (1.40-6.50); %Basophils 0.7 % (0.0-1.0); %Eosinophils 0.9 % (0.0-10.0); %Lymphocytes 32.2 % (21.0-51.0); %Monocytes 7.6 % (0.0-10.0); %Neutrophils 58.6 % (42.0-75.0); Hemoglobin 9.1 g/dL (12.0-16.0); Mean Corpuscular HGB CONC 34.2 g/dL (32.0-36.0); Mean Corpuscular Hemoglobin 32.5 pg (27.0-31.0); Mean Corpuscular Volume 94.9 fl (81.0-99.0); Mean Platelet Volume 6.5 fL (7.4-10.4); Platelet Count 218 thou/uL (130-400); Red Blood Cell (RBC) Count 2.81 mill/uL (4.20-5.40); White Blood Cell (WBC) Count 5.8 thou/uL (4.8-10.8)
[2018-02-09 11:01] LABS: ALT (SGPT) 32 U/L (8-55); AST (SGOT) 33 U/L (5-34); Albumin 2.8 g/dL (3.4-4.8); Alkaline Phosphatase 152 U/L (40-150); Anion Gap 14 mmol/L (10-20); BUN (Urea Nitrogen) 37 mg/dL (9.8-20.1); Bilirubin, Total 0.4 mg/dL (0.2-1.2); Calc. Creatinine Clearance 0 mL/min (70-130); Calcium 7.9 mg/dL (7.8-10.44); Carbon Dioxide 18 mmol/L (23-31); Chloride 110 mmol/L (98-107); Estimated GFR-MDRD 23; Globulin 1.6 g/dL (2.4-3.5); Glucose 92 mg/dL (83-110); Magnesium 2.1 mg/dL (1.6-2.6); Potassium 4.1 mmol/L (3.5-5.1); Protein, Total 4.4 g/dL (6.0-8.3); Sodium 138 mmol/L (136-145)
[2018-02-09 11:05] LABS: CKMB 2.8 ng/mL (0-6.6); Troponin I 0.036 ng/mL (< 0.028)
[2018-02-09 13:45] LABS: Troponin I 0.041 ng/mL (< 0.028)
[2018-02-09 17:04] LABS: Troponin I 0.035 ng/mL (< 0.028)
[2018-02-09] MEDS ORDERED: Ondansetron HCl/PF 4 MG/2 ML Vial IVP PRN (19:22)
[2018-02-09] MEDS ORDERED: Ondansetron ODT 4 MG TAB PO PRN (19:22)
[2018-02-09] MEDS ORDERED: hydrALAZINE 20 MG/ML VIAL SLOW IVP PRN (19:22)
[2018-02-09] MEDS ORDERED: Acetaminophen 500 MG TAB PO PRN (19:22)
[2018-02-09] MEDS ORDERED: cloNIDine 0.1 MG TAB PO PRN (19:22)
[2018-02-09] MEDS ORDERED: Sodium Chloride 0.9% 1,000 ML IV SCH (19:30)
[2018-02-09 20:43] VITALS: BMI 26.9
[2018-02-09] MEDS ORDERED: Famotidine 20 MG TAB PO SCH (21:00)
[2018-02-09] MEDS: Cipro 250 MG TAB PO SCH (21:24)
[2018-02-09] MEDS: Lacri-Lube Opth Oint 3.5 GM TUBE R EYE SCH (21:25)
[2018-02-09] MEDS: Polyethylene Glycol OPTH DROP 15 ML BOT EA EYE SCH (21:25)
[2018-02-09] MEDS: Sodium Bicarbonate Tab 325 MG TAB PO SCH (21:25)
--- NOTE | 2018-02-10 03:12 | HP ---
DATE OF ADMISSION: 02/09/2018 PRIMARY CARE PROVIDER: Vish Wynn MD CHIEF COMPLAINT: Confusion. HISTORY OF PRESENT ILLNESS: This is an 87-year-old female who was discharged on 02/08/2018 after an approximate 10 to 11-day admission from 01/27/2018 to 02/08/2018 for gross hematuria with a n extensive workup by Urology service. The patient underwent continuous bladder irrigation, cystosco py, and bladder biopsy with eventual resolution of the hematuria. Biopsies of the bladder were negat demterio for malignancy and the patient clinically stabilized with supportive measures. The patient was n oted with mild acute kidney injury during the recent hospitalization, resolving to baseline creatinin e by the time of discharge. The patient was subsequently discharged on 02/08/2018 with coordination for Home Health services; however, returned back to the emergency room on 02/09/2018 with complaints from family members noticing confusion and lethargy. The patient apparently had taken Ambien in the evening prior to this evaluation on 02/09/2018 and was noted with some confusion and wandering throug h her house with a rolling walker. No specific history of fall, trauma, fever, chills, nausea, vomit ing, or exposure. The patient was given instructions regarding intermittent self-catheterizations du e to high postvoid residuals and placed on ciprofloxacin 250 mg twice daily. The patient currently d enies any specific symptoms or complaints and states she feels fine. In the emergency room, the della ent underwent general evaluation including laboratory assessment showing mild increase in creatinine above baseline to 2.04 and elevated troponin I ranging between 0.035 to 0.041. ER personnel attempte d to transfer the patient to [facility] in [place]; however, due to the lab abnormalit ies and concern for mild acute kidney injury, the patient was placed on the telemetry unit. PAST MEDICAL HISTORY: 1. Hemorrhagic cystitis with negative biopsy. 2. Chronic kidney disease, stage 4. 3. Chronic normocytic anemia. 4. Hypertension. 5. Dyslipidemia. 6. Metabolic acidosis. PAST SURGICAL HISTORY: 1. Status post left eye retinal surgery. 2. Status post cystoscopy and ureteroscopy. CURRENT MEDICATIONS: 1. Norvasc 10 mg 1 tablet p.o. daily. 2. Ciprofloxacin 250 mg p.o. b.i.d. 3. Eye lubricant 3 drops to the right eye t.i.d. 4. Pepcid 20 mg p.o. daily. 5. Feosol 325 mg p.o. b.i.d. 6. Systane Balance 2 drops in each eye q.i.d. 7. Crestor 20 mg p.o. daily. 8. Florastor 250 mg p.o. daily. 9. Sodium bicarbonate 650 mg p.o. t.i.d. 10. Ambien 5 mg p.o. at bedtime p.r.n. ALLERGIES: BACITRACIN, NEOMYCIN, PENICILLIN. FAMILY HISTORY: Mother of pneumonia and its complications at age 86. Two sons were . SOCIAL HISTORY: The patient resides in the [place], [place] area. Lives with her daughter. Ambulate s with the use of rolling walker. No current alcohol, tobacco, or illicit drug use. REVIEW OF SYSTEMS: The following complete review of systems was negative, unless otherwise mentioned in the HPI or below: Constitutional: Weight loss or gain, ability to conduct usual activities. Skin: Rash, itching. Eyes: Double vision, pain. ENT/Mouth: Nose bleeding, neck stiffness, pain, tenderness. Cardiovascular: Palpitations, dyspnea on exertion, orthopnea. Respiratory: Shortness of breath, wheezing, cough, hemoptysis, fever or night sweats. Gastrointestinal: Poor appetite, abdominal pain, heartburn, nausea, vomiting, constipation, or diarrhea. Genitourinary: Urgency, frequency, dysuria, nocturia. Musculoskeletal: Pain, swelling. Neurologic/Psychiatric: Anxiety, depression. Allergy/Immunologic: Skin rash, bleeding tendency. Otherwise negative except as stated per HPI. PHYSICAL EXAMINATION: VITAL SIGNS: Currently, blood pressure 168/71, pulse 76, respiratory rate 16, temperature 98.2 degre es Fahrenheit, O2 saturation 92% on room air. GENERAL APPEARANCE: This is an 87-year-old female, alert and oriented x3, pleasant, conver hailey, in no acute distress. HEENT: Pupils are equal, round, and reactive to light and accommodation. Extraocular muscles are in tact. No scleral icterus. No conjunctival injection. Nares patent. OP is clear. Oral mucosa dry appearing. NECK: Supple. No cervical adenopathy, no thyromegaly, no carotid bruits, no JVD appreciated. Cervi aldo spine with full active and passive range of motion. CHEST: Lungs are clear to auscultation bilaterally. CARDIOVASCULAR: S1, S2 without noted murmur, rub, or gallop. ABDOMEN: Rounded, soft, nontender, nondistended. Bowel sounds are positive in all four quadrants. There is no hepatosplenomegaly. No abdominal bruits. No rebound or guarding appreciated. EXTREMITIES: Warm and dry with fair turgor. No clubbing, cyanosis, or asymmetric edema appreciated. Pulses palpable distally at the dorsalis pedis, posterior tibial, and popliteal arteries bilaterall y. Capillary refill is less than 2 seconds. NEUROLOGIC: Cranial nerves II-XII are grossly intact. No focal or lateralizing signs appreciated. PERTINENT LABORATORY AND X-RAY FINDINGS: Sodium 138, potassium 4.1, chloride 110, CO2 of 18, BUN 37, creatinine 2.04, estimated GFR of 23. LFTs within normal limits. Troponin I ranging between 0.036 and 0.041. TSH is 5.2. CBC showed a white blood cell count of 5.8, hemoglobin 9, hematocrit 27, MCV 95, platelet count 218 with a normal differential. Telemetry monitoring shows sinus mechanism witho ut acute arrhythmia or dysrhythmia. ASSESSMENT AND PLAN: 1. Acute kidney injury on chronic kidney disease stage IV. Mild creatinine elevation above baseline values. We will initiate normal saline at 75 mL per hour. Avoid nephrotoxic agents and contrast me alondra. Repeat creatinine in the a.m. 3. Acute toxic-metabolic encephalopathy, mild. Suspect secondarily to Ambien exposure. Hold Ambien and psychotropic agents. 4. Hemorrhagic cystitis. Continue ciprofloxacin 250 mg p.o. b.i.d. Intermittent bladder self-louis terizations q.i.d. 5. Metabolic acidosis. Continue sodium bicarbonate 650 mg p.o. t.i.d. 6. Elevated troponin I. Suspect secondarily to chronic kidney disease stage IV. No evidence to sug gest acute coronary syndrome. 7. Prophylaxis. Sequential compression devices while in bed. Pepcid 20 mg p.o. b.i.d. 8. Code status is DO NOT RESUSCITATE, confirmed with the patient. Surrogate medical decision maker is the patient's daughter.
[2018-02-10] MEDS: Cipro 250 MG TAB PO SCH (05:19)
[2018-02-10 05:52] LABS: Anion Gap 11 mmol/L (10-20); BUN (Urea Nitrogen) 34 mg/dL (9.8-20.1); Calc. Creatinine Clearance 22 mL/min (70-130); Calcium 7.7 mg/dL (7.8-10.44); Carbon Dioxide 19 mmol/L (23-31); Chloride 113 mmol/L (98-107); Estimated GFR-MDRD 24; Glucose 91 mg/dL (83-110); Potassium 3.8 mmol/L (3.5-5.1); Sodium 139 mmol/L (136-145)
[2018-02-10 06:05] LABS: Band 1 % (5-11); Eosinophils 2 % (0-10); Hemoglobin 7.4 g/dL (12.0-16.0); Lymphocytes 37 % (21-51); MDiff Complete? YES; Mean Corpuscular HGB CONC 35.4 g/dL (32.0-36.0); Mean Corpuscular Volume 96.1 fl (81.0-99.0); Mean Platelet Volume 6.5 fL (7.4-10.4); Monocytes 3 % (0-10); Neutrophil 57 % (42-75); Platelet Count 213 thou/uL (130-400); RBC Distribution Width 15.7 % (11.5-14.5); Red Blood Cell (RBC) Count 2.19 mill/uL (4.20-5.40); White Blood Cell (WBC) Count 4.1 thou/uL (4.8-10.8)
[2018-02-10] MEDS ORDERED: Ferrous Sulfate 325 MG TAB PO SCH (08:00)
[2018-02-10] MEDS: Sodium Bicarbonate Tab 325 MG TAB PO SCH (08:51)
[2018-02-10] MEDS: Lacri-Lube Opth Oint 3.5 GM TUBE R EYE SCH (08:52)
[2018-02-10] MEDS: Polyethylene Glycol OPTH DROP 15 ML BOT EA EYE SCH (08:52)
[2018-02-10 08:57] LABS: Hemoglobin 7.5 g/dL (12.0-16.0); Platelet Count 223 thou/uL (130-400)
[2018-02-10] MEDS ORDERED: Saccharomyces boulardii 250 MG CAP PO SCH (09:00)
[2018-02-10] MEDS ORDERED: Amlodipine 10 MG TAB PO SCH (09:00)
[2018-02-10 13:11] VITALS: BP 139/63; TEMP 98.7
--- NOTE | 2018-02-10 13:14 | DIS ---
DATE OF ADMISSION: 02/09/2018 DATE OF DISCHARGE: 02/10/2018 DISCHARGE DIAGNOSES: 1. Acute kidney injury on chronic kidney disease stage 4, improved. 2. Acute metabolic encephalopathy secondary to Ambien. 3. Hemorrhagic cystitis. 4. Metabolic acidosis, chronic. 5. Elevated troponin I secondary to demand ischemia. 6. Deconditioning. CONSULTATIONS: None. PERTINENT LABORATORY AND X-RAY FINDINGS: CO2 level ranged between 18-19. Creatinine ranged between 1.99-2.04 with estimated GFR ranging between 23-24. Troponin I ranged between 0.035-0.041. TSH 5.2. CBC showed a hemoglobin ranging between 7.4-9.1, platelet count ranged between 213-223. HOSPITAL COURSE: Patient was admitted after initially presenting with intermittent confusion after t aking Ambien at home. The patient with recent prolonged hospital stay for approximately 11 days from 01/27/2018 to 02/08/2018 for hemorrhagic cystitis. The patient underwent extensive evaluation durin g the recent hospitalization, presenting back less than 24 hours after discharge on 02/08/2018 with c onfusion. The patient was noted with mild acute kidney injury, treated with IV fluids without compli cation. The patient was also monitored for hemoglobin showing a chronic anemia similar to prior tren d when reviewing electronic medical record. The patient with known history of hemorrhagic cystitis w ith some residual blood loss with this process. The patient continued intermittent self-catheterizat ion of the bladder recommended by the Urology Service 4 times daily. The patient continued on antibi otic therapy to include ciprofloxacin 250 mg b.i.d. Current recommendations are to continue antibiotic therapy until 02/14/2018. Overall, the patient re mained clinically stable during the hospital course. Alert and oriented x3, tolerating regular oral intake and voiding appropriately. I examined the patient's time of discharge and discussed pertinent laboratory findings as well as followup instructions. The patient has been approved for [facility] and will discharge 02/10/2018. DISCHARGE MEDICATIONS: 1. Amlodipine 10 mg 1 tab p.o. daily. 2. Ciprofloxacin 250 mg p.o. b.i.d. until 02/14/2018. 3. Pepcid 20 mg 1 tab p.o. daily. 4. Feosol 325 mg p.o. b.i.d. 5. Systane Balance 2 drops to each eye q.i.d. 6. Crestor 20 mg p.o. daily. 7. Florastor 250 mg p.o. daily, stop on 02/14/2018. 8. Sodium bicarbonate 650 mg p.o. t.i.d. FOLLOWUP: Patient to follow up with Dr. Wynn at [facility] after discharge. CONDITION ON DISCHARGE: Fair. ACTIVITY: Ad shai. Physical and occupational therapy recommended. SPECIAL INSTRUCTIONS: Repeat CBC on 02/12/2018. Intermittent self-catheterization to the bladder q. i.d. DIET: Regular. CODE STATUS: DO NOT RESUSCITATE. DISPOSITION: Discharged to [facility] on 02/10/2018. Total time preparing and coordinating discharge was 33 minutes.
== END 2018-02-10 13:15 | disposition short-term general hospital (02) ==
LOC: ERS 07:56 → INTOOBSV 14:12 → 2NO 14:12
PROVIDERS: ADMIT Family Medicine; ATTEND Family Medicine
DX: N17.9 Acute kidney failure, unspecified (principal); N18.4 Chronic kidney disease, stage 4 (severe); G92 Toxic encephalopathy; T42.6X5A Adverse effect of other antiepileptic and sedative-hypnotic drugs, initial encounter; N30.90 Cystitis, unspecified without hematuria; E87.2 Acidosis; I24.8 Other forms of acute ischemic heart disease; D64.9 Anemia, unspecified; Z79.899 Other long term (current) drug therapy; Z79.2 Long term (current) use of antibiotics; Z88.0 Allergy status to penicillin; Z88.1 Allergy status to other antibiotic agents
CPT/HCPCS: 51701; 51798; 80048; 82553; 83735; 84484 ×2; 85007; 85014; 85018; 85027; 85049; 93005; 96360; 99285; G0378; 36415; 80053; 84443; 85025